=== PATIENT | male | born 1935 | race Caucasian/White ===

== ENCOUNTER 2017-09-10 16:11 | Inpatient (IN) | payer OTHER ==
[2017-09-10] MEDS ORDERED: MAG HYDROX/AL HYDROX/SIMETH 30 ML UDCUP PO ONE (16:24)
[2017-09-10] MEDS ORDERED: FAMOTIDINE 20 MG/NACL 50 ML IV ONE (16:24)
[2017-09-10] MEDS ORDERED: HYOSCYAMINE SULFATE 0.125 MG TAB PO ONE (16:24)
[2017-09-10] MEDS ORDERED: LIDOCAINE 2% VISCOUS 15 ML UDCUP PO ONE (16:24)
--- NOTE | 2017-09-10 16:33 | EDPHY ---
H & P Time Seen by Provider: 09/10/17 16:18 HPI/ROS: HPI Shortness of breath, burning in throat. 82-year-old male by private vehicle with his and daughter. This patient comes from [facility] where he lives with his . They moved here from [place] back in March. He has a history of atrial fibrillation and is on Eliquis, he has a pacemaker and has a history of type 1 diabetes with associated complications. He complains today of a sensation of burning in his throat up through his chest and progressively worsening shortness of breath and fatigue for the last 3 days. ROS: Constitutional: No fever, no chills. As above. Eyes: No discharge. No changes in vision. ENT: No sore throat. No nasal congestion or rhinorrhea. Respiratory: No cough. As above. Cardiac: As above, no new palpitations. Gastrointestinal: No abdominal pain, no vomiting, no diarrhea. Genitourinary: No hematuria. No dysuria or increased frequency with urination. Musculoskeletal: No back pain. No neck pain. No myalgias or arthralgias. Skin: No rashes. Neurological: No headache. No focal weakness or altered sensation. Past medical history: Type 1 diabetes, neuropathy, left upper extremity fistula , atrial fibrillation on Eliquis, pacemaker, kidney transplant, legally blind, left foot amputation. Social history: Nonsmoker. No alcohol. Here with his and daughter who is at the bedside. Physical Exam: General Appearance: Alert, mildly dyspneic, not in distress. He appears thin. This patient is responding to questions appropriately and in full sentences. This patient appears well-hydrated and well-nourished. Eyes: Pupils equal and round no pallor or injection. No lid edema, erythema or injection. ENT, Mouth: Mucous membranes are moist. The pharyngeal tissues are unremarkable. No edema or swelling. No asymmetry suggestive of abscess. No erythema or exudates. Respiratory: There are no retractions, lungs lung sounds anteriorly are shallow and distant. No wheezing. No rhonchi. Mild tachypnea. Cardiovascular: Irregular, irregular rhythm. No murmur. Gastrointestinal: Abdomen is soft and nontender, no masses, bowel sounds normal. No focal tenderness at McBurney's point. No Cameron sign. Neurological: Motor sensory function is grossly intact. Cranial nerves are normal. Gait is normal. Skin: Warm and dry, no rashes. Musculoskeletal: Neck is supple and nontender. Extremities are symmetrical. Left upper extremity AV fistula. All joints range without pain or impingement. Psychiatric: No agitation. No depression. Database: EKG: EKG time is 4:48 p.m.; EKG shows a narrow complex normal sinus versus ectopic rhythm with a ventricular rate of 74. 1st degree AV block noted, the QRS, QT intervals are within normal limits. PVC noted. There are no ST-T wave changes indicative of ischemic or injury pattern. No evidence of right heart strain. Interpreted by me. Imaging: Chest x-ray AP portable; the cardiac mediastinal silhouette is unremarkable. Right upper wall pacemaker. Leads appear to be intact. Interstitial lung disease. No evidence of infiltrate or pneumothorax. No acute cardiopulmonary disease process noted. Interpreted by me. Procedures: Emergency department course: Vital signs reviewed. He is moderately hypertensive. Pulse oximetry on room air is 97%. IV placed. Patient placed on a order packer or packager. He was placed on 2-3 L of nasal cannula oxygen. EKG obtained and reviewed by myself. 5:40 p.m., patient re-evaluated. Resting comfortably at this time. He feels much better after GI cocktail and Pepcid. He denies any sensation of burning from his stomach up to his chest. He also feels much less short of breath on oxygen. Pulse oximetry on 2 L of nasal cannula oxygen is 98-100%. I discussed the results of his diagnostic workup with him and his family. Plan for admission and further evaluation by hospitalist service reviewed. All of their questions were answered. Hospitalist paged. 5:45 p.m., spoke with on-call hospitalist. Case discussed in detail. Echocardiogram ordered. Results of this test will be followed up by the hospitalist service. The patient's remaining emergency department course under my care has been uneventful. The patient was admitted to telemetry in stable condition under the care of Dr. Dank Lomeli. Differential Diagnosis: The differential diagnosis on this patient includes but is not limited to congestive heart failure, pulmonary embolism, diabetic ketoacidosis, acute coronary syndrome, pericardial effusion, GERD, peptic ulcer disease. This represents a partial list of diagnoses considered. These considerations are based on history, physical exam, past history, reassessment and diagnostic testing. Constitutional: Initial Vital Signs O2 Sat (%) 100 05/13/18 16:24 O2 Delivery Mode Nasal Cannula O2 (L/minute) 3 Allergies/Adverse Reactions: No Known Allergies Allergy (Unverified 09/10/17 16:20) Home Medications: Medication Instructions Recorded Acetaminophen [Tylenol 325mg (*)] 325 mg PO DAILY PRN 09/10/17 Alfuzosin HCl [Alfuzosin HCl ER] 10 mg PO DAILY 09/10/17 Allopurinol [Allopurinol 100 MG 100 mg PO DAILY 09/10/17 (*)] Apixaban [Eliquis] 2.5 mg PO BID 09/10/17 Cholecalciferol Vit D3 [Vitamin D3 1,000 units PO DAILY 09/10/17 (*)] Finasteride [Proscar 5 MG (*)] 5 mg PO DAILY 09/10/17 Folic Acid/Vit B Com W/C 1 each PO DAILY 09/10/17 [Nephro-Marco Rx (RX)] Herbals/Supplements -Info Only 1 ea PO DAILY 09/10/17 Insulin Aspart [Novolog Flexpen] 0 unit SQ AC 09/10/17 Insulin Glargine,Hum.rec.anlog 8 - 10 units SQ DAILY 09/10/17 [Lantus Solostar] Lisinopril [Lisinopril] 20 mg PO HS 09/10/17 Midodrine HCl [Midodrine HCl] 5 mg PO DAILY PRN 09/10/17 Mycophenolate Mofetil [Cellcept] 500 mg PO BID 09/10/17 Pantoprazole Sodium [Protonix 40mg 40 mg PO DAILY 09/10/17 (*)] Polyethylene Glycol 3350 [Miralax 17 gm PO DAILY PRN 09/10/17 17 gm (*)] Ursodiol [Actigall 300MG (*)] 300 mg PO BID 09/10/17 cycloSPORINE, MODIFIED 25 mg PO BID 09/10/17 [Cyclosporine Modified] hydrALAZINE [Apresoline 10 mg (*)] 10 mg PO HS 09/10/17 predniSONE [predniSONE] 5 mg PO DAILY 09/10/17 Medical Decision Making - Diagnostics Imaging Results: Imaging Impressions Chest X-Ray 09/10/17 16:24 Impression: 1. Peribronchial thickening and some mild bibasilar fibrosis. 2. There is no evidence of congestive heart failure, or definite focal alveolar consolidation. - Data Points Laboratory Results: Laboratory Results 09/10/17 16:30 09/10/17 16:30 09/10/17 09/10/17 09/10/17 16:30 16:30 16:30 WBC 8.52 10^3/uL 10^3/uL (3.80-9.50) RBC 5.57 10^6/uL 10^6/uL (4.40-6.38) Hgb 15.5 g/dL g/dL (13.7-17.5) Hct 48.4 % % (40.0-51.0) MCV 86.9 fL fL (81.5-99.8) MCH 27.8 pg L pg (27.9-34.1) MCHC 32.0 g/dL L g/dL (32.4-36.7) RDW 15.4 % H % (11.5-15.2) Plt Count 688 10^3/uL H 10^3/uL (150-400) MPV 10.5 fL fL (8.7-11.7) Neut % (Auto) 72.0 % % (39.3-74.2) Lymph % (Auto) 15.0 % % (15.0-45.0) [place] % (Auto) 10.7 % % (4.5-13.0) Eos % (Auto) 1.2 % % (0.6-7.6) Baso % (Auto) 0.6 % % (0.3-1.7) Nucleat RBC Rel Count 0.0 % % (0.0-0.2) Absolute Neuts (auto) 6.14 10^3/uL 10^3/uL (1.70-6.50) Absolute Lymphs (auto) 1.28 10^3/uL 10^3/uL (1.00-3.00) Absolute Monos (auto) 0.91 10^3/uL H 10^3/uL (0.30-0.80) Absolute Eos (auto) 0.10 10^3/uL 10^3/uL (0.03-0.40) Absolute Basos (auto) 0.05 10^3/uL 10^3/uL (0.02-0.10) Absolute Nucleated RBC 0.00 10^3/uL 10^3/uL (0-0.01) Immature Gran % 0.5 % % (0.0-1.1) Immature Gran # 0.04 10^3/uL 10^3/uL (0.00-0.10) PT 14.2 SEC SEC (12.0-15.0) INR 1.08 (0.83-1.16) APTT 29.9 SEC SEC (23.0-38.0) D-Dimer 0.40 ug/mLFEU ug/mLFEU (0.00-0.50) Sodium 139 mEq/L mEq/L (135-145) Potassium 5.3 mEq/L H mEq/L (3.5-5.2) Chloride 100 mEq/L mEq/L (97-110) Carbon Dioxide 26 mEq/l mEq/l (22-31) Anion Gap 13 mEq/L mEq/L (8-16) BUN 32 mg/dL H mg/dL (7-23) Creatinine 1.1 mg/dL mg/dL (0.7-1.3) Estimated GFR > 60 Glucose 136 mg/dL H mg/dL (70-100) Calcium 11.0 mg/dL H mg/dL (8.5-10.4) Phosphorus 4.5 mg/dL mg/dL (2.5-4.5) Total Bilirubin 1.4 mg/dL mg/dL (0.1-1.4) Conjugated Bilirubin 0.6 mg/dL H mg/dL (0.0-0.5) Unconjugated Bilirubin 0.8 mg/dL mg/dL (0.0-1.1) AST 26 IU/L IU/L (17-59) ALT 16 IU/L L IU/L (21-72) Alkaline Phosphatase 71 IU/L IU/L (38-126) Troponin I 0.039 ng/mL H ng/mL (0.000-0.034) NT-Pro-B Natriuret Pep 3640 pg/mL H pg/mL (0-450) Total Protein 6.8 g/dL g/dL (6.3-8.2) Albumin 3.6 g/dL g/dL (3.5-5.0) TSH 3.560 uIU/mL uIU/mL (0.465-4.680) Medications Given: Discontinued Medications Al Hydroxide/Mg Hydroxide (Maalox Susp) 30 ml PO ONCE ONE Stop: 09/10/17 16:25 Last Admin: 09/10/17 16:38 Dose: 30 ml Hyoscyamine Sulfate (Levsin, Hyomax-Sl) 0.25 mg PO ONCE ONE Stop: 09/10/17 16:25 Last Admin: 09/10/17 16:38 Dose: 0.25 mg Famotidine/Sodium Chloride (Pepcid 20 Mg (Premix)) 50 mls @ 200 mls/hr IV EDNOW ONE Stop: 09/10/17 16:38 Last Admin: 09/10/17 16:39 Dose: 50 mls Lidocaine (Lidocaine 2% Viscous) 15 ml PO ONCE ONE Stop: 09/10/17 16:25 Last Admin: 09/10/17 16:38 Dose: 15 ml Departure - Departure Disposition: [facility] Inpatient Acute Clinical Impression: Dyspnea, Elevated troponin, Possible CHF, Mild hyperkalemia, Thrombocytosis, Prerenal azotemia
--- NOTE | 2017-09-10 16:51 | CPEKG ---
Heart Rate: 70 RR Interval: 857 P-R Interval: 224 QRSD Interval: 82 QT Interval: 370 QTC Interval: 400 P Randlett: 265 QRS Randlett: 22 T Wave Randlett: 62 EKG Severity - ABNORMAL ECG - EKG Impression: SINUS OR ECTOPIC ATRIAL RHYTHM EKG Impression: MULTIPLE VENTRICULAR PREMATURE COMPLEXES EKG Impression: FIRST DEGREE AV BLOCK EKG Impression: LOW VOLTAGE IN FRONTAL LEADS Electronically Signed By: Brennen Washington 10-Sep-2017 17:08:33
[2017-09-10 17:07] LABS: PLATELET COUNT 688 10^3/uL (150-400)
[2017-09-10 17:21] LABS: INR 1.08 (0.83-1.16); PROTIME(PATIENT) 14.2 SEC (12.0-15.0)
[2017-09-10] MEDS ORDERED: MIDODRINE HCL 5 MG TAB PO PRN (19:39)
[2017-09-10] MEDS ORDERED: POLYETHYLENE GLYCOL 3350 17 GM PKT PO PRN (19:39)
[2017-09-10] MEDS ORDERED: ACETAMINOPHEN 325 MG TAB PO PRN (19:41)
[2017-09-10] MEDS ORDERED: ONDANSETRON 4 MG/2 ML VIAL IVP PRN (19:41)
[2017-09-10] MEDS ORDERED: MBX SOLN 30 ML BOTTLE PO PRN (19:41)
[2017-09-10] MEDS ORDERED: ONDANSETRON DISINTEGRATING 4 MG TAB PO PRN (19:41)
--- NOTE | 2017-09-10 20:16 | GHP ---
[f rep st] HISTORY AND PHYSICAL DATE OF ADMISSION: 09/10/2017 The patient is an 82-year-old gentleman with a history of longstanding diabetes, renal transplant, BP H and hypertension who presents with burning in his throat. He has never had GERD before, but he agueda pects that it feels like it. He has not vomited. He has had no hematemesis, coffee-ground emesis or bright red blood or melena. He is not short of breath, although he has recently moved here from [facility] over the winter and he does note a little bit more shortness of breath at baseline. He has not had fever, chills, cough, or sputum. He has not had lower extremity edema. PND, orthopnea. REVIEW OF SYSTEMS: Complete 10-point review of systems conducted, negative except as noted in the HP I. PAST MEDICAL HISTORY: 1. Diabetes times about 58 years. 2. History of duodenal ulcer. 3. Renal transplant in 1998. 4. BPH. 5. History of a biliary surgery that is not entirely clear. It sounds like it was gallbladder relat ed, done at [facility]. 6. Orthostatic hypotension. 7. Hypertension. 8. Pacemaker. 9. Suspected atrial fibrillation. ALLERGIES: No known drug allergies. HOME MEDICATIONS: Alfuzosin, allopurinol, apixaban, vitamin D3, cyclosporine, finasteride, folate, h ydralazine, insulin aspart, insulin glargine, lisinopril, midodrine, mycophenolate mofetil, pantopraz ole, MiraLAX, prednisone 5, Ursodiol. SOCIAL HISTORY: He is retired . Moved to [place] to be with his daughter. Minimal tobacco and alcohol in his life. FAMILY HISTORY: His daughter is present at bedside and healthy. PHYSICAL EXAMINATION: VITAL SIGNS: Temp 37. Blood pressure 178/100, now 155/95. Pulse 80, breathi ng 18 times a minute, 97% on room air. GENERAL: No acute distress. HEENT: Sclerae anicteric. Orop harynx clear. Mucous membranes are moist. NECK: Supple without lymphadenopathy or JVD. LUNGS: Cl ear to auscultation bilaterally. There are no crackles. HEART: S1, S2 without murmurs. ABDOMEN: Soft, nontender, nondistended. LOWER EXTREMITIES: Without edema. Calves are nontender. SKIN: Wit hout rash. NEUROLOGIC: Nonfocal. LABS: White count 8.5, hematocrit 48, platelets are 688,000. He had a previous platelet count that was elevated as well. D-dimer 0.4. Coags are normal. Sodium is 139, potassium 5.3, chloride is 100, bicarb is 26, BUN 32, creatinine 1.1, glucose 136, tori cium is 11. LFTs are normal, other than a slightly bilirubin. Troponin 0.039. BNP is 36 00. Prior in May of this year was 4600. Chest x-ray interpreted by in shows pacemaker in place. No acute cardiopulmonary disease. EKG interpreted by in shows sinus at 70, with normal axis and intervals. No ST or T-wave changes. I discussed the case with Dr. Brennen Washington. ASSESSMENT/PLAN: 82-year-old gentleman with multiple comorbidities here with likely reflux. 1. Reflux. He responded well to a gastrointestinal cocktail in the emergency department. I will co ntinue that as needed. Will continue his proton pump inhibitor. There is no indication of gastroint estinal bleeding. 2. Elevated BNP. Notably he had a BNP earlier which was even higher. The patient is euvolemic. Ec hocardiogram has been ordered. 3. Indeterminate troponin. I suspect this is his baseline. I do not think his gastroesophageal ref lux disease symptoms represent anginal symptoms, and he has chronic kidney disease. We will follow o n telemetry. 4. Anticoagulation. The patient takes therapeutic anticoagulation, has pacemaker. 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 5. Disposition: Observation status. He is therapeutically anticoagulated. /[id number]/MODL
[2017-09-10] MEDS ORDERED: D50W 25 GM/50 ML SYR IVP PRN (20:37)
[2017-09-10] MEDS ORDERED: hydrALAZINE 10 MG TAB PO SCH (21:00)
[2017-09-10] MEDS ORDERED: LISINOPRIL 20 MG TAB PO SCH (21:00)
[2017-09-10] MEDS: CYCLOSPORINE MODIFIED 25 MG PO SCH (21:09)
[2017-09-10] MEDS: APIXABAN 2.5 MG TAB PO SCH (21:09)
[2017-09-10] MEDS: URSODIOL 300 MG CAP PO SCH (21:10)
[2017-09-10] MEDS: MYCOPHENOLATE MOFETIL 250 MG CAP PO SCH (21:10)
[2017-09-11 04:19] LABS: PLATELET COUNT 625 10^3/uL (150-400)
[2017-09-11] MEDS ORDERED: NON-FORMULARY NEW DRUG (Insulin Aspart [Novolog Flexpen] 0 UNIT) SQ SCH (07:30)
[2017-09-11] MEDS ORDERED: INSULIN GLARGINE 100 UNITS/ML SYRINGE SC ONE (08:15)
[2017-09-11] MEDS: INSULIN LISPRO 100 UNIT/ML SC SCH ×2 (08:17→11:57)
[2017-09-11] MEDS: APIXABAN 2.5 MG TAB PO SCH (08:18)
[2017-09-11] MEDS: MYCOPHENOLATE MOFETIL 250 MG CAP PO SCH (08:18)
[2017-09-11] MEDS: CYCLOSPORINE MODIFIED 25 MG PO SCH (08:18)
[2017-09-11] MEDS: URSODIOL 300 MG CAP PO SCH (08:18)
[2017-09-11] MEDS ORDERED: predniSONE 5 MG TAB PO SCH (09:00)
[2017-09-11] MEDS ORDERED: Herbals/Supplements -Info Only PO SCH (09:00)
[2017-09-11] MEDS ORDERED: FINASTERIDE 5 MG TAB PO SCH (09:00)
[2017-09-11] MEDS ORDERED: CHOLECALCIFEROL VIT D3 1,000 UNITS TAB PO SCH (09:00)
[2017-09-11] MEDS ORDERED: PANTOPRAZOLE SODIUM 40 MG TAB PO SCH (09:00)
[2017-09-11] MEDS ORDERED: INSULIN GLARGINE 100 UNITS/ML UNIT SC SCH (09:00)
[2017-09-11] MEDS ORDERED: NEPHROVITE FOLIC ACID/VIT B&C 1 TAB PO SCH (09:00)
[2017-09-11] MEDS ORDERED: NON-FORMULARY NEW DRUG (Alfuzosin Hcl [Alfuzosin Hcl Er] 10 MG) PO SCH (09:00)
[2017-09-11] MEDS ORDERED: INSULIN GLARGINE HUM REC ANLOG SQ SCH (09:00)
[2017-09-11] MEDS ORDERED: ALLOPURINOL 100 MG TAB PO SCH (09:00)
--- NOTE | 2017-09-11 09:31 | HOSPPROG ---
Hospitalist Progress Note Assessment/Plan: 82-year-old man is admitted with atypical throat pain. He has multiple risk factors for coronary artery disease and a indeterminate troponin. # throat pain: Not exertionally related he thinks is related to food and likely secondary to reflux however with his long-term diabetes and renal transplant and indeterminate troponins it is somewhat concerning for ischemia. Unfortunately he has a paced rhythm in the EKG is difficult to interpret * Cardiology consult for recommendations regarding risk stratification # long-term type 1 diabetes. Continues use medication # history of renal failure status post renal transplant with mild renal insufficiency with a creatinine of 1.1 * Continue to monitor # history of atrial fibrillation currently rate controlled and on Eliquis for anticoagulation. 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 Currently having no further symptoms of his throat pain. This has been going on for several weeks intermittently. Objective: Vital Signs Temp Pulse Resp BP Pulse Ox 36.8 C 74 18 168/88 H 97 09/11/17 07:34 09/11/17 07:34 09/11/17 07:34 09/11/17 07:34 09/11/17 07:34 Laboratory Results 09/11/17 03:20 09/11/17 03:20 09/10/17 09/11/17 09/12/17 05:59 05:59 05:59 Intake Total 150 Output Total 125 Balance 150 -125 PT 14.2 SEC (12.0-15.0) 09/10/17 16:30 INR 1.08 (0.83-1.16) 09/10/17 16:30 - Physical Exam Constitutional: no apparent distress, chronically ill appearing Eyes: PERRL, anicteric sclera, EOMI Ears, Nose, Mouth, Throat: moist mucous membranes, hearing normal Cardiovascular: regular rate and rhythym Respiratory: no respiratory distress, no rales or rhonchi, reduced air movement Gastrointestinal: normoactive bowel sounds, no palpable masses Skin: normal color Neurologic: No facial droop Psychiatric: interacting appropriately ICD10 Worksheet Patient Problems: Problems Problem Status Onset Dyspnea Acute Elevated troponin Acute Thrombocytosis Acute Prerenal azotemia Acute
[2017-09-11 11:33] VITALS: BP 145/75
--- NOTE | 2017-09-11 12:54 | GCON ---
[f rep st] CONSULTATION CARDIOLOGY CONSULTATION DATE OF CONSULTATION: 09/11/2017 CHIEF COMPLAINT: Throat discomfort. HISTORY OF PRESENT ILLNESS: The patient is a gentleman who has had diabetes since he was 24. He has been having some throat discomfort, and it is a burning sensation. It may or may not come wit h food. He has been bothered with this, been having trouble with his appetite, and came to the [facility]. He was admitted to make sure that he did not have any other major pathology. In terms of vascular disease, he is known to have an abnormal nuclear stress test recently done by Dr Dewey Gupta at [facility]. At that time, Dr. Gupta told him that there is no meyer to have a coronary angiogram. He could do it a t the time or he could wait until later on to have an angiogram done. The patient, himself, is retir , and [facility], and he [facility] with the [facility] [place], [place] on the of this month. He has not been getting any chest pain, chest tightness, jaw pain, arm pain. He has no heaviness acr oss his chest. He has nothing that radiates into his arms or jaw. The throat discomfort seems to be better and did not come on with exertion, did not come on with stress, and did not go away with rest. Often happen when he was resting. CARDIAC RISK FACTORS: The patient does not have orthopnea, PND, dyspnea on exertion. He does not have pleuritic chest pain. He has not been having nausea, vomiting, diarrhea. He has not had any fever, chills, or cough. He has not had rheumatic disease. He has a history of atrial fibrillation. He has no history of ventricular arrhythmias. He has a pacemaker in place. He has had atrial fibrillation. Positive for diabetes since age 24, and he is now 82 years old. He has had hypertension. He says he has no hyperlipidemia. No history of coronary artery disease. No history of myocardial infarction. He is not a smoker, although he smoked in the past. He does not have hyperuricemia, and he has no family history of premature coronary artery disease. He has never been obese. His cardiovascular history also includes a history in the past of atrial fibrillation. He has been having some problems with his complications from diabetes including amputations of his to es, vascular complications. He is trying to walk with a walker now. He has a history of neuropathy. He received a pacemaker. ALLERGIES: None. MEDICATIONS: There are approximately 15 medicines, and they are all listed, includes aspirin, many m edicines for his diabetes. He is on allopurinol, though he denies gout, and he is taking an ROB inhi bitor, and he is on other medications to control his blood pressure. SOCIAL HISTORY: He was born in [place], [place]. He was a weapons officer. At age 24, he developed diabetes, and he stayed in the [employer] on a protocol. He remained until he retired. 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 Once he retired, he worked for the [employer] in the [employer]. He was in [place], and he recently moved to be closer to a [facility]. He does live with his . He does not smoke. He does not drink significant amounts of alc ohol. He was disabled from the in 1975 for his diabetes. REVIEW OF SYSTEMS: He has had BPH. History of duodenal ulcer. History of GI bleeds. History of renal transplant, 1998. History of BPH. Question of hyperuricemia The remainder of the review of systems is reviewed in the chart. Ten-point review of systems negativ e except as noted on this record and in the chart. FAMILY HISTORY: There is no family history of premature coronary disease. No history of unexplained sudden at a young age in the family. PHYSICAL EXAMINATION: VITAL SIGNS: Blood pressure is 147/90, respiratory rate is 12. He is lying f lat on the hospital bed comfortably. His heart rate is 75. HEENT: Pupils are equal and reactive. NECK: Supple. CARDIOVASCULAR: PMI in the 5th intercostal space, midclavicular line. He has S1, S2 , systolic murmur at the left sternal border. No diastolic murmur. No S3, S4. No rubs. PULMONARY: Rhonchi bilaterally. Increased AP diameter. No dullness. ABDOMEN: Soft, nontender, and there ar e no masses right now. No bruits. No hepatomegaly. EXTREMITIES: No edema. Negative for inflammat ion. SKIN: Age-related changes. NEUROLOGIC: No focal neurologic deficits. PSYCH: No obvious anx iety or depression. DIAGNOSTIC DATA: His BNP is elevated. Troponins are in the indeterminate range otherwise and are at tached. Chest x-ray shows pacemaker. No acute EKG changes. ASSESSMENT AND PLAN: 1. Throat discomfort. He is being evaluated by the hospitalist service. The patient would really like to get his care at the [facility] and have any procedures that need to be done down there. This throat discomfort does not sound like angina. However, it is something that he does need to pay attention to, and he is aware of that. He will return if it gets serious or worse. He will also be in touch with the [place]. I do not think it is angina. It is atypical. 1. Diabetes mellitus. 2. Renal transplant. 3. Atrial fibrillation. 4. Permanent pacemaker. 5. Hypertension. The patient clearly has vascular disease. He has significant peripheral vascular disease with amputa tion of his toes. He must have very significantly abnormal coronary arteries. He was recently evalu ated by Dr. Patrick Gupta and was told that his nuclear test was abnormal, but that he did not need a co ronary angiogram right now. The patient, himself, wants to transfer his care to the [facility] and does not want coronary angiography now. He wants to receive his care through [facility], and he feels like that is moving along, and they have accepted him. 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 I am certainly concerned about him, and I have encouraged him to get his full cardiovascular evaluati on as soon as possible, and this is something he will do. He is unclear about how much atrial fibrillation he has had or he has not had. He was not put on ful l anticoagulation and, at this time, will take baby aspirin, but with his CHADS-VASc score, he would certainly be a candidate for full anticoagulation. His doctors have not wanted him to do that, so th ey know him better than we do, and this is not a time for us to interfere with their long-term plans for his anticoagulation. He is, however, at significant risk of stroke if he is having atrial fibrillation. He is also at significant risk of stroke given all his vascular disease and his many, many, many year s of diabetes mellitus, as well as hypertension, etc. I have discussed his case with the hospitalist , and the patient is going to be discharged today. His troponins are coming in borderline at the mos t, and the patient wants no further care here. He understands that this is offered to him and that he is not interested in having it. If he should deteriorate, if he should get chest discomfort that comes on with exertion, if he should get chest discomfort that comes along with stress, if he gets chest discomfort that goes away with r est, he is going to be back in touch with the system. All of his questions have been answered. Thank you very much for asking us see the patient. /[id number]/MODL
--- NOTE | 2017-09-11 12:55 | ECHO ---
[email or web address] [address] [address] Main: [phone] Fax: Transthoracic Echocardiogram Name: ROSALINE LEWIS MR#: [id number] Study Date: 09/11/2017 Study Time: 09:45 AM Date of : 1935 Age: 82 year(s) Height: 180.3 cm (71 in.) Weight: 65.32 kg (144 lb.) BSA: 1.83 m2 Gender: Male Examination: Echo Indication: Chest Pain Image Quality: Adequate Contrast: Requested by: Brennen Ruiz BP: 168 mmHg/88 mmHg Heart Rate: Rhythm: Indication: Chest Pain Procedure Staff Terminal Carman: Gwen Velez [facility] Reading Physician: Sae Novak MD Requesting Provider: Conclusions: Normal size left ventricle. Concentric LV hypertrophy. Normal global systolic LV function. EF is 55 %. No regional wall motion abnormality. Normal diastolic LV function. Basal inferior wall in apical 2 chamber appears hypokinetic. Normal size right ventricle. Normal RV function. The left atrium is severely dilated. The right atrium is borderline dilated. The mitral valve is normal in appearance. Moderate mitral annular calcification. Mild mitral valve regurgitation is present. Mitral valve leaflets appear moderately thickened and possibly mildly restricted. Mean pressure gradient of 2 mmhg does not indicate stenosis. Aortic sclerosis is present. There is no significant aortic valve regurgitation. Mild calcific aortic valve stenosis. Mild tricuspid regurgitation is present. The pulmonary artery pressure is normal. Right ventricular systolic pressure measures 32mmHg. There is no pulmonic regurgitation seen. Normal size aortic root measuring 3.3 cm. Normal size ascending aorta measuring 3.6 cm. Measurements: Chambers Valvular Assessment AV/MV Valvular Assessment TV/PV Patient: ROSALINE LEWIS Study Date: 09/11/2017 Page 1 of 3 09:45 AM Normal Normal Normal Name Value Range Name Value Range Name Value Range Ao Trinh (2D): 3.3 cm (1.4 cm-2.6 AV Vmax: 2.10 m/s (1 m/s-1.7 TR Vmax: 2.61 mm/s ( - ) cm) m/s) TR PGmax: 27 mmHg ( - ) IVSd (2D): 1.6 cm (0.6 cm-1.1 AV meanP mmHg ( - ) syst. PAP: 32 mmHg ( - ) cm) FAVIOLA (VTI): 1.4 cm ( - ) PV Vmax: 0.99 m/s (0.6 m/s-0.9 LVDd (2D): 4.2 cm (4.2 cm-5.9 MV E Vmax: 0.93 m/s ( - ) m/s) cm) MV A Vmax: 0.48 m/s ( - ) PV PGmax: 4 mmHg ( - ) LVDs (2D): 2.8 cm (2.1 cm-4 MV E/A: 1.94 ( - ) cm) MV meanP mmHg ( - ) LVPWd (2D): 1.4 cm (0.6 cm-1 cm) MV PHT: 0.093 s ( - ) LVOTd 2.2 cm 2.2 cm mm MVA (Vmax): 1.5 m/s ( - ) LVEF (BP): 55 % (>=55 %) MVA (PHT): 2.4 s ( - ) RVDd(2D): 2.6 cm (1.9 cm-3.8 cmmm) Continued Measurements: Chambers Valvular Assessment AV/MV Valvular Assessment TV/PV Name Value Name Value Name Value LADs: 4.1 cm MV DecTime: 299 m/s CVP (est.): 5 mmHg LADs Lon.2 cm MV E' Septal: 0.06 m/s LA Area: 27.3 cm2 MV E/E' Septal: 15.60 LA Volume: 102 ml MV E/E' Lateral: 7.50 LA Volume Index: 55.7 ml/m2 MV VTI: 35.60 cm RA Area: 19.1 cm2 Additional Vessels Name Value Ao Ascendin.6 cm Findings: Left Ventricle: Normal size left ventricle. Concentric LV hypertrophy. Normal global systolic LV function. EF is 55 %. No regional wall motion abnormality. Normal diastolic LV function. Basal inferior wall in apical 2 chamber appears hypokinetic. Right Ventricle: Normal size right ventricle. Normal RV function. Left Atrium: The left atrium is severely dilated. Right Atrium: The right atrium is borderline dilated. Mitral Valve: The mitral valve is normal in appearance. Moderate mitral annular calcification. Mild mitral valve regurgitation is present. Mitral valve leaflets appear moderately thickened and possibly mildly restricted. Mean pressure gradient of 2 mmhg does not indicate stenosis. Aortic Valve: The aortic valve is tri-leaflet. Aortic sclerosis is present. There is no significant aortic valve regurgitation. Mild calcific aortic valve stenosis. Tricuspid Valve: The tricuspid valve is normal in appearance and function. Mild tricuspid regurgitation is present. The pulmonary artery pressure is normal. Right ventricular systolic pressure measures 32mmHg. Pulmonic Valve: The pulmonic valve is normal in appearance and function. There is no pulmonic regurgitation seen. Aorta: The aorta is normal. Normal size aortic root measuring 3.3 cm. Normal size ascending aorta measuring 3.6 cm. IVC: Not well seen. Patient: ROSALINE LEWIS Study Date: 09/11/2017 Page 2 of 3 09:45 AM Pericardium: No pericardial effusion. No pleural effusion. Exam Comments: Clinical correlation is recommended for evaluation of mitral valve. Calcification of mitral valve with no indication of mitral stenosis by pressure gradients. (No Signature Object) Patient: ROSALINE LEWIS Study Date: 09/11/2017 Page 3 of 3 09:45 AM [id number]
--- NOTE | 2017-09-11 15:29 | GDS ---
[f rep st] DISCHARGE SUMMARY DIAGNOSES: 1. Throat pain, unclear etiology. Patient defers workup and would prefer to work it up at the [facility]. 2. Indeterminate troponins, unclear baseline. The patient would like to follow up with [facility]. 3. Type 1 diabetes, currently on insulin. 4. History of renal failure status post renal transplant, followed at the [facility]. 5. History of atrial fibrillation, on Eliquis for anticoagulation. Has a pacemaker. 6. Benign prostatic hypertrophy by history. 7. Hypertension. 8. History of duodenal ulcer. CONSULTATIONS: Dr. Sae Novak. HOSPITAL COURSE: The patient is an 82-year-old man with multiple medical issues including type 1 alla betes, renal failure status post transplant, hypertension. He comes in with atypical throat pain abi t is associated with food intake and not associated with exertion. However, on his evaluation, his E KG was a paced rhythm and so difficult to interpret, and he had indeterminate troponins. He has been pain free since he was admitted to the hospital. After his GI cocktail was given, his pain went chely y. Cardiology was consulted because of his indeterminate troponins and risk factors. Dr. Novak had a long discussion with the patient. He does have a history of an abnormal stress test in the past a nd has refused angiogram at that time. He continues to refuse further workup here in the hospital, a nd would prefer to follow up with the [facility] for further evaluation of his heart. The pat ient has been pain free. His troponins have been flat with no significant arrhythmias noted on telem etry. I think it is safe for him to be discharged home. However, I do recommend he follow up prompt ly with the [facility] and he has an appointment scheduled in a couple weeks. Cardiology did spend quite a bit of time with him and discussed warning signs to come back in to the ER. However, a t this time, he is back to baseline. CONDITION ON DISCHARGE: Good. Vital signs have been stable. Heart rate in the 70s to 80s. Blood p ressure 145/75. He is 99% on room air. He is alert. Heart is regular. Lungs are relatively clear. He has no significant edema. DISCHARGE MEDICATIONS: Please see discharge medication form. FOLLOWUP: He will follow up with the [facility] as scheduled. He has refused further interve ntion or workup here at the hospital. /[id number]/MODL
--- NOTE | 2017-09-11 15:37 | PDMN ---
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
--- NOTE | 2017-09-11 16:29 | ASMTLACE ---
LACE Length of stay for Answers: Less than 1 day current admission Acuity / Level of Answers: Yes Care: Did the patient have an inpatient admission? Comorbidities - select Answers: Diabetes (uncontrolled or all that apply controlled) Other Notes: Pacemaker # of Emergency department Answers: 1-2 visits in the last 6 months Score: 6 Date Signed: 09/11/2017 04:29 PM Electronically Signed By:Yanelis Whiteside RN
--- NOTE | 2017-09-13 13:42 | ASDISCHSUM ---
Discharge Information Plan Status:Home with No Needs Medically Cleared to Leave:09/11/2017 Discharge Date:09/11/2017 01:10 PM CM D/C Disposition:Home, Routine, Self-Care ADT D/C Disposition:Home, Routine, Self-Care Projected Discharge Date:09/11/2017 01:10 PM Transportation at D/C: Discharge Delay Reason: Follow-Up Date:09/11/2017 01:10 PM Discharge Slot: Final Diagnosis: Placement Information Patient Contact Information Contact Name:JOHNWILNERTATAPARVIZ Relationship: Address:[address] [address] City:[place] Alternate Phone: State/Zip Code:[place] [address] Email: Financial Information Financial Class:Medicare Primary Plan Desc:MEDICARE INPATIENT Primary Plan Number:[id number] Secondary Plan Desc:[facility] Secondary Plan Number:[id number] Assessment Information LACE LACE Length of stay for Answers: Less than 1 day current admission Acuity / Level of Answers: Yes Care: Did the patient have an inpatient admission? Comorbidities - select Answers: Diabetes (uncontrolled or all that apply controlled) Other Notes: Pacemaker # of Emergency department Answers: 1-2 visits in the last 6 months Score: 6 Date Signed: 09/11/2017 04:29 PM Electronically Signed By:Yanelis Whiteside RN Intervention Information
== END 2017-09-11 13:10 | disposition home or self-care (01) | DRG 155 ==
LOC: F2W 19:44
PROVIDERS: ADMIT Internal Medicine; ATTEND Internal Medicine
DX: R07.0 Pain in throat (principal); Z94.0 Kidney transplant status; R94.31 Abnormal electrocardiogram [ECG] [EKG]; E10.9 Type 1 diabetes mellitus without complications; I48.91 Unspecified atrial fibrillation; N40.0 Benign prostatic hyperplasia without lower urinary tract symptoms; I10 Essential (primary) hypertension; I73.9 Peripheral vascular disease, unspecified; Z79.4 Long term (current) use of insulin; Z95.0 Presence of cardiac pacemaker; Z79.01 Long term (current) use of anticoagulants; Z89.429 Acquired absence of other toe(s), unspecified side
CPT/HCPCS: 96365; J1815; J7512

== ENCOUNTER 2017-11-26 14:46 | Inpatient (IN) | payer OTHER ==
--- NOTE | 2017-11-26 15:01 | EDPHY ---
H & P Time Seen by Provider: 11/26/17 14:58 HPI/ROS: Chief complaint. Stroke activation HPI. Patient is an 82-year-old male presents emergency department with left facial numbness and droop earlier and left arm weakness and numbness. His symptoms began yesterday at 4:00 p.m.. Abrupt onset after having a late lunch. The patient decided he would be better if he went home and laid down. He felt that the symptoms were better when he was lying down however they were present this morning when he woke up. Family has had to convince him to come to the hospital. Family notes that his left facial droop is improved. They note that his speech is normal. He is mentating appropriately. However he continues to have left arm weakness. Leg does not seem to be involved. No similar symptoms previously. No headache, chest pain, shortness of breath. Patient is on Eliquis as a blood thinner for atrial fibrillation. He also has a kidney transplant on cyclosporin and prednisone. No fever ROS Constitutional. no fever/chills, no weakness Eyes. no problems with vision ENT. no sore throat, no nasal drainage Cardiovascular. no chest pain Respiratory. no shortness of breath, no cough Abdominal. no abdominal pain, no nausea/vomiting, no diarrhea . no problems urinating MS. no calf pain/swelling, no neck/back pain, no joint pain Skin. no rash Lymph. no swollen glands Neuro. Left face numbness and droop. Left arm weakness. Past Medical/Surgical History: Kidney transplant, atrial fibrillation, diabetes, pacemaker, left arm fistula, blind, peptic ulcer disease, left foot amputation, cholecystectomy Social History: , nonsmoker, no alcohol Smoking Status: Former smoker Physical Exam: General Appearance: Alert well-developed male mild distress vital signs are stable Eyes: Pupils equal and round no pallor or injection. ENT, Mouth: Mucous membranes are moist. Respiratory: There are no retractions, lungs are clear to auscultation. Cardiovascular: Regular rate and rhythm. Gastrointestinal: Abdomen is soft and nontender, no masses, bowel sounds normal. Neurological: Awake and alert. Speech is normal per family. Cranial nerves are intact without facial droop or numbness now to the face. Weakness and ataxia and pronator drift with the left arm. Ataxic with [id number] with the left index finger. No symptoms for the left leg. Skin: Warm and dry, no rashes. Musculoskeletal: Neck is supple nontender. Extremities symmetrical, full range of motion. Psychiatric: Patient is oriented X 3, there is no agitation. Constitutional: Initial Vital Signs Heart Rate 72 11/26/17 15:00 Respiratory Rate 18 11/26/17 15:00 Blood Pressure 131/71 H 11/26/17 15:00 O2 Sat (%) 99 11/26/17 15:00 O2 Delivery Mode Room Air Allergies/Adverse Reactions: No Known Allergies Allergy (Verified 11/26/17 15:02) Home Medications: Medication Instructions Recorded Acetaminophen [Tylenol 325mg (*)] 325 mg PO DAILY PRN 09/10/17 Alfuzosin HCl [Alfuzosin HCl ER] 10 mg PO DAILY 09/10/17 Allopurinol [Allopurinol 100 MG 100 mg PO DAILY 09/10/17 (*)] Apixaban [Eliquis] 2.5 mg PO BID 09/10/17 Cholecalciferol Vit D3 [Vitamin D3 1,000 units PO DAILY 09/10/17 (*)] Finasteride [Proscar 5 MG (*)] 5 mg PO DAILY 09/10/17 Folic Acid/Vit B Com W/C 1 each PO DAILY 09/10/17 [Nephro-Marco Rx] Herbals/Supplements -Info Only 1 ea PO DAILY 09/10/17 Insulin Aspart [Novolog Flexpen] 0 unit SQ AC 09/10/17 Insulin Glargine,Hum.rec.anlog 8 - 10 units SQ DAILY 09/10/17 [Lantus Solostar] Lisinopril 20 mg PO HS 09/10/17 Midodrine HCl 5 mg PO DAILY PRN 09/10/17 Mycophenolate Mofetil [Cellcept] 500 mg PO BID 09/10/17 Pantoprazole Sodium [Protonix 40mg 40 mg PO DAILY 09/10/17 (*)] Polyethylene Glycol 3350 [Miralax 17 gm PO DAILY PRN 09/10/17 17 gm (*)] Ursodiol [Actigall 300MG (*)] 300 mg PO BID 09/10/17 cycloSPORINE, MODIFIED 25 mg PO BID 09/10/17 [Cyclosporine Modified] hydrALAZINE [Apresoline 10 mg (*)] 10 mg PO HS 09/10/17 predniSONE 5 mg PO DAILY 09/10/17 Medical Decision Making - Diagnostics EKG Interpretation: EKG is interpreted by me and shows paced rhythm. QRS normal. Frequent PVCs. No significant ST elevation or depression. The rate is 75 Imaging Results: Imaging Impressions Head CT 11/26/17 14:51 Impression: 1. No acute intracranial hemorrhage or evidence of acute ischemia. 2. Atrophy and diffuse confluent white matter disease. Findings discussed with Emergency Department physician, Kevin Orellana on 2017, 15:08. Noncontrast head CT reviewed by me and discussed with Dr. Rasmussen shows atrophy and white matter disease but no intracranial bleeding Procedures: IV normal saline, monitor Stroke activation is called [facility] consulted and examines the patient on the robot ED Course/Re-evaluation: Patient remains stable on re-evaluation 3:30 p.m.. The patient and family and I discussed laboratory EKG imaging study results. We discussed treatment plan including recommendation for admission. They expressed understanding and agreement I consulted and discussed the case with Dr. Luther for [facility]. Because of the kidney transplant he recommends no further contrast studies. As the patient has a pacemaker he recommends no MRI. I consulted discussed case with Dr. Small, hospitalist, who agrees to the admission Differential Diagnosis: This appears to be CVA but he is outside of treatment window at approximately 23 hr post symptom onset. He has had a kidney transplant an is a immunosuppressed. No further perfusion studies are recommended because of contrast toxicity the kidney. No MRI is recommended at this point in time as the the patient has a pacemaker. Recommendation is for ultrasound and repeat non contrast CTs. Critical Care Time: Critical care time exclusive procedures 45 min - Data Points Laboratory Results: Laboratory Results 11/26/17 15:00 11/26/17 15:00 11/26/17 11/26/17 11/26/17 15:01 15:00 15:00 WBC RBC Hgb POC Hgb 17.7 gm/dL H gm/dL (13.7-17.5) Hct POC Hct 52 % H % (40-51) MCV MCH MCHC RDW Plt Count MPV Neut % (Auto) Lymph % (Auto) Ballard % (Auto) Eos % (Auto) Baso % (Auto) Nucleat RBC Rel Count Absolute Neuts (auto) Absolute Lymphs (auto) Absolute Monos (auto) Absolute Eos (auto) Absolute Basos (auto) Absolute Nucleated RBC Immature Gran % Immature Gran # PT INR APTT POC Sodium 139 mEq/L mEq/L (135-145) Sodium 136 mEq/L mEq/L (135-145) POC Potassium 4.3 mEq/L mEq/L (3.3-5.0) Potassium 4.6 mEq/L mEq/L (3.3-5.0) POC Chloride TNP Chloride 104 mEq/L mEq/L (97-110) Carbon Dioxide 22 mEq/l mEq/l (22-31) Anion Gap 10 mEq/L mEq/L (8-16) POC BUN 45 mg/dL H mg/dL (7-23) BUN 38 mg/dL H mg/dL (7-23) Creatinine 1.1 mg/dL mg/dL (0.7-1.3) POC Creatinine 1.2 mg/dL mg/dL (0.7-1.3) Estimated GFR > 60 Glucose 237 mg/dL H mg/dL (70-100) POC Glucose 233 mg/dL H mg/dL (70-100) Calcium 9.0 mg/dL mg/dL (8.5-10.4) POC Troponin I 0.01 ng/mL ng/mL (0.00-0.08) 11/26/17 11/26/17 11/26/17 15:00 15:00 14:57 WBC 8.27 10^3/uL 10^3/uL (3.80-9.50) RBC 5.79 10^6/uL 10^6/uL (4.40-6.38) Hgb 16.2 g/dL g/dL (13.7-17.5) POC Hgb Hct 50.5 % % (40.0-51.0) POC Hct MCV 87.2 fL fL (81.5-99.8) MCH 28.0 pg pg (27.9-34.1) MCHC 32.1 g/dL L g/dL (32.4-36.7) RDW 16.2 % H % (11.5-15.2) Plt Count 648 10^3/uL H 10^3/uL (150-400) MPV 10.6 fL fL (8.7-11.7) Neut % (Auto) 83.5 % H % (39.3-74.2) Lymph % (Auto) 9.2 % L % (15.0-45.0) Ballard % (Auto) 5.4 % % (4.5-13.0) Eos % (Auto) 0.8 % % (0.6-7.6) Baso % (Auto) 0.6 % % (0.3-1.7) Nucleat RBC Rel Count 0.0 % % (0.0-0.2) Absolute Neuts (auto) 6.90 10^3/uL H 10^3/uL (1.70-6.50) Absolute Lymphs (auto) 0.76 10^3/uL L 10^3/uL (1.00-3.00) Absolute Monos (auto) 0.45 10^3/uL 10^3/uL (0.30-0.80) Absolute Eos (auto) 0.07 10^3/uL 10^3/uL (0.03-0.40) Absolute Basos (auto) 0.05 10^3/uL 10^3/uL (0.02-0.10) Absolute Nucleated RBC 0.00 10^3/uL 10^3/uL (0-0.01) Immature Gran % 0.5 % % (0.0-1.1) Immature Gran # 0.04 10^3/uL 10^3/uL (0.00-0.10) PT 14.9 SEC SEC (12.0-15.0) INR 1.15 (0.83-1.16) APTT 33.6 SEC SEC (23.0-38.0) POC Sodium Sodium POC Potassium Potassium POC Chloride Chloride Carbon Dioxide Anion Gap POC BUN BUN Creatinine POC Creatinine Estimated GFR Glucose POC Glucose 244 mg/dL H mg/dL (70-100) Calcium POC Troponin I Point of Care Test Results: Chemistry 11/26/17 11/26/17 11/26/17 15:01 15:00 14:57 POC Sodium 139 mEq/L mEq/L (135-145) POC Potassium 4.3 mEq/L mEq/L (3.3-5.0) POC Chloride TNP POC BUN 45 mg/dL H mg/dL (7-23) POC Creatinine 1.2 mg/dL mg/dL (0.7-1.3) POC Glucose 233 mg/dL H mg/dL 244 mg/dL H mg/dL (70-100) (70-100) POC Troponin I 0.01 ng/mL ng/mL (0.00-0.08) ISTAT H&H 11/26/17 15:01 POC Hgb 17.7 gm/dL H gm/dL (13.7-17.5) POC Hct 52 % H % (40-51) Departure - Departure Disposition: [facility] Inpatient Acute Clinical Impression: Acute ischemic stroke Condition: Fair Referrals: Elsa Carias MD [Primary Care Provider] - As per Instructions
--- NOTE | 2017-11-26 15:11 | CPEKG ---
Heart Rate: 75 RR Interval: 800 P-R Interval: 238 QRSD Interval: 90 QT Interval: 424 QTC Interval: 474 P Billings: 0 QRS Billings: 31 T Wave Billings: 15 EKG Severity - ABNORMAL ECG - EKG Impression: ATRIAL-PACED COMPLEXES EKG Impression: VENTRICULAR PREMATURE COMPLEX EKG Impression: FIRST DEGREE AV BLOCK EKG Impression: LOW VOLTAGE IN FRONTAL LEADS Electronically Signed By: Kevin Orellana 26-Nov-2017 15:46:55
[2017-11-26 15:15] LABS: PLATELET COUNT 648 10^3/uL (150-400)
[2017-11-26 15:28] LABS: INR 1.15 (0.83-1.16); PROTIME(PATIENT) 14.9 SEC (12.0-15.0)
--- NOTE | 2017-11-26 15:32 | PDCONSULT ---
[facility] Note: [place] [facility] Note Demographics Consult Type: 6-24 hour Stroke First Name: Osmany Last Name: Salbador Date of : 1935 Age: 82 Gender: Male Referring Provider: Dr Orellana Time of initial page ([place] ): 11/26/2017 15:09 Time of return call ([place] ): 11/26/2017 15:11 Time Ready to Initiate Telemed Consult ([place] Time): 11/26/2017 15:12 HPI Additional History (Free Text): in your old man history of renal transplant on Eliquis. Last evening he developed ataxia in difficulty holding onto his walker with his left arm. He was able to get into the car lay down last night and when he woke up this morning the symptoms were still present. He's been trying to manage the symptoms today but presents to the emergency department this afternoon . Stroke alert was activated for advice and assessment. CT scan is known to be negative for acute stroke at this time [facility] Past Medical History: Hyperlipidemia, Hypertension Past Surgical History: renal transplant Medications: on antihypertensive, CellCept, cyclosporin, prednisone, eliquis Exam Mental Status: awake, follows commands Language: no aphasia, dysarthria Cranial Nerves: extra ocular movements intact, no facial droop, normal facial sensation, visually impaired at baseline. Motor: L upper extremity weakness, L lower extremity weakness Sensory: normal sensation Cerebellar: L finger nose ataxia NIHSS Time (): 11/26/2017 15:14 LOC 1a: 0 = Alert; keenly responsive LOC 1b: 0 = Answers both questions correctly LOC Commands: 0 = Performs both tasks correctly Best Gaze: 0 = Normal Visual: 0 = No visual loss Facial Palsy: 0 = Normal symmetrical movements Motor Arm L: 2 = Some effort against gravity; limb cannot get to or maintain ( if cued) 90 (or 45) degrees, drifts down to bed, but has some effort against gravity Motor Arm R: 0 = No drift; limb holds 90 (or 45) degrees for full 10 seconds Motor Leg L: 1 = Drift; leg falls by the end of the 5-second period but does not hit bed Motor Leg R: 0 = No drift; leg holds 30-degree position for full 5 seconds Limb Ataxia: 1 = Present in one limb Sensory: 0 = Normal; no sensory loss Best Language: 0 = No aphasia; normal Dysarthria: 1 = Oocq-ps-tnwpxqgt dysarthria; patient slurs at least some words Extinction + Inattention: 0 = No abnormality NIHSS: [address]: no bleed Assessment: Acute Ischemic Stroke, left hemiparesis, ataxia of arm - suspect subcortical/lacunar type stroke. He is anticoagulated and outside treatment window. LVO unlikely based on syndrome - would not jeopardize his kidney with CTA for this indication. Plan Lytic/Intervention: NOT IV or IA candidate Labs: HgbA1c, Lipid Panel Imaging: US Carotid Diagnostic test: echocardiogram without bubble Therapy/Eval: PT/OT, Speech/Swallow therapy consult Other: telemetry monitoring, I have discussed my recommendations with the referring provider Additional Recommendations: Repeat CT tomorrow for comparison. (no MRI due to pacemaker) Disposition: admit [facility] Telemedicine: Interactive 2 way audio and visual telecommunication technology was utilized during this visit. Provider Location: [place]
[2017-11-26] MEDS ORDERED: ACETAMINOPHEN 325 MG TAB PO PRN (15:45)
[2017-11-26] MEDS ORDERED: ONDANSETRON 4 MG/2 ML VIAL IVP PRN (15:45)
[2017-11-26] MEDS ORDERED: HYDROCODONE/APAP 5/325 TAB PO PRN (15:45)
[2017-11-26] MEDS ORDERED: ONDANSETRON DISINTEGRATING 4 MG TAB PO PRN (15:45)
[2017-11-26] MEDS ORDERED: ACETAMINOPHEN 650 MG SUPP PR PRN (17:16)
[2017-11-26] MEDS ORDERED: NS 1,000 ML IV SCH (17:30)
[2017-11-26] MEDS ORDERED: D50W 25 GM/50 ML SYR IVP PRN (17:49)
[2017-11-26] MEDS ORDERED: LABETALOL HCL 5 MG/ML 20 ML MDV IVP PRN (17:50)
[2017-11-26] MEDS: INSULIN REGULAR HUMAN 100 UNIT/ML UNIT SC SCH (18:42)
[2017-11-26] MEDS: CARVEDILOL 3.125 MG TAB PO SCH (18:43)
[2017-11-26] MEDS: URSODIOL 300 MG CAP PO SCH (20:43)
[2017-11-26] MEDS: MYCOPHENOLATE MOFETIL 250 MG CAP PO SCH (20:43)
[2017-11-26] MEDS: APIXABAN 5 MG TAB PO SCH (20:43)
[2017-11-26] MEDS: CYCLOSPORINE MODIFIED 25 MG PO SCH (20:43)
--- NOTE | 2017-11-26 23:46 | GHP ---
[f rep st] HISTORY AND PHYSICAL DATE OF ADMISSION: 11/26/2017 CHIEF COMPLAINT: Left-sided facial droop and numbness, as well as left arm numbness and weakness. HISTORY OF PRESENT ILLNESS: The patient is a pleasant 82-year-old gentleman with a past medical hist ory of atrial fibrillation on chronic anticoagulation, as well as hypertension, diabetes mellitus typ e 1, who developed symptoms around 4 p.m. the evening prior to coming to the hospital. He states he was leaving a restaurant with his family when he started to feel a bit lightheadedness and then when getting to the car, he felt numbness of his left arm and noted difficulty in using it. He also state s that he had some numbness of the left face. When he returned home after eating, he laid down to ke a nap and then went to bed for the evening time. Upon awakening this morning, he noted persistent numbness and weakness of the left upper extremity, as well as numbness of his face. He also adds th at he noted some drooling of the left corner of his lip when trying to drink liquids. His family sta cameron they did not notice any facial asymmetry or significant changes to his vocalization. The patient states today he is not having any left lower extremity symptoms other than maybe some mild numbness of the left thigh. The patient was seen in the emergency room and had a CT scan of his head. This d id not show any acute changes. Dr. Sotomayor with [facility] was consulted and it was clinically suspected that he may have a right-sided lacunar infarction. MRI was contraindicated secondary to hi s pacemaker. He was recommended to avoid contrast as well as the patient is status post renal transp lant from 1998. The patient is being admitted for further evaluation, treatment, and therapies due t o his suspected stroke. PAST MEDICAL HISTORY: 1. Atrial fibrillation, status post pacemaker placement. 2. Hypertension. 3. End-stage renal disease, status post renal transplant in 1998. 4. Diabetes mellitus type 1 with a recent hemoglobin A1c of 8.4% obtained earlier this month. 5. BPH. PAST SURGICAL HISTORY: 1. Renal transplant. 2. Pacemaker placement. MEDICATIONS: 1. Albuterol inhaler as needed. 2. Uroxatral 10 mg daily. 3. Allopurinol 100 mg daily. 4. Eliquis 5 mg twice a day. 5. Atorvastatin 40 mg daily. 6. Coreg 3.125 mg twice a day. 7. Vitamin D supplementation. 8. Cyclosporine 25 mg twice a day. 9. Finasteride 5 mg daily. 10. Hydralazine 10 mg nightly. 11. NovoLog sliding scale prior to meals. 12. Lantus 8-10 units daily. 13. Latanoprost eye drops. 14. Lisinopril 20 mg nightly. 15. Midodrine 5 mg daily as needed for systolic blood pressure less than 110. 16. Mycophenolate 500 mg twice a day. 17. Protonix 40 mg daily. 18. Prednisone 5 mg daily. 19. Ursodiol 300 mg twice a day. ALLERGIES: No known drug allergies. FAMILY HISTORY: Mother and father are both . No cause of , they apparently at adv anced age. SOCIAL HISTORY: The patient is currently and lives with his . He is retired from the [employer]. He has 2 daughters who are present at the bedside today. He is a nonsmoker. No significant alcohol use. REVIEW OF SYSTEMS: CONSTITUTIONAL: No complaints of any recent fevers or chills. ENT: No recent u pper respiratory illnesses. CARDIOVASCULAR: No complaints of chest pains, palpitations, or syncopal episodes. RESPIRATORY: No complaints of shortness of breath or productive cough. GI: No nausea, vomiting, diarrhea, or constipation. : No reports of any difficulty with urination. NEUROLOGIC: No complaints of any focal headaches otherwise. Left-sided symptoms as described in the HPI. HEMAT OLOGIC: No history of any deep vein thrombosis or pulmonary embolism. PSYCHIATRIC: No history of a nxiety or depression. ENDOCRINE: No polyuria or heat intolerance. SKIN: No new skin rashes. MUSC ULOSKELETAL: No focal joint pains. PHYSICAL EXAM: VITAL SIGNS: Temperature is afebrile. Blood pressure 131/71, heart rate 72, respira tions 18, saturating 99% on room air. GENERAL: The patient is hard of hearing, but is able to hear m e when I am close to his face. He is able to provide good history. Awake, alert and oriented. HEEN T: Extraocular movements intact. No scleral icterus is noted. NECK: Supple. No thyroid enlargeme nt appreciated. CHEST: Clear with normal respiratory effort. HEART: Regular, suspect paced rhythm . No murmurs. Soft heart sounds. ABDOMEN: Soft, nontender, nondistended. : No Case catheter in place. EXTREMITIES: No significant pitting edema. NEUROLOGIC: No facial asymmetry is appreciat ed. Grossly cranial nerves 2-12 appear intact. Speech also seems intact and according to family at baseline. He has decreased sensation with soft touch on the left face from the left temporal area to the left chin and jaw line. He also has numbness throughout the left arm as compared to the right. His strength, as well, is diminished on the left as compared to the right. Hand grasp is rated at 4 /5 strength compared to 5/5 on the right. Lower extremity strength is equal bilaterally. 2+ patella r reflexes bilaterally. LABORATORIES: White blood cell count is 8, hemoglobin 16, platelets 648. Sodium 136, potassium 4.6, chloride 104, bicarb 22, BUN 38, creatinine 1.1, glucose of 237. ECG shows atrial paced rhythm. CT scan of the head: No acute ischemia. No acute changes noted. Atrophy was seen. ASSESSMENT/PLAN: 1. Cerebrovascular accident. Suspected acute right-sided likely lacunar infarct. Dr. Sotomayor with [facility] was consulted in the emergency room and no intervention was indicated based on timing of presentation. I have also placed a consult for Neurology tomorrow for further recommendations. Otherwise, we will obtain a carotid ultrasound as it sounds like this was many years since he had a l ast carotid ultrasound. I have ordered an echocardiogram with bubble study. He had an echo without bubble study in August of this year. The recommendation also was for CT scan of the head in the morning to reassess for any new stroke development. This will also be helpful to assess for any hemorrhagic conversion as he is on Eliquis. Otherwise, we will recommend PT, OT, and speech consults for tomorr ow. We will keep him n.p.o. overnight. Lipid panel as well ordered for tomorrow. We did briefly di scuss potentially need for short-term rehab placement depending on how he does with therapies. Famil y seem very supportive either way. 2. Atrial fibrillation. Continue with Coreg for rate control. Patient is anticoagulated with Eliqu is. 3. Hypertension. We will hold antihypertensive therapy except the Coreg which we are using for rate control overnight. I have written an order for labetalol should his systolic blood pressure rise ab ove 220. Tomorrow will be around a 48 hour isabel from his stroke so likely we can be more aggressive with his blood pressures if indicated at that time. His family states he has rather labile blood pre ssures and at times requiring midodrine to raise his systolic blood pressure. 4. End-stage renal disease, status post renal transplant. Creatinine seems to be at its baseline. Continue with current prednisone, mycophenolate, and cyclosporine. 5. Diabetes mellitus type 1. I have continued with his Lantus at 5 units nightly if he is n.p.o. fo r now. He typically requires 8-10 units. We will also continue with a q.6 hour regular insulin slid ing scale. 6. BPH. Continue finasteride. 7. Deep venous thrombosis prophylaxis. The patient is anticoagulated. 8. Disposition: The patient is full code status. I have placed him in observation overnight esthela patel further recommendations. /[id number]/MODL
[2017-11-27] MEDS: INSULIN REGULAR HUMAN 100 UNIT/ML UNIT SC SCH ×4 (00:42→18:22)
[2017-11-27 05:38] LABS: PLATELET COUNT 588 10^3/uL (150-400)
--- NOTE | 2017-11-27 08:32 | GCON ---
[f rep st] CONSULTATION NEUROLOGIC CONSULTATION REFERRING PHYSICIAN: Jeferson Small MD HISTORY: The patient is an 82-year-old gentleman who I am asked to see in neurologic consultation re garding a chief complaint of left-sided discoordination and numbness. The history is obtained from [facility] of the medical records as well as direct discussion with the patient. Two evenings ago, he had left a restaurant and experienced what he said was an acute feeling of mild dizziness and he soon be came aware that there was a little bit of numbness in his left face and arm. He believes he might hartman ve had similar symptoms in the past and his perception was that this might just go away. However, it did not and he noticed more problems the next day with abnormal sensation and coordination of the le ft arm and left facial numbness. He was denying headache, chest pain, palpitations, or shortness of breath. He did not feel symptoms were prominent in the left leg. There were no exacerbating or obvi ous alleviating factors for this. It remained relatively mild but had definitely progressed over 24 hours to the point that he knew he ought to go to the hospital for evaluation, which he did. He has subsequently been evaluated in the emergency department and had [facility] consult via teleneurology. During this process, he was documented to have some left-sided deficits and head CT showed no evidenc e of an acute infarction. He was admitted and was not a candidate for other interventional therapies or medical changes because he is already on Eliquis for history of atrial fibrillation and would not have been safe to consider contrast because of kidney transplant. The general feeling was this was probably medical billing representative of a small vessel type event and he was to be monitored in the hospital with close observation. Since admission, he feels that he is about the same. Perhaps, his left arm is a little less numb he says. However, he notes rather profound discoordination of that arm. His mind has been clear as bes t he can tell and still denies any headaches. A further 10-point review of systems is completed and unremarkable except for that noted above. 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 His kidney transplant was around 19 years ago. He has a pacemaker for his atrial fibrillation. Prior to admission, he was on Eliquis and other medications as noted in the history and physical. Th is also includes statin therapy with atorvastatin. SOCIAL HISTORY: He is independent living at the with his . He has children. No smok ing. Rare alcohol in the past. ALLERGIES: No drug allergies. FAMILY HISTORY: Unremarkable. CURRENT MEDICATIONS: The patient's current medications are Tylenol as needed, Eliquis, allopurinol, carvedilol, cyclosporine, Proscar, Theresa as needed, insulin. Eliquis is his current blood thinner for secondary stroke prophylaxis. He remains on the atorvastati n 40 mg daily. He is briefly n.p.o. because of the stroke but will be cleared shortly for that. PHYSICAL EXAM: The blood pressure is 177/77 and has been ranging from 150 to 200 systolic over the l ast 12 hours. Temperature is 36.4, pulse of 54, respirations 17. GENERAL: He is well developed, in no acute distress. EYES: Clear. NECK: Supple with no bruits or masses. CARDIAC EXAM: Regular r ate and rhythm with no murmur. EXTREMITIES: Have no cyanosis or edema. I cannot adequately view th e fundi because of very small pupils. They are about a mm with subtle reactivity. He is legally bli nd and visual field testing is unreliable otherwise, but he can just slightly see my finger. Extraoc ular movements do not show any unique abnormalities other than a little bit of trouble tracking from his loss of vision. The facial sensation is diminished in the left lower face partially. The facial movement seems to be symmetric without definite weakness on movement of the left side of the face. His palate elevates symmetrically. Tongue protrudes midline. No weakness of head turning or shoulde r shrug. Hearing is preserved. He is oriented to person, place, and time. He has good recent and r emote memory as well as normal attention span and concentration and general language skills. Fund of knowledge is normal. The motor examination reveals drift in the left upper extremity and discoordin ation of the left upper extremity with some mild ataxic movements and relative decreased sensation in that left arm compared to the right. Otherwise, sensation is preserved on the right side of the bod y and the left lower extremity. No other areas of ataxic movement. Reflexes are hypoactive in the l ower extremities. No Babinski signs. Right side also hypoactive in general. DATA: The laboratory studies were reviewed and platelet count is 588,000. INR is normal. Chemistry shows glucose varying from 200 to 100. LDL cholesterol is 100. I reviewed the head CT which shows changes consistent with small-vessel ischemic change and generalized atrophy. The patient's NIH Stroke Scale is 6, losing 3 points for being legally blind which is not a new pheno loretta. IMPRESSION: The patient has a history and clinical findings suspicious for a small vessel, lacunar-t ype infarction in the right subcortical white matter with deficits affecting the left face and arm pr edominantly. He has multiple risk factors for small vessel disease. He is already fully anticoagula chidi with Eliquis. We should continue that indefinitely. He is already on statin therapy which shoul d continue and the blood pressure medication is correctly being partially held until he stabilizes, b ut then can resume his regular blood pressure regimen over the next several days. Needs speech, occu pational, and physical therapy. Depending on his ultimate outcome of those evaluations, disposition can be determined for inpatient or outpatient care and whatever further needs might arise. Carotid u ltrasound results are currently pending. Echocardiogram results are pending. Please contact me with any additional questions. /[id number]/MODL
[2017-11-27] MEDS ORDERED: INSULIN GLARGINE 100 UNITS/ML UNIT SC SCH (09:00)
[2017-11-27] MEDS: LATANOPROST 0.005% 2.5 ML OPHT DROPS EACHEYE SCH (09:58)
[2017-11-27] MEDS: CARVEDILOL 3.125 MG TAB PO SCH ×2 (10:08→18:23)
[2017-11-27] MEDS: APIXABAN 5 MG TAB PO SCH ×2 (10:14→20:19)
[2017-11-27] MEDS: ALLOPURINOL 100 MG TAB PO SCH (10:14)
[2017-11-27] MEDS: CYCLOSPORINE MODIFIED 25 MG PO SCH ×2 (10:15→20:19)
[2017-11-27] MEDS: ATORVASTATIN CALCIUM 40 MG TAB PO SCH (10:15)
[2017-11-27] MEDS: FINASTERIDE 5 MG TAB PO SCH (10:16)
[2017-11-27] MEDS: INSULIN GLARGINE 100 UNITS/ML UNIT SC SCH (10:16)
[2017-11-27] MEDS: PANTOPRAZOLE SODIUM 40 MG TAB PO SCH (10:17)
[2017-11-27] MEDS: MYCOPHENOLATE MOFETIL 250 MG CAP PO SCH ×2 (10:17→20:18)
[2017-11-27] MEDS: URSODIOL 300 MG CAP PO SCH ×2 (10:18→20:19)
[2017-11-27] MEDS: predniSONE 5 MG TAB PO SCH (10:18)
[2017-11-27] MEDS: ALFUZOSIN HCL 10 MG PO SCH (10:18)
--- NOTE | 2017-11-27 13:38 | ECHO ---
[email or web address] [address] [address] Main: [phone] Fax: Transthoracic Echocardiogram Name: ROSALINE LEWIS MR#: [id number] Study Date: 11/27/2017 Study Time: 11:29 AM Date of : 1935 Age: 82 year(s) Height: 170.2 cm (67 in.) Weight: 61.69 kg (136 lb.) BSA: 1.72 m2 Gender: Male Examination: Echo with Agitated Saline Indication: Ischemic stroke Image Quality: Adequate Contrast: I.V. dose of agitated saline Requested by: Jeferson Small BP: 163 mmHg/90 mmHg Heart Rate: Rhythm: Indication: Ischemic stroke Procedure Staff Manager Transfusion: Noemi Gonzalez [facility] Reading Physician: Aislinn Wolfe MD Requesting Provider: Conclusions: Normal size left ventricle. Basal inferior and basal inferoseptal hypokinesis. Normal size right ventricle. Normal RV function. There is a pacemaker lead noted in the right ventricle. The left atrium is moderately to severely dilated. An agitated saline study was performed and was negative for intracardiac shunting. The right atrium is borderline dilated. Mild to moderate mitral regurgitation. Mild tricuspid regurgitation is present. Right ventricular systolic pressure measures 44mmHg. The pulmonary artery pressure is mildly increased. Compared with 09/11/2017 estimated PA pressures are higher. Degree of mitral regurgitation is slightly worse. No obvious cardiac source of embolism seen on this study. If there remains a high clinical suspicion for cardioembolic source for stroke consider DALE Measurements: Chambers Valvular Assessment AV/MV Valvular Assessment TV/PV Normal Normal Normal Name Value Range Name Value Range Name Value Range Ao Trinh (MM): 3.8 cm (2.2 cm-3.7 AV Vmax: 1.64 m/s (1 m/s-1.7 TR Vmax: 3.14 mm/s ( - ) cm) m/s) TR PGmax: 39 mmHg ( - ) IVSd (2D): 1.4 cm (0.6 cm-1.1 AV maxP mmHg ( - ) syst. PAP: 44 mmHg ( - ) cm) AV meanP mmHg ( - ) PV Vmax: 1.03 m/s (0.6 m/s-0.9 LVDd (2D): 5.2 cm (4.2 cm-5.9 LVOT Vmax: 0.72 m/s (0.7 m/s-1.1 m/s) cm) m/s) PV PGmax: 4 mmHg ( - ) LVDs (2D): 3.2 cm (2.1 cm-4 FAVIOLA (Vmax): 1.4 cm2 ( - ) cm) FAVIOLA (VTI): 1.4 cm ( - ) LVPWd (2D): 1.0 cm (0.6 cm-1 MV E Vmax: 1.03 m/s ( - ) cm) MV A Vmax: 0.32 m/s ( - ) Patient: ROSALINE LEWIS Study Date: 11/27/2017 Page 1 of 2 11:29 AM LVOTd 2.0 cm 2.0 cm mm MV E/A: 3.22 ( - ) LVEF (BP): 59 % (>=55 %) MV meanP mmHg ( - ) RVDd(2D): 3.1 cm (1.9 cm-3.8 MVA (Vmax): 1.6 m/s ( - ) cmmm) Continued Measurements: Chambers Valvular Assessment AV/MV Valvular Assessment TV/PV Name Value Name Value Name Value LADs Lon.0 cm MV DecTime: 208 m/s CVP (est.): 5 mmHg LA Area: 25.2 cm2 MV E' Septal: 0.04 m/s LA Volume: 82 ml MV E/E' Septal: 25.00 LA Volume Index: 47.7 ml/m2 MV E/E' Lateral: 12.90 RA Area: 18.1 cm2 MV VTI: 36.10 cm Additional Vessels Name Value Ao Ascendin.4 cm Findings: Left Ventricle: Normal size left ventricle. Asymmetrical septal LV hypertrophy. Normal global systolic LV function. EF is 59 %. Basal inferior and basal inferoseptal hypokinesis. Right Ventricle: Normal size right ventricle. Normal RV function. There is a pacemaker lead noted in the right ventricle. Left Atrium: The left atrium is moderately to severely dilated. An agitated saline study was performed and was negative for intracardiac shunting. Right Atrium: The right atrium is borderline dilated. There is a pacemaker lead noted in the right atrium. Mitral Valve: There is moderate thickening of the mitral valve leaflets. Moderate mitral annular calcification. No mitral stenosis is present. Mild to moderate mitral regurgitation. Aortic Valve: The aortic valve is tri-leaflet. Moderate aortic cusp calcification is present. There is no aortic valve regurgitation. No aortic valve stenosis is present. Tricuspid Valve: The tricuspid valve appears normal. Mild tricuspid regurgitation is present. Right ventricular systolic pressure measures 44mmHg. The pulmonary artery pressure is mildly increased. Pulmonic Valve: Pulmonary valve not well visualized. There is no pulmonic regurgitation seen. Aorta: Normal size aortic root measuring 3.8 cm. Normal size ascending aorta measuring 3.4 cm. IVC: The IVC is not visualized. Pericardium: No pericardial effusion. (No Signature Object) Patient: ROSALINE LEWIS Study Date: 11/27/2017 Page 2 of 2 11:29 AM [id number]
--- NOTE | 2017-11-27 14:51 | HOSPPROG ---
Hospitalist Progress Note Assessment/Plan: 82y male with c/o weakness and dizziness. First encounter, chart reviewed. D/W Dr Spencer. #Acute lucunar CVA -cont PT/OT -already on Eliquis -on a statin -BP stable for now -ECHO and carotid US today -D/W Dr Spencer #Afib -rate controlled -Eliquis #HTN -monitor -consider more aggressive therapy tomorrow if elevated #Legally blind -at baseline #ESRD -status post transplant -at baseline -cont meds #DM1 -lantus -SSI #Dispo -unclear -still having weakness -PT/OT recs -change to inpt given acute status and need for further workup -may needs SNF Subjective: Feeling ok. No pain currently. Still some weakness. Objective: Vital Signs Temp Pulse Resp BP Pulse Ox 36.0 C 57 L 7 L 184/81 H 98 11/27/17 12:38 11/27/17 12:38 11/27/17 12:38 11/27/17 12:38 11/27/17 12:38 Laboratory Results 11/27/17 04:45 11/27/17 04:45 11/26/17 11/27/17 11/28/17 05:59 05:59 05:59 Intake Total 0 Output Total 100 110 Balance -100 -110 PT 14.9 SEC (12.0-15.0) 11/26/17 15:00 INR 1.15 (0.83-1.16) 11/26/17 15:00 - Physical Exam Constitutional: no apparent distress, appears nourished, chronically ill appearing Eyes: anicteric sclera, other (blind) Ears, Nose, Mouth, Throat: moist mucous membranes, hearing normal, ears appear normal Cardiovascular: irregularly irregular, No JVD, No edema Respiratory: no respiratory distress, no rales or rhonchi, reduced air movement Gastrointestinal: normoactive bowel sounds, No tenderness, No ascites Skin: warm, normal color, No mottled Musculoskeletal: no joint effusions, pain with ROM, generalized weakness Psychiatric: interacting appropriately, not anxious, not encephalopathic, poor memory ICD10 Worksheet Patient Problems: Problems Problem Status Onset Dyspnea Acute Elevated troponin Acute Thrombocytosis Acute Prerenal azotemia Acute Acute ischemic stroke Acute
--- NOTE | 2017-11-27 16:46 | PDMN ---
Medical Necessity Medical necessity: Change to IP, as of 11/27/17, per [employer]; los >2 mn for ongoing management of acute lucunar CVA w/htn, dizziness & weakness; requiring further workup/monitoring, IVFs, med management & therapies; comorbid advanced age, AFIB on AC, ESRD s/p transplant, legally blind & diabetes
--- NOTE | 2017-11-27 17:16 | ASMTCMCOM ---
CM Note CM Note Notes: Pt admitted to hospital after feeling some numbness on left side. Pt lives with his at the [facility], PT/OT are recommending he go to [facility]. Michelle is waiting for more therapy notes. DC Plan: TBD Date Signed: 11/27/2017 05:15 PM Electronically Signed By:Amber Emery RN
[2017-11-28] MEDS: INSULIN REGULAR HUMAN 100 UNIT/ML UNIT SC SCH ×5 (01:21→20:23)
--- NOTE | 2017-11-28 07:38 | NEUROPROG ---
Assessment: 25 minutes unit time. Patient with clinical stroke and stable deficits. No new recs. Awaiting disposition NIHSS 6. Subjective: Pt reports feeling about the same with no new issues. Objective: Vital Signs Temp Pulse Resp BP Pulse Ox 36.8 C 64 12 183/97 H 97 11/28/17 04:00 11/28/17 04:00 11/28/17 04:00 11/28/17 04:00 11/28/17 04:00 11/27/17 11/28/17 11/29/17 05:59 05:59 05:59 Intake Total 750 Output Total 400 Balance 350 PT 14.9 SEC (12.0-15.0) 11/26/17 15:00 INR 1.15 (0.83-1.16) 11/26/17 15:00 Unchanged left face and arm numbness and weakness of the arm. CT head unchanged, no stroke evident Echo unremarkable Carotid US without stenosis Allergies/Adverse Reactions: No Known Allergies Allergy (Verified 11/26/17 15:02)
[2017-11-28] MEDS: ALFUZOSIN HCL 10 MG PO SCH (10:22)
[2017-11-28] MEDS: APIXABAN 5 MG TAB PO SCH ×2 (10:23→20:23)
[2017-11-28] MEDS: ALLOPURINOL 100 MG TAB PO SCH (10:23)
[2017-11-28] MEDS: CYCLOSPORINE MODIFIED 25 MG PO SCH ×2 (10:24→20:23)
[2017-11-28] MEDS: ATORVASTATIN CALCIUM 40 MG TAB PO SCH (10:24)
[2017-11-28] MEDS: INSULIN GLARGINE 100 UNITS/ML UNIT SC SCH (10:25)
[2017-11-28] MEDS: FINASTERIDE 5 MG TAB PO SCH (10:25)
[2017-11-28] MEDS: LATANOPROST 0.005% 2.5 ML OPHT DROPS EACHEYE SCH (10:26)
[2017-11-28] MEDS: MYCOPHENOLATE MOFETIL 250 MG CAP PO SCH ×2 (10:26→20:23)
[2017-11-28] MEDS: URSODIOL 300 MG CAP PO SCH ×2 (10:27→20:23)
[2017-11-28] MEDS: PANTOPRAZOLE SODIUM 40 MG TAB PO SCH (10:27)
[2017-11-28] MEDS: predniSONE 5 MG TAB PO SCH (10:27)
[2017-11-28] MEDS: CARVEDILOL 3.125 MG TAB PO SCH ×2 (10:46→18:25)
--- NOTE | 2017-11-28 11:17 | HOSPPROG ---
Hospitalist Progress Note Assessment/Plan: [facility] Patient Name: ROSALINE LEWIS Rpt#: [id number] Unit Number: [id number] Attending/ER Physician: Jeferson Small MD Patient Type: ADM IN Adm Date/Source: 11/27/17 EMR Discharge Date: Primary Carrier: MEDICARE OUTPATIENT Patient is an 82-year-old male who presented the emergency room with left facial droop and numbness as well as left arm numbness and weakness. He has a past medical history of atrial fibrillation on chronic and anticoagulation as well as hypertension, diabetes type 1. He had a CT scan of his head that did not show any acute changes. Today is my 1st encounter with the patient. Chart reviewed. Of note the patient is status post a renal transplant so IV contrast was avoided PAST MEDICAL HISTORY: 1. Atrial fibrillation, status post pacemaker placement. 2. Hypertension. 3. End-stage renal disease, status post renal transplant in 1998. 4. Diabetes mellitus type 1 with a recent hemoglobin A1c of 8.4% obtained earlier this month. 5. BPH. PAST SURGICAL HISTORY: 1. Renal transplant. 2. Pacemaker placement. MEDICATIONS: 1. Albuterol inhaler as needed. 2. Uroxatral 10 mg daily. 3. Allopurinol 100 mg daily. 4. Eliquis 5 mg twice a day. 5. Atorvastatin 40 mg daily. 6. Coreg 3.125 mg twice a day. 7. Vitamin D supplementation. 8. Cyclosporine 25 mg twice a day. ROSALINE LEWIS 11/27/17 : 1935 82 F344-1 MR: [id number] ATT DR: Jeferson Small MD General History and Physical Page 1 of 3 Objective: Vital Signs Temp Pulse Resp BP Pulse Ox 36.6 C 68 18 126/76 H 98 11/28/17 08:49 11/28/17 10:46 11/28/17 08:49 11/28/17 10:46 11/28/17 08:49 11/27/17 11/28/17 11/29/17 05:59 05:59 05:59 Intake Total 750 250 Output Total 400 125 Balance 350 125 PT 14.9 SEC (12.0-15.0) 11/26/17 15:00 INR 1.15 (0.83-1.16) 11/26/17 15:00 ICD10 Worksheet Patient Problems: Problems Problem Status Onset Acute ischemic stroke Acute Dyspnea Acute Elevated troponin Acute Prerenal azotemia Acute Thrombocytosis Acute
--- NOTE | 2017-11-28 11:21 | HOSPPROG ---
Hospitalist Progress Note Assessment/Plan: [facility] Patient Name: ROSALINE LEWIS Rpt#: [id number] Unit Number: [id number] Attending/ER Physician: Jeferson Small MD Patient Type: ADM IN Adm Date/Source: 11/27/17 EMR Discharge Date: Primary Carrier: MEDICARE OUTPATIENT Patient is an 82-year-old male who presented the emergency room with left facial droop and numbness as well as left arm numbness and weakness. He has a past medical history of atrial fibrillation on chronic anticoagulation as well as hypertension, diabetes type 1. He had a CT scan of his head that did not show any acute changes. Today is my 1st encounter with the patient. Chart reviewed. Of note the patient is status post a renal transplant so IV contrast was avoided * CVA, lacunar type infarction -he is fully anticoagulated on Eliquis -he is already on statin therapy -his echocardiogram shows that both his atriums are dilated with the left atrium being severely dilated -carotid ultrasound does not show significant stenosis -reviewed the satellite project site monitor he is in sinus rhythm with frequent PVCs * atrial fibrillation -status post pacemaker placement * diabetes type 1 -most recent hemoglobin A1c is 8.4 earlier this month -glucoses are high today * renal transplant -resumed prednisone and cyclosporin * gout -allopurinol * hematuria *Plan: therapies are recommending IP rehab, he wants to further discuss w his Subjective: Terrence is tired, says he didn't sleep last night. Objective: Vital Signs Temp Pulse Resp BP Pulse Ox 36.6 C 68 18 126/76 H 98 11/28/17 08:49 11/28/17 10:46 11/28/17 08:49 11/28/17 10:46 11/28/17 08:49 11/27/17 11/28/17 11/29/17 05:59 05:59 05:59 Intake Total 750 250 Output Total 400 125 Balance 350 125 PT 14.9 SEC (12.0-15.0) 11/26/17 15:00 INR 1.15 (0.83-1.16) 11/26/17 15:00 - Physical Exam Constitutional: appears nourished, not in pain Ears, Nose, Mouth, Throat: hearing normal Cardiovascular: regular rate and rhythym Respiratory: no respiratory distress Gastrointestinal: normoactive bowel sounds Skin: warm Neurologic: AAOx3, weakness (slight weakness on the left upper extremity, strong pull up in toes), No pronator drift, No facial droop Psychiatric: interacting appropriately, not encephalopathic, thought process linear ICD10 Worksheet Patient Problems: Problems Problem Status Onset Acute ischemic stroke Acute Dyspnea Acute Elevated troponin Acute Prerenal azotemia Acute Thrombocytosis Acute
--- NOTE | 2017-11-28 15:12 | ASMTCMCOM ---
CM Note CM Note Notes: [facility] inpatient rehab assessing pt. Spoke with pt, Miranda and two dghtrs about [facility] inpatient rehab. Miranda recently was at [facility] inpatient rehab so family states they are familiar with the program. Pt wants to discuss dispo options with friends/family and let CM know if he is interested in [facility] ipr in the morning. Cm will follow. Date Signed: 11/28/2017 02:29 PM Electronically Signed By:MICAELA Shaver
[2017-11-28] MEDS ORDERED: D50W 25 GM/50 ML SYR IVP PRN (15:22)
[2017-11-29] MEDS: INSULIN GLARGINE 100 UNITS/ML UNIT SC SCH (08:41)
[2017-11-29] MEDS: ATORVASTATIN CALCIUM 40 MG TAB PO SCH (08:42)
[2017-11-29] MEDS: URSODIOL 300 MG CAP PO SCH ×2 (08:42→20:48)
[2017-11-29] MEDS: APIXABAN 5 MG TAB PO SCH ×2 (08:42→20:46)
[2017-11-29] MEDS: predniSONE 5 MG TAB PO SCH (08:42)
[2017-11-29] MEDS: CARVEDILOL 3.125 MG TAB PO SCH ×2 (08:42→18:13)
[2017-11-29] MEDS: FINASTERIDE 5 MG TAB PO SCH (08:42)
[2017-11-29] MEDS: ALLOPURINOL 100 MG TAB PO SCH (08:42)
[2017-11-29] MEDS: PANTOPRAZOLE SODIUM 40 MG TAB PO SCH (08:43)
[2017-11-29] MEDS: MYCOPHENOLATE MOFETIL 250 MG CAP PO SCH ×2 (08:43→20:47)
[2017-11-29] MEDS: CYCLOSPORINE MODIFIED 25 MG PO SCH ×2 (08:43→20:46)
[2017-11-29] MEDS: ALFUZOSIN HCL 10 MG PO SCH (08:44)
[2017-11-29] MEDS: INSULIN REGULAR HUMAN 100 UNIT/ML UNIT SC SCH ×4 (08:44→22:26)
[2017-11-29] MEDS: LATANOPROST 0.005% 2.5 ML OPHT DROPS EACHEYE SCH (08:44)
--- NOTE | 2017-11-29 08:45 | NEUROPROG ---
Assessment: 25 minutes unit time. He is a little better and I am fine with whatever discharge plan he agrees to. Subjective: Pt feels better. He wants home care not SNF Objective: Vital Signs Temp Pulse Resp BP Pulse Ox 36.4 C 64 19 189/95 H 100 11/29/17 07:27 11/29/17 07:27 11/29/17 07:27 11/29/17 07:27 11/29/17 07:27 11/28/17 11/29/17 11/30/17 05:59 05:59 05:59 Intake Total 750 690 450 Output Total 400 300 300 Balance 350 390 150 PT 14.9 SEC (12.0-15.0) 11/26/17 15:00 INR 1.15 (0.83-1.16) 11/26/17 15:00 No major change but more alert and articulate and not confused. Left arm weakness and dysfunction a little better Allergies/Adverse Reactions: No Known Allergies Allergy (Verified 11/26/17 15:02)
--- NOTE | 2017-11-29 12:14 | HOSPPROG ---
Hospitalist Progress Note Assessment/Plan: [facility] Patient Name: ROSALINE LEWIS Rpt#: [id number] Unit Number: [id number] Attending/ER Physician: Jeferson Small MD Patient Type: ADM IN Adm Date/Source: 11/27/17 EMR Discharge Date: Primary Carrier: MEDICARE OUTPATIENT Patient is an 82-year-old male who presented the emergency room with left facial droop and numbness as well as left arm numbness and weakness. He has a past medical history of atrial fibrillation on chronic anticoagulation as well as hypertension, diabetes type 1. He had a CT scan of his head that did not show any acute changes. Of note the patient is status post a renal transplant so IV contrast was avoided. * CVA, lacunar type infarction -he is fully anticoagulated on Eliquis -he is already on statin therapy -his echocardiogram shows that both his atriums are dilated with the left atrium being severely dilated -carotid ultrasound does not show significant stenosis -reviewed the gambling monitor he is in sinus rhythm with frequent PVCs * atrial fibrillation -status post pacemaker placement * diabetes type 1 -most recent hemoglobin A1c is 8.4 earlier this month -glucoses are high today-will increase Lantus from 5 units to 10 units *dizziness -became very dizzy today and had trouble walking -will watch him overnight -recommending to get oob slowly * renal transplant -resumed prednisone and cyclosporin * gout -allopurinol * hematuria *Plan: patient prefers to go home rather than IP rehab; he is not on all of his bp meds at this time. Will eventually need to be resumed. Will need home care PT and OT. Subjective: Terrence is feeling better this afternoon, felt dizzy this morning. Objective: Vital Signs Temp Pulse Resp BP Pulse Ox 36.7 C 65 22 H 123/72 H 98 11/29/17 11:52 11/29/17 11:52 08/01/18 11:52 11/29/17 11:52 11/29/17 11:52 11/28/17 11/29/17 11/30/17 05:59 05:59 05:59 Intake Total 750 690 690 Output Total 400 300 400 Balance 350 390 290 PT 14.9 SEC (12.0-15.0) 11/26/17 15:00 INR 1.15 (0.83-1.16) 11/26/17 15:00 - Physical Exam Constitutional: not in pain, chronically ill appearing Ears, Nose, Mouth, Throat: hearing normal Cardiovascular: regular rate and rhythym Respiratory: no respiratory distress Skin: warm Musculoskeletal: generalized weakness Neurologic: AAOx3, No facial droop Psychiatric: interacting appropriately, not anxious, not encephalopathic, thought process linear ICD10 Worksheet Patient Problems: Problems Problem Status Onset Acute ischemic stroke Acute Dyspnea Acute Elevated troponin Acute Prerenal azotemia Acute Thrombocytosis Acute
[2017-11-29] MEDS ORDERED: HYDROmorphONE/DILAUDID 1 MG/ML INJ IVP PRN (15:09)
--- NOTE | 2017-11-29 15:53 | ASMTCMCOM ---
CM Note CM Note Notes: This morning pt and family state they want home with [facility]. Pt then worked with therapy, was lightheaded and not ambulating safely, family saw this and may be reconsidering [facility] inpatient rehab. PT rec is still inpatient rehab. VM left for [facility] inpatient to please keep pt for consideration. CM to follow. Date Signed: 11/29/2017 03:53 PM Electronically Signed By:MICAELA Shaver
--- NOTE | 2017-11-30 02:46 | CPEKG ---
Heart Rate: 75 RR Interval: 800 P-R Interval: 236 QRSD Interval: 126 QT Interval: 448 QTC Interval: 501 P Freedom: 0 QRS Freedom: -67 T Wave Freedom: 92 EKG Severity - ABNORMAL ECG - EKG Impression: VENTRICULAR-PACED COMPLEXES EKG Impression: FIRST DEGREE AV BLOCK EKG Impression: NONSPECIFIC IVCD WITH LAD EKG Impression: PROBABLE LVH WITH SECONDARY REPOL ABNRM Electronically Signed By: Lavonne Banda 30-Nov-2017 10:19:46
[2017-11-30] MEDS: INSULIN REGULAR HUMAN 100 UNIT/ML UNIT SC SCH ×4 (07:44→22:17)
[2017-11-30] MEDS: MYCOPHENOLATE MOFETIL 250 MG CAP PO SCH ×2 (09:08→22:18)
[2017-11-30] MEDS: URSODIOL 300 MG CAP PO SCH ×2 (09:09→22:19)
[2017-11-30] MEDS: CYCLOSPORINE MODIFIED 25 MG PO SCH ×2 (09:09→22:18)
[2017-11-30] MEDS: ALLOPURINOL 100 MG TAB PO SCH (09:09)
[2017-11-30] MEDS: ATORVASTATIN CALCIUM 40 MG TAB PO SCH (09:09)
[2017-11-30] MEDS: APIXABAN 5 MG TAB PO SCH ×2 (09:09→22:19)
[2017-11-30] MEDS: predniSONE 5 MG TAB PO SCH (09:09)
[2017-11-30] MEDS: PANTOPRAZOLE SODIUM 40 MG TAB PO SCH (09:09)
[2017-11-30] MEDS: FINASTERIDE 5 MG TAB PO SCH (09:09)
[2017-11-30] MEDS: CARVEDILOL 3.125 MG TAB PO SCH ×2 (09:09→17:44)
[2017-11-30] MEDS: ALFUZOSIN HCL 10 MG PO SCH (09:10)
[2017-11-30] MEDS: INSULIN GLARGINE 100 UNITS/ML UNIT SC SCH (09:10)
[2017-11-30] MEDS: LATANOPROST 0.005% 2.5 ML OPHT DROPS EACHEYE SCH (09:10)
--- NOTE | 2017-11-30 11:36 | PDIAF ---
- Diagnosis Diagnosis: CVA Code Status: Full Code - Medication Management Discharge Medications: Medications to Continue on Transfer Allopurinol [Allopurinol 100 MG (*)] 100 mg PO DAILY 09/10/17 [Last Taken ] Cholecalciferol Vit D3 [Vitamin D3 (*)] 1,000 units PO DAILY 09/10/17 [Last Taken 09/10/17] Finasteride [Proscar 5 MG (*)] 5 mg PO DAILY 09/10/17 [Last Taken 09/10/17] Herbals/Supplements -Info Only 1 ea PO DAILY 09/10/17 [Last Taken Unknown] Insulin Aspart [Novolog Flexpen] 0 unit SQ AC 09/10/17 [Last Taken Unknown] Insulin Glargine,Hum.rec.anlog [Lantus Solostar] 8 - 10 units SQ DAILY 09/10/17 [Last Taken 09/10/17] Midodrine HCl 5 mg PO DAILY PRN 09/10/17 [Last Taken Unknown] Mycophenolate Mofetil [Cellcept] 500 mg PO BID 09/10/17 [Last Taken 09/10/17] Pantoprazole Sodium [Protonix 40mg (*)] 40 mg PO DAILY 09/10/17 [Last Taken ] Ursodiol [Actigall 300MG (*)] 300 mg PO BID 09/10/17 [Last Taken 09/10/17] cycloSPORINE, MODIFIED [Cyclosporine Modified] 25 mg PO BID 09/10/17 [Last Taken 09/10/17] hydrALAZINE [Apresoline 10 mg (*)] 10 mg PO HS 09/10/17 [Last Taken 09/09/17] predniSONE 5 mg PO DAILY 09/10/17 [Last Taken 09/10/17] Albuterol [Proventil Inhaler HFA (*)] 1 - 2 puffs IH Q4H 11/26/17 [Last Taken Unknown] Alfuzosin HCl [Uroxatral] 10 mg PO DAILY 11/26/17 [Last Taken Unknown] Apixaban [Eliquis] 5 mg PO BID 11/26/17 [Last Taken 11/26/17] Atorvastatin Calcium [Lipitor 40 mg (*)] 40 mg PO DAILY 11/26/17 [Last Taken Unknown] Carvedilol [Coreg (*)] 3.125 mg PO BIDMEAL 11/26/17 [Last Taken Unknown] Latanoprost 0.005% [Xalatan 0.005% (*)] 1 drops EACHEYE DAILY 11/26/17 [Last Taken Unknown] Discharge Medications: Refer to the Discharge Home Medication list for PRN reason. PICC Care - Routine: N/A - Orders Services needed: Home Care, Registered Nurse, Physical Therapy, Occupational Therapy Home Care Face to Face: I certify that this patient was under my care and that I had the required [id number] encounter meeting the encounter requirements on the discharge day. My findings support the fact that the patient is homebound as defined in Home Care Face to Face Continued: CMS Chapter 7 Medicare Benefits Manual 30.1.1 , The condition of the patient is such that there exists a normal inability to leave home and consequently, leaving home would require a considerable and taxing effort. Diet Texture: Regular Texture Diet, Thin Liquids, Meds Whole w/Liquids - Follow Up Care Current Providers and Referrals: Elsa Carias MD [Primary Care Provider] - As per Instructions
--- NOTE | 2017-11-30 11:40 | ASMTLACE ---
LACE Length of stay for Answers: 4-6 days current admission Acuity / Level of Answers: Yes Care: Did the patient have an inpatient admission? Comorbidities - select Answers: Dementia all that apply Moderate or severe liver or renal disease Peptic ulcer disease Other Notes: AFib; Pacemaker; HTN # of Emergency department Answers: 1-2 visits in the last 6 months Score: 18 Date Signed: 11/30/2017 11:39 AM Electronically Signed By:MICAELA Shaver
--- NOTE | 2017-11-30 13:21 | HOSPPROG ---
Hospitalist Progress Note Assessment/Plan: Patient is an 82-year-old male who presented the emergency room with left facial droop and numbness as well as left arm numbness and weakness. He has a past medical history of atrial fibrillation on chronic anticoagulation as well as hypertension, diabetes type 1. He had a CT scan of his head that did not show any acute changes. Of note the patient is status post a renal transplant so IV contrast was avoided. * CVA, lacunar type infarction -he is fully anticoagulated on Eliquis -he is already on statin therapy -his echocardiogram shows that both his atriums are dilated with the left atrium being severely dilated -carotid ultrasound does not show significant stenosis -reviewed the athletic monitor he is in sinus rhythm with frequent PVCs * atrial fibrillation -status post pacemaker placement -interrigation -await cards consult, D/W Dr Wolfe * diabetes type 1 -most recent hemoglobin A1c is 8.4 earlier this month -glucoses are high today-will increase Lantus from 5 units to 10 units *dizziness -pt normally takes midodrin at home PRN, will order now -became very dizzy today and had trouble walking -will watch him overnight -recommending to get oob slowly -cards to review * renal transplant -resumed prednisone and cyclosporin * gout -allopurinol * hematuria *Plan: patient prefers to go home rather than IP rehab -he is unsafe to DC at this time given hypotension and dizziness. -he is not on all of his bp meds at this time Subjective: Feels weak and tired today. No pain. Unable to get out of bed. Objective: Vital Signs Temp Pulse Resp BP Pulse Ox 36.7 C 83 22 H 126/64 H 97 11/30/17 12:00 11/30/17 12:00 11/30/17 12:00 11/30/17 12:00 11/30/17 12:00 Laboratory Results 11/30/17 03:05 11/30/17 03:05 11/29/17 11/30/17 12/01/17 05:59 05:59 05:59 Intake Total 690 1290 Output Total 300 700 Balance 390 590 PT 14.9 SEC (12.0-15.0) 11/26/17 15:00 INR 1.15 (0.83-1.16) 11/26/17 15:00 - Physical Exam Constitutional: not in pain, chronically ill appearing, cachectic Eyes: PERRL, anicteric sclera, EOMI Ears, Nose, Mouth, Throat: moist mucous membranes, hearing normal, ears appear normal Cardiovascular: tachycardia, No JVD, No edema Respiratory: no respiratory distress, no rales or rhonchi, reduced air movement Gastrointestinal: normoactive bowel sounds, No tenderness, No ascites Skin: warm, normal color, No mottled Musculoskeletal: no joint effusions, joint tenderness, generalized weakness Neurologic: AAOx3 Psychiatric: not anxious, not encephalopathic, poor insight, poor judgement ICD10 Worksheet Patient Problems: Problems Problem Status Onset Acute ischemic stroke Acute Dyspnea Acute Elevated troponin Acute Prerenal azotemia Acute Thrombocytosis Acute
--- NOTE | 2017-11-30 14:19 | ASMTCMCOM ---
CM Note CM Note Notes: Pt not medically stable for d/c, does not want rehab. Pt and dghtr request [facility] inpatient rehab still follow pt as dghtr says today they will have "persuasive" conversation with pt about the benefit of a few rehab days. Updated Catarina at [facility] and Kiki at [facility]. CM to follow. Date Signed: 11/30/2017 02:18 PM Electronically Signed By:MICAELA Shaver
--- NOTE | 2017-11-30 15:49 | GCON ---
[f rep st] CONSULTATION CARDIOLOGY CONSULT DATE OF CONSULTATION: 11/30/2017 CHIEF COMPLAINT: Atrial fibrillation, CVA, labile blood pressure. HISTORY OF PRESENT ILLNESS: We were asked by Donna Colon NP to visit with the patient. 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 He also has paroxysmal atrial f ibrillation and a permanent pacemaker that is a [employer] device. He was admitted on November 26 with symptoms of stroke manifest as left facial droop and left arm weaknes s. He also was feeling dizzy at home, so his family brought him in. He was 23 hours out from sympto m onset and is also chronically on Eliquis. Therefore, was not a candidate for tPA therapy. He has been evaluated by Neurology. Facial droop has improved and almost resolved, but left arm weakness re maki. We were asked to consult because the patient had a blood pressure reading of 67 systolic when sitting up at noon today. Otherwise, his blood pressure has been either normal or high. In fact, on admiss ion to the ER, his blood pressure was between 164 and 188 systolic. Based on noncontrast head CT, there is no acute bleed or large territory of infarct. He most likely has right lacunar infarct as etiology for his neurological deficits. Upon my evaluation today, he reports fatigue and sleeping poorly last night. He has not had angina o r dyspnea. He still has some left arm weakness. ALLERGIES: No known drug allergies. PAST MEDICAL HISTORY: 1. Paroxysmal atrial fibrillation. 2. Permanent pacemaker, [employer]. 3. Renal transplant in 1998, on chronic immunosuppression. 4. Hypertension. 5. Type 1 diabetes. 6. Legal blindness. 7. Dyslipidemia. 8. History of toe amputation. 9. Gout. 10. BPH. OUTPATIENT MEDICATIONS: Midodrine p.r.n., Coreg 3.125 mg twice daily, albuterol, alfuzosin, allopuri nol, Eliquis, vitamin D3, cyclosporine, Proscar, hydralazine, insulin, CellCept, Protonix, prednisone 5 mg daily. SOCIAL HISTORY: The patient is . His and daughter are at the bedside. He has 2 other d aughters who are involved in his care. FAMILY HISTORY: Not applicable to the current case. PHYSICAL EXAM: VITAL SIGNS: Blood pressure currently was 106/64, heart rate has been mostly in the 80s, oxygen saturation 97% on 1 L, he is afebrile. GENERAL: Chronically ill-appearing, fatigued, el jag male. HEENT: Poor dentition. Mucous membranes are somewhat dry. Normocephalic, atraumatic. CARDIOVASCULAR: JVP is less than 10. Regular rate and rhythm with soft, early, systolic murmur at t he left sternal border. LUNGS: Clear to auscultation bilaterally without wheezes, rhonchi, or rales . ABDOMEN: Soft and nontender without obvious masses or hepatosplenomegaly. EXTREMITIES: Have no significant edema. He does have evidence of a left toe amputation. NEURO: Mild weakness of the lef t extremity by handgrip. Very mild left facial droop. He is able to answer questions, but his speec h is slow. LABORATORY STUDIES: White count 3.2, hematocrit 48, and platelets are 595. INR is 1.15. Basic meta bolic panel: Sodium 138, potassium 4.8, chloride 103, bicarb 23, BUN 37, creatinine 1.3. Magnesium 1.6. Point of care troponin was in negative. LDL cholesterol was 100. Echocardiogram reviewed by me: Overall normal LV systolic function. Basal inferior and basal infero septal hypokinesis which was similar to in August of this year. Moderately to severely dilated left atr ium. Negative bubble study. Xxig-tu-rkjkmhlo mitral regurgitation. Mild tricuspid regurgitation wi th estimated pulmonary pressure of 44 mmHg. Pacemaker check today shows normal device function with approximately 3% burden of atrial fibrillatio n. PVCs. No sustained ventricular arrhythmia. Carotid ultrasound shows no significant flow-limiting plaque. Head CT shows age expected atrophy wit hout mass or hemorrhage. ASSESSMENT AND PLAN: 82-year-old male with long-standing diabetes and multiple complications related to this, systemic hypertension with a long history of labile blood pressure and intermittent use of midodrine at home, paroxysmal atrial fibrillation, pacemaker. He was admitted with right lacunar inf arct and still has mild residual left arm weakness. 1. Labile blood pressure: I have discussed the case with Dr. Spencer. We are concerned that his neuro event may have been related to hypertension. He is on Coreg. I do not agree with the use of p .r.n. Midodrine as I think this could definitely exacerbate hypertension, triggering providers to inc rease his antihypertensive medications, which would then exacerbate his episodes of hypotension. 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 I spent a lo ng time with his family discussing the importance of ongoing lifestyle management, primarily changing positions slowly, always using his walker, maintaining steady oral intake and hydration. They agree . 2. Stroke, this appears lacunar in origin. Less likely thromboembolic. No DALE is necessary at this time. Continue statin and Eliquis. He will require outpatient rehab as well. 3. Paroxysmal atrial fibrillation: He has a low burden of atrial fibrillation based on recent pacem mimi check. Overall, his heart rate is fairly well controlled. He is on a small dose of Coreg. Thi s could be reduced even further to once daily if he continues to have multiple low blood pressure vonnie dings. However, in reviewing his vital signs this admission, he has mostly been normotensive to hype rtensive. 4. Abnormal echocardiogram: He has preserved ejection fraction, but wall motion abnormality is sugg estive of underlying coronary artery disease. Troponin is negative now. He is not having angina. C ertainly, he is high risk for obstructive disease based on his long-standing diabetes and other cardi ac risk factors. However, I see no need for further risk stratification at this time, especially if we are trying to avoid contrast to protect his kidney transplant. 5. 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 He recently moved to the area and has established primary care, so we will defer this to the outpatient setting. I do not know whether this may have had something to do with his stroke. 6. At this point, other than stopping midodrine and lifestyle management as detailed above, I have n o further cardiac recommendations. Will sign off. Please call with questions or concerns. /[id number]/MODL
[2017-11-30] MEDS ORDERED: MIDODRINE HCL 5 MG TAB PO PRN (16:00)
[2017-11-30] MEDS ORDERED: NS 1,000 ML IV ONE (17:30)
[2017-11-30] MEDS ORDERED: NS 1,000 ML IV SCH (19:30)
[2017-12-01] MEDS: ATORVASTATIN CALCIUM 40 MG TAB PO SCH (08:24)
[2017-12-01] MEDS: FINASTERIDE 5 MG TAB PO SCH (08:25)
[2017-12-01] MEDS: URSODIOL 300 MG CAP PO SCH (08:25)
[2017-12-01] MEDS: CYCLOSPORINE MODIFIED 25 MG PO SCH (08:25)
[2017-12-01] MEDS: ALLOPURINOL 100 MG TAB PO SCH (08:25)
[2017-12-01] MEDS: PANTOPRAZOLE SODIUM 40 MG TAB PO SCH (08:25)
[2017-12-01] MEDS: APIXABAN 5 MG TAB PO SCH (08:25)
[2017-12-01] MEDS: MYCOPHENOLATE MOFETIL 250 MG CAP PO SCH (08:25)
[2017-12-01] MEDS: INSULIN GLARGINE 100 UNITS/ML UNIT SC SCH (08:26)
[2017-12-01] MEDS: INSULIN REGULAR HUMAN 100 UNIT/ML UNIT SC SCH ×2 (08:26→12:23)
[2017-12-01] MEDS: CARVEDILOL 3.125 MG TAB PO SCH (08:26)
[2017-12-01] MEDS: LATANOPROST 0.005% 2.5 ML OPHT DROPS EACHEYE SCH (08:26)
[2017-12-01] MEDS: ALFUZOSIN HCL 10 MG PO SCH (08:27)
[2017-12-01] MEDS: predniSONE 5 MG TAB PO SCH (08:40)
[2017-12-01 12:18] VITALS: BP 106/56
--- NOTE | 2017-12-01 13:44 | PDIAF ---
- Diagnosis Diagnosis: CVA Code Status: Full Code - Medication Management Discharge Medications: Medications to Continue on Transfer Allopurinol [Allopurinol 100 MG (*)] 100 mg PO DAILY 09/10/17 [Last Taken ] Cholecalciferol Vit D3 [Vitamin D3 (*)] 1,000 units PO DAILY 09/10/17 [Last Taken 09/10/17] Finasteride [Proscar 5 MG (*)] 5 mg PO DAILY 09/10/17 [Last Taken 09/10/17] Herbals/Supplements -Info Only 1 ea PO DAILY 09/10/17 [Last Taken Unknown] Insulin Aspart [Novolog Flexpen] 0 unit SQ AC 09/10/17 [Last Taken Unknown] Insulin Glargine,Hum.rec.anlog [Lantus Solostar] 8 - 10 units SQ DAILY 09/10/17 [Last Taken 09/10/17] Mycophenolate Mofetil [Cellcept] 500 mg PO BID 09/10/17 [Last Taken 09/10/17] Pantoprazole Sodium [Protonix 40mg (*)] 40 mg PO DAILY 09/10/17 [Last Taken ] Ursodiol [Actigall 300MG (*)] 300 mg PO BID 09/10/17 [Last Taken 09/10/17] cycloSPORINE, MODIFIED [Cyclosporine Modified] 25 mg PO BID 09/10/17 [Last Taken 09/10/17] predniSONE 5 mg PO DAILY 09/10/17 [Last Taken 09/10/17] Albuterol [Proventil Inhaler HFA (*)] 1 - 2 puffs IH Q4H 11/26/17 [Last Taken Unknown] Alfuzosin HCl [Uroxatral] 10 mg PO DAILY 11/26/17 [Last Taken Unknown] Apixaban [Eliquis] 5 mg PO BID 11/26/17 [Last Taken 11/26/17] Atorvastatin Calcium [Lipitor 40 mg (*)] 40 mg PO DAILY 11/26/17 [Last Taken Unknown] Carvedilol [Coreg (*)] 3.125 mg PO BIDMEAL 11/26/17 [Last Taken Unknown] Latanoprost 0.005% [Xalatan 0.005% (*)] 1 drops EACHEYE DAILY 11/26/17 [Last Taken Unknown] Acetaminophen [Tylenol 325mg (*)] 650 mg PO Q4HRS PRN tab 12/01/17 [Last Taken Unknown] Discharge Medications: Refer to the Discharge Home Medication list for PRN reason. PICC Care - Routine: N/A - Orders Services needed: Registered Nurse, Physical Therapy, Occupational Therapy, Speech Language Pathologist Diet Texture: Regular Texture Diet, Thin Liquids, Meds Whole w/Liquids - Follow Up Care Current Providers and Referrals: Elsa Carias MD [Primary Care Provider] - As per Instructions
--- NOTE | 2017-12-01 15:35 | GDS ---
[f rep st] DISCHARGE SUMMARY DISCHARGE DIAGNOSES: 1. Acute cerebrovascular accident. 2. History of atrial fibrillation. 3. Diabetes mellitus type 1. 4. Dizziness. 5. Labile blood pressure. 6. Hypotension. 7. History of renal transplant. 8. History of gout. 9. Hematuria. CONSULTATIONS: 1. Neurology. 2. Cardiology. STUDIES AND PROCEDURES DONE: 1. CT of the head. 2. Carotid Doppler. 3. Echocardiogram. PHYSICAL EXAMINATION: GENERAL: The patient is alert. VITAL SIGNS: Afebrile at 36.9, pulse is 66, respiratory rate is 20, blood pressure is 106/56. He is saturating 95% on room air. I have seen and evaluated the patient on the day of discharge. HOSPITAL COURSE: The patient is an 82-year-old male who presented to the emergency room with complai nts of left-sided facial droop. He was evaluated and diagnosed with: 1. Acute CVA. During this hospitalization, he received a consultation from Neurology. The patient is fully anticoagulated with Eliquis. He is already on a statin. Echocardiogram and Doppler study w ere done during this hospitalization. His telemetry was monitored, and his pacemaker was interrogate d. He did receive a consultation from Cardiology with further recommendations to be made. 2. History of atrial fibrillation. Again, the patient does have a pacemaker. He is rate controlled , and did receive a consultation from Cardiology. There were medication adjustments during this hosp ital course. His midodrine has been discontinued. 3. Diabetes type 1. Hemoglobin A1c is 8.4. Lantus will be continued. 4. Dizziness. This is likely secondary to the patient's acute CVA as well as his orthostasis. This is improved, but requires further rehabilitation and management. 5. History of renal transplant. Continue the patient's previously prescribed immunosuppressive medi cations. DISPOSITION: The patient will be discharged to inpatient rehab for further strengthening and conditi oning. There are no pending studies. He does have significantly labile blood pressure. It was hortensia mmended that his Coreg dose be decreased if he is continuing to be hypotensive. His hydralazine and lisinopril have already been discontinued as well as his midodrine. Followup will be with his primary care physician, Dr. Elsa Carias, as well as Dr. Spencer of Neurology and his vegetable grower. I have spent greater than 35 minutes in the care, coordination, and management of the patient's dispo sition. /[id number]/MODL
--- NOTE | 2017-12-01 16:25 | ASMTCMCOM ---
CM Note CM Note Notes: Pt medically stable for d/c to [facility] inpatient rehab. [facility] transport scheduled, copy of PCS in chart. GERMAN Jeffers called report. Date Signed: 12/01/2017 04:24 PM Electronically Signed By:MICAELA Shaver
--- NOTE | 2017-12-01 16:26 | ASDISCHSUM ---
Discharge Information Plan Status:Inpatient Rehab Medically Cleared to Leave: Discharge Date:12/01/2017 03:58 PM CM D/C Disposition: ADT D/C Disposition:[facility] IP Projected Discharge Date:11/29/2017 11:00 AM Transportation at D/C:ALS/BLS Discharge Delay Reason: Follow-Up Date:11/29/2017 11:00 AM Discharge Slot: Final Diagnosis: Placement Information Referral Type:Rehabilitation Hospital Referral ID:[id number] Provider Name:[facility] Inpatient Rehab Address 1:[address] Phone Number: Address 2: Fax Number: [facility] Selection Factors: State:[place] Referral Type:*Home Health Care Services Referral ID:[id number] Provider Name: Address 1: Phone Number: Address 2: Fax Number: City: Selection Factors: State: Patient Contact Information Contact Name:KEMAL Relationship: Address:[address] [address] City:[place] Alternate Phone: State/Zip Code:[place] [address] Email: Financial Information Financial Class:Medicare Primary Plan Desc:MEDICARE INPATIENT Primary Plan Number:[id number] Secondary Plan Desc:[facility] Secondary Plan Number:[id number] Assessment Information LACE LACE Length of stay for Answers: 4-6 days current admission Acuity / Level of Answers: Yes Care: Did the patient have an inpatient admission? Comorbidities - select Answers: Dementia all that apply Moderate or severe liver or renal disease Peptic ulcer disease Other Notes: AFib; Pacemaker; HTN # of Emergency department Answers: 1-2 visits in the last 6 months Score: 18 Date Signed: 11/30/2017 11:39 AM Electronically Signed By:MICAELA Shaver [facility] Progress Note CM Note CM Note Notes: Pt admitted to hospital after feeling some numbness on left side. Pt lives with his at the [facility], PT/OT are recommending he go to Inpt Rehab. Michelle is waiting for more therapy notes. DC Plan: TBD Date Signed: 11/27/2017 05:15 PM Electronically Signed By:Amber Emery RN [facility] CM Progress Note CM Note CM Note Notes: [facility] inpatient rehab assessing pt. Spoke with pt, Miranda and two dghtrs about [facility] inpatient rehab. Miranda recently was at [facility] inpatient rehab so family states they are familiar with the program. Pt wants to discuss dispo options with friends/family and let CM know if he is interested in [facility] ipr in the morning. Cm will follow. Date Signed: 11/28/2017 02:29 PM Electronically Signed By:MICAELA Shaver [facility] CM Progress Note CM Note CM Note Notes: This morning pt and family state they want home with [facility]. Pt then worked with therapy, was lightheaded and not ambulating safely, family saw this and may be reconsidering [facility] inpatient rehab. PT rec is still inpatient rehab. left for [facility] inpatient to please keep pt for consideration. CM to follow. Date Signed: 11/29/2017 03:53 PM Electronically Signed By:MICAELA Shaver [facility] CM Progress Note CM Note CM Note Notes: Pt not medically stable for d/c, does not want rehab. Pt and dghtr request [facility] inpatient rehab still follow pt as dghtr says today they will have "persuasive" conversation with pt about the benefit of a few rehab days. Updated Catarina [facility]. CM to follow. Date Signed: 11/30/2017 02:18 PM Electronically Signed By:MICAELA Shaver [facility] CM Progress Note CM Note CM Note Notes: Pt medically stable for d/c to [facility] inpatient rehab. [facility] transport scheduled, copy of PCS in chart. GERMAN Jeffers called report. Date Signed: 12/01/2017 04:24 PM Electronically Signed By:MICAELA Shaver Intervention Information Intervention Type:WILLIAM-Signed Date of Service:11/27/2017 11:00 AM Patient Type:Observation Staff Member:Dinora Toussaint Hours: Discipline: Severity: Comment: Intervention Type:IM-Pt. Not Available Date of Service:11/30/2017 12:14 PM Patient Type:Inpatient Staff Member:Dinora Toussaint Hours: Discipline: Severity: Comment:Patient is legally blind. His was not present to sign on his behalf, so he asked that I leave a copy for her to review.
== END 2017-12-01 15:58 | DRG 65 ==
LOC: INTOOBSV 15:27 → F3N 16:22 → OBSVTOIN 11-27 14:52
PROVIDERS: ADMIT Internal Medicine; ATTEND Internal Medicine
DX: I63.9 Cerebral infarction, unspecified (principal); Z94.0 Kidney transplant status; G81.94 Hemiplegia, unspecified affecting left nondominant side; R29.705 NIHSS score 5; E10.9 Type 1 diabetes mellitus without complications; N40.0 Benign prostatic hyperplasia without lower urinary tract symptoms; I10 Essential (primary) hypertension; E78.5 Hyperlipidemia, unspecified; M10.9 Gout, unspecified; Z79.01 Long term (current) use of anticoagulants; Z95.0 Presence of cardiac pacemaker
CPT/HCPCS: 82565-PO; 82947-PO; 84132-PO; 84295-PO; 84484-PO; 84520-PO; 85014-PO; 92523-GN; 92610-GN; 97116-GP; 97162-GP; 97166-GO; 97530-GO; 97530-GP; 97535-GO; G0378; G8978-GP-CJ; G8979-GP-CI; G8987-GO-CJ; G8988-GO-CI; G8996-GN-CI; G8997-GN-CI; G9168-GO-CI; G9169-GN-CI; G9170-GN-CI; J1815; J2405; J7512

== ENCOUNTER 2018-01-26 08:28 | Emergency (ER) | payer OTHER ==
--- NOTE | 2018-01-26 09:14 | EDPHY ---
H & P Stated Complaint: [facility] fall Time Seen by Provider: 01/26/18 08:59 HPI/ROS: CHIEF COMPLAINT: Left shoulder pain post mechanical fall HISTORY OF PRESENT ILLNESS: 82-year-old male with multiple comorbidities including, but not limited to, history of kidney transplant, atrial fibrillation , anticoagulated, pacemaker, left foot amputation, ambulates with a walker, lives independently with his at [facility], arrives via ambulance not a trauma activation, after he was walking of his bathrooms walker, his wheel caught in the fell onto his left side. Complaining of isolated left shoulder pain. States that he may have impacted left side of his head as well. No loss of consciousness. No prolonged periods of immobility on the floor. No midline C-spine pain. No peripheral paresthesia, weakness, numbness. PRIMARY CARE PROVIDER: REVIEW OF SYSTEMS: 10 systems reviewed and negative with the exception of the elements mentioned in the history of present illness PAST MEDICAL/SURGICAL HISTORY: Daily Eliquis. History of kidney transplant. Atrial fibrillation. Diabetes. Pacemaker. The left foot amputation. no relevant medical/surgical history SOCIAL HISTORY: No alcohol or drug use. Lives with his at the [facility] PHYSICAL EXAM 1) GENERAL: Well-developed, well-nourished, alert and oriented. Appears to be in no acute distress. Answering questions appropriately. 2) HEAD: Normocephalic, 0.5 cm abrasion left temporal region 3) HEENT: Pupils equal, round, reactive to light bilaterally. Negative Horners. Nasopharynx, oropharynx, clear. No deformity or angulation of nose. No septal hematoma. No rhinorrhea. No oral trauma. Ears bilaterally with normal tympanic membranes. No hemotympanum. No fluid or blood in the external auditory canal. No raccoon eyes. No Motta sign. Teeth are normally aligned with no gross malocclusion, TMJ bilaterally nontender, facial bones nontender including the zygomatic arch, maxilla mandible. 4) NECK: No cervical collar is on. Posterior cervical spine is nontender, no stepoff, no effusion. Full range of motion which does not elicit any midline cervical spine pain, no posterior midline tenderness, no step-off. 5) LUNGS: Clear to auscultation bilaterally, no wheezes, no rhonchi, no retractions. No obvious signs of trauma. No chest wall pain. No flaring, no grunting. Moving symmetrically. No crepitus. 6) HEART: Regular rate and rhythm, 7) ABDOMEN: No guarding, no rebound, no focal tenderness, no peritoneal signs, no signs of trauma, no ecchymosis 8) MUSCULOSKELETAL: Left upper extremity: Tender to palpation lateral clavicle and shoulder. No deformity no step-off no crepitus. Intact skin. No tenting. No discoloration. Distal neurovascular status intact. Soft compartments. Otherwise, Moving all extremities, no focal areas of tenderness , no obvious trauma. 9) BACK: No midline vertebral tenderness, no fluctuance, no step-off, no obvious trauma, no visual or palpable abnormality. 10) SKIN: No laceration. DIFFERENTIAL DIAGNOSIS: Not necessarily in any particular order, my differential diagnosis includes, but is not limited to, concussion, skull fracture, intraparenchymal contusion, subarachnoid, subdural and epidural hematoma. The patient understands that this diagnosis is provisional and can never be 100% accurate. - Medical/Surgical History Hx Asthma: No Hx Chronic Respiratory Disease: No Hx Diabetes: Yes Hx Cardiac Disease: Yes Hx Renal Disease: Yes Hx Cirrhosis: No Hx Alcoholism: No Hx HIV/AIDS: No Hx Splenectomy or Spleen Trauma: No Other PMH: kidney transplant, afib,dm,pacemaker, L arm fistula, blind,duodenal ulcer, L foot amputation, gallbladder drain placed, orthostatic hypotension - Social History Smoking Status: Former smoker Constitutional: Initial Vital Signs Temperature (C) 36.4 C 01/26/18 08:34 Heart Rate 57 L 01/26/18 08:34 Respiratory Rate 16 01/26/18 08:34 Blood Pressure 192/102 H 01/26/18 08:34 O2 Sat (%) 99 01/26/18 08:34 O2 Delivery Mode Room Air Allergies/Adverse Reactions: No Known Allergies Allergy (Verified 11/26/17 15:02) Home Medications: Medication Instructions Recorded Cholecalciferol Vit D3 [Vitamin D3 1,000 units PO DAILY 09/10/17 (*)] Herbals/Supplements -Info Only 1 ea PO DAILY 09/10/17 Acetaminophen [Tylenol 325mg (*)] 650 mg PO Q4HRS PRN tab 12/01/17 Alfuzosin HCl [Uroxatral] 10 mg PO DAILY #30 tab.er.24h 12/12/17 Allopurinol [Allopurinol 100 MG 100 mg PO DAILY #30 tab 12/12/17 (*)] Amoxicillin/Clavulanate Pot 875 mg PO BID #10 tab 12/12/17 [Augmentin 875 MG TAB (*)] Apixaban [Eliquis] 5 mg PO BID #60 tab 12/12/17 Atorvastatin Calcium [Lipitor 40 40 mg PO DAILY #30 tab 12/12/17 mg (*)] Carvedilol [Coreg (*)] 3.125 mg PO BIDMEAL #15 tab 12/12/17 Finasteride [Proscar 5 MG (*)] 5 mg PO DAILY #30 tab 12/12/17 Insulin Aspart [Novolog Flexpen] 0 unit SQ AC #1 insuln.pen 12/12/17 Insulin Glargine [Lantus Syringe] 16 units SC DAILY #1 vial 12/12/17 Latanoprost 0.005% [Xalatan 0.005% 1 drops EACHEYE DAILY #1 opht.btl 12/12/17 (*)] Mycophenolate Mofetil [Cellcept] 500 mg PO BID #60 tablet 12/12/17 Pantoprazole Sodium [Protonix 40mg 40 mg PO DAILY #30 tab 12/12/17 (*)] Ursodiol [Actigall 300MG (*)] 300 mg PO BID #60 cap 12/12/17 cycloSPORINE, MODIFIED 25 mg PO BID #60 capsule 12/12/17 [Cyclosporine Modified] guaiFENesin [Mucinex 600 MG (*)] 600 mg PO BID tab.er 12/12/17 predniSONE 5 mg PO DAILY #30 tab 12/12/17 Bacitracin Ophthalmic 1 yaneth LEFTEYE TID #1 opht.oint 12/13/17 Bacitracin Ophthalmic 1 yaneth OP TID 5 Days #1 opht.oint 12/13/17 Hydrocodone/APAP 5/325 [[place] 0.5 tab PO Q6 PRN #10 tab 01/26/18 5/325 (RX)] Medical Decision Making ED Course/Re-evaluation: 9:09 a.m.: Head CT ordered in this patient for trauma for the following indication: Greater than 65 years old, anticoagulated. 10:50 a.m.: Patient has been re-evaluated with serial examinations discussed his imaging results showing negative head CT, negative for posttraumatic sequelae. He is noted to have a lateral clavicle fracture. He has been placed into a sling. The correctional counselor/case manager has consulted. The patient ambulates with either a walker or a wheelchair. The feel comfortable being discharged in prefer to be discharged back to [facility]. Admission was offered however that declined this. Recommend follow up with Orthopedics. Usual and customary head injury and orthopedic precautions instructions provided .I saw this patient independently based on established practice protocols. Care of patient under supervision of secondary supervising physician Dr Wilson with whom I discussed case. - Data Points Medications Given: Discontinued Medications Acetaminophen (Tylenol) 1,000 mg PO EDNOW ONE Stop: 01/26/18 10:36 Last Admin: 01/26/18 10:38 Dose: 1,000 mg Hydrocodone Bitart/Acetaminophen ([place] 5/325) 0.5 tab PO EDNOW ONE Stop: 01/26/18 11:36 Last Admin: 01/26/18 11:39 Dose: 0.5 tab Departure - Departure Disposition: Home, Routine, Self-Care Clinical Impression: Clavicle fracture Qualifiers: Encounter type: initial encounter Clavicle location: lateral end Fracture type : closed Fracture alignment: displaced Laterality: left Qualified Code(s): S42.032A - Displaced fracture of lateral end of left clavicle, initial encounter for closed fracture Head injury due to trauma Qualifiers: Encounter type: initial encounter Qualified Code(s): S09.90XA - Unspecified injury of head, initial encounter Condition: Good Instructions: Clavicle Fracture (ED) Additional Instructions: ALTHOUGH THERE IS NO EVIDENCE OF SERIOUS HEAD INJURY AT THIS TIME, DELAYED SIGNS CAN APPEAR 24 TO 48 HOURS AFTER INJURY. PLEASE RETURN TO THE EMERGENCY DEPARTMENT (ED) IMMEDIATELY IF YOU HAVE INCREASED HEADACHE, PERSISTENT HEADACHE , VOMITING, WEAKNESS, CONFUSION OR VISUAL PROBLEMS. WE RECOMMEND THAT YOU DO NOT RESUME CONTACT SPORTS OR ACTIVITIES THAT TAKE COORDINATION OR BALANCE SUCH SKIING OR RIDING A BICYCLE UNTIL CLEARED TO DO SO BY YOUR DOCTOR OR BY A NEUROLOGIST. Return to the ER immediately if you experience discoloration, have worsening pain, numbness, tingling, or any other symptoms that concern you. If you received x-rays in the emergency department today, be advised, that ligamentous , tendon, muscular, and other non-bony injury cannot be fully ruled out. Try to keep your affected extremity elevated above the level of your chest, and keep cold packs on the affected area, for the next 48 hours. Referrals: Elsa Carias MD [Primary Care Provider] - 2-3 days, call for appt. Arturo Henriquez MD [Medical Doctor] - 2-3 days, call for appt. Prescriptions: Hydrocodone/APAP 5/325 [[place] 5/325 (RX)] 0.5 tab PO Q6 PRN #10 tab PRN Reason: Pain, Severe
[2018-01-26] MEDS ORDERED: ACETAMINOPHEN 500 MG TAB PO ONE (10:35)
[2018-01-26 11:19] VITALS: BP 181/79
[2018-01-26] MEDS ORDERED: HYDROCODONE/APAP 5/325 TAB PO ONE (11:35)
--- NOTE | 2018-01-26 11:41 | ASMTCMCOM ---
CM Note CM Note Notes: Pt presented to the ED via EMS from his Independent Living apartment at the [facility] for left shoulder pain. Pt had a mechanical fall while ambulating with his walker. Pt pt has a left clavicle fracture. Pt accompanied by his Miranda. Spoke with pt and Miranda about returning home safely; pt and Miranda state they have a wheelchair, walkers, and other assistive devices in their apartment. Pt said their daughter, Vianca ([phone]) is already looking into setting up additional non-skilled home care assistance through the [facility]. Pt was recently at [facility] Inpt Rehab from 12/01-12/13/17 after having a CVA; pt was discharged home w/ [facility] RN/PT/OT, pt was d/c'd from on 01/05/18. Pt requested assistance with calling and canceling his appt this afternoon with Dr Herman at [facility] ([phone]). This CM called and spoke w/[facility] staff and requested appt be cancelled; their staff to reach out to pt and Miranda re:rescheduling. Pt's PCP is Elsa Carias at [facility]. Miranda states she will call and make a follow-up appt. CM available for further assistance if needed. Date Signed: 01/26/2018 11:27 AM Electronically Signed By:Kimberly Longoria RN
== END 2018-01-26 11:47 | disposition home or self-care (01) ==
LOC: EDUNIT#
DX: S42.032A Displaced fracture of lateral end of left clavicle, initial encounter for closed fracture (principal); W01.0XXA Fall on same level from slipping, tripping and stumbling without subsequent striking against object, initial encounter; Y92.031 Bathroom in apartment as the place of occurrence of the external cause; Y93.01 Activity, walking, marching and hiking

== ENCOUNTER 2018-02-14 19:09 | Inpatient (IN) | payer OTHER ==
--- NOTE | 2018-02-14 19:19 | EDPHY ---
H & P Stated Complaint: bilateral lower back pain, no fall, x4 days, worse when standing Time Seen by Provider: 02/14/18 19:17 HPI/ROS: HPI: This 82-year-old male who presents with Chief Complaint: bilateral lower back pain, no fall, x4 days, worse when standing Location: Mid and lower back Quality: Pain Duration: 5 days Signs and Symptoms: no fever, no nausea, no vomiting, no hematemesis, no blood in stool, no abdominal bloating, no diarrhea, no urinary symptoms, no testicular /groin pain, no indigestion, no chest pain, no shortness of breath Timing: Acute, constant Severity: 9 out of 10 Context: Patient has multiple comorbidities including but not limited to history kidney transplant, atrial fibrillation, anticoagulated, pacemaker, left foot amputation, ambulates with a walker, lives independently with his at the [facility], presents in a wheelchair complaining of gradual onset of mid and lower back pain bilateral sides over the last 5 days. He was seen by physical therapy on 02/12/2018 due to his inability to transfer and ambulate. Patient fell on 01/26/2018 when he was walking out of the bathroom with his walker will got caught and he fell on his left side sustaining a left lateral clavicle fracture. Patient has been taking Percocet with mild, transient relief. He denies any changes above baseline to the urine or bowel. Modifying Factors: Percocet Comment: ROS: A comprehensive 10 system review of systems is otherwise negative aside from elements mentioned in the history of present illness. MEDICAL/SURGICAL/SOCIAL HISTORY: Medical/Surgical history: kidney transplant, afib, dm, pacemaker, L arm fistula , blind, duodenal ulcer, L foot amputation, gallbladder drain placed, orthostatic hypotension Social history: retired. former smoker. Family history noncontributory. CONSTITUTIONAL: Elderly, moderate distress, male with daughters and at bedside, awake and alert HEENT: Atraumatic and normocephalic, PERRL, EOMI. Nares patent; no rhinorrhea; no nasal mucosal edema. Tympanic membranes clear. Oropharynx clear, no exudate and moist pink mucosa. Airway patent. No lymphadenopathy. No meningismus. Cardiovascular: Normal S1/S2, regular rate, irregular rhythm, without murmur rub or gallop. PULMONARY/CHEST: Symmetrical and nontender. Clear to auscultation bilaterally. Good air movement. No accessory muscle usage. ABDOMEN: Soft, nondistended, nontender, no rebound, no guarding, no peritoneal signs, no masses or organomegaly. No CVAT. BACK: Lower thoracic and upper to mid lumbar reproducible midline tenderness, no paraspinous spasm, deep tendon reflexes 2/2, moderate pain with straight leg raise, No foot drop. Able to lift legs off the bed approximately 5. Achilles reflexes are equal bilaterally. Able to walk on heels and toes without difficulty. EXTREMITIES: 2/2 pulses, strength 5/5, left clavicle deformity noted. Reluctant to move left shoulder. no deformities, no clubbing, no cyanosis or edema. NEUROLOGICAL: Alert and oriented x4. Patient unable to transfer from the wheelchair to the bed without moderate assistance. SKIN: Warm and dry, pallor, no erythema. no rash. Good capillary refill. Source: Patient, Family (Daughters and ) Exam Limitations: No limitations - Personal History Current Tetanus Diphtheria and Acellular Pertussis (TDAP): Yes - Medical/Surgical History Hx Asthma: No Hx Chronic Respiratory Disease: No Hx Diabetes: Yes Hx Cardiac Disease: Yes Hx Renal Disease: Yes Hx Cirrhosis: No Hx Alcoholism: No Hx HIV/AIDS: No Hx Splenectomy or Spleen Trauma: No Other PMH: kidney transplant, afib,dm,pacemaker, L arm fistula, blind,duodenal ulcer, L foot amputation, gallbladder drain placed, orthostatic hypotension - Social History Smoking Status: Former smoker Constitutional: Initial Vital Signs Temperature (C) 36.8 C 02/14/18 19:14 Heart Rate 70 02/14/18 19:14 Respiratory Rate 18 02/14/18 19:14 Blood Pressure 122/61 H 02/14/18 19:14 O2 Sat (%) 97 02/14/18 19:14 O2 Delivery Mode Room Air Allergies/Adverse Reactions: No Known Allergies Allergy (Verified 02/14/18 19:12) Home Medications: Medication Instructions Recorded Cholecalciferol Vit D3 [Vitamin D3 1,000 units PO DAILY 09/10/17 (*)] Herbals/Supplements -Info Only 1 ea PO DAILY 09/10/17 Acetaminophen [Tylenol 325mg (*)] 650 mg PO Q4HRS PRN tab 12/01/17 Alfuzosin HCl [Uroxatral] 10 mg PO DAILY #30 tab.er.24h 12/12/17 Allopurinol [Allopurinol 100 MG 100 mg PO DAILY #30 tab 12/12/17 (*)] Amoxicillin/Clavulanate Pot 875 mg PO BID #10 tab 12/12/17 [Augmentin 875 MG TAB (*)] Apixaban [Eliquis] 5 mg PO BID #60 tab 12/12/17 Atorvastatin Calcium [Lipitor 40 40 mg PO DAILY #30 tab 12/12/17 mg (*)] Carvedilol [Coreg (*)] 3.125 mg PO BIDMEAL #15 tab 12/12/17 Finasteride [Proscar 5 MG (*)] 5 mg PO DAILY #30 tab 12/12/17 Insulin Aspart [Novolog Flexpen] 0 unit SQ AC #1 insuln.pen 12/12/17 Insulin Glargine [Lantus Syringe] 16 units SC DAILY #1 vial 12/12/17 Latanoprost 0.005% [Xalatan 0.005% 1 drops EACHEYE DAILY #1 opht.btl 12/12/17 (*)] Mycophenolate Mofetil [Cellcept] 500 mg PO BID #60 tablet 12/12/17 Pantoprazole Sodium [Protonix 40mg 40 mg PO DAILY #30 tab 12/12/17 (*)] Ursodiol [Actigall 300MG (*)] 300 mg PO BID #60 cap 12/12/17 cycloSPORINE, MODIFIED 25 mg PO BID #60 capsule 12/12/17 [Cyclosporine Modified] guaiFENesin [Mucinex 600 MG (*)] 600 mg PO BID tab.er 12/12/17 predniSONE 5 mg PO DAILY #30 tab 12/12/17 Bacitracin Ophthalmic 1 yaneth LEFTEYE TID #1 opht.oint 12/13/17 Bacitracin Ophthalmic 1 yaneth OP TID 5 Days #1 opht.oint 12/13/17 Hydrocodone/APAP 5/325 [[place] 0.5 tab PO Q6 PRN #10 tab 01/26/18 5/325 (RX)] Medical Decision Making - Diagnostics Imaging Results: Imaging Impressions Lumbar Spine CT 02/14/18 19:37 Impression: 1. Segmentation variation, with lumbarized S1 segment and rudimentary disk space at S1-S2. 2. Acute/subacute mild L1 compression fracture, with less than 20% height loss. No retropulsed fragment. 3. Minimally displaced acute/subacute left 1st through 4th rib fractures. Findings discussed with Emergency Department Physician Wafer Slicer, ELISA Linton, on February 14, 2018 at 2032. E:amm Thoracic Spine CT 02/14/18 19:37 Impression: 1. Segmentation variation, with lumbarized S1 segment and rudimentary disk space at S1-S2. 2. Acute/subacute mild L1 compression fracture, with less than 20% height loss. No retropulsed fragment. 3. Minimally displaced acute/subacute left 1st through 4th rib fractures. Findings discussed with Emergency Department Physician Wafer Slicer, ELISA Linton, on February 14, 2018 at 2032. E:amm ED Course/Re-evaluation: Vital signs reviewed and stable upon arrival. no hypoxia. IV access and laboratory studies obtained. Unable to perform MRI so CT of the thoracic and lumbar spine ordered. Given IV morphine and IV Zofran. 1952: Labs reviewed. WBC 9.9 K, H&H 12.4/39.0, coags within normal limits, BUN 39, creatinine 1.0, serum glucose 254 2026: Called by radiologist, CT thoracic and lumbar spine shows mild acute/ subacute compression fracture at L1 and Minimally displaced acute/subacute left 1st through 4th rib fractures. No pneumothorax. 2030: ED decision to consult for admission for patient's intractable back pain, L1 compression fx, multiple rib fx, and inability to ambulate safely. Spoke with hospitalist, Dr. Gayle, who kindly agrees to admit patient and spoke with Trauma surgery Dr. Bryant who kindly agrees to consult on patient. 2056: Reassessed patient and updated the family on the plan of care. This patient was seen under the supervision of my secondary supervising physician. I evaluated care for this patient independently. Discussed this patient with Dr. Washington. Differential Diagnosis: Back pain including but not limited to muscular pain, herniated disc, spine fracture, intra-abdominal causes and urinary tract infection. - Data Points Laboratory Results: Laboratory Results 02/14/18 19:35 02/14/18 19:35 02/14/18 02/14/18 02/14/18 19:35 19:35 19:35 WBC 9.90 10^3/uL H 10^3/uL (3.80-9.50) RBC 4.28 10^6/uL L 10^6/uL (4.40-6.38) Hgb 12.4 g/dL L g/dL (13.7-17.5) Hct 39.0 % L % (40.0-51.0) MCV 91.1 fL fL (81.5-99.8) MCH 29.0 pg pg (27.9-34.1) MCHC 31.8 g/dL L g/dL (32.4-36.7) RDW 18.9 % H % (11.5-15.2) Plt Count 461 10^3/uL H 10^3/uL (150-400) MPV 9.9 fL fL (8.7-11.7) Neut % (Auto) 83.3 % H % (39.3-74.2) Lymph % (Auto) 8.9 % L % (15.0-45.0) [place] % (Auto) 6.1 % % (4.5-13.0) Eos % (Auto) 0.7 % % (0.6-7.6) Baso % (Auto) 0.3 % % (0.3-1.7) Nucleat RBC Rel Count 0.0 % % (0.0-0.2) Absolute Neuts (auto) 8.25 10^3/uL H 10^3/uL (1.70-6.50) Absolute Lymphs (auto) 0.88 10^3/uL L 10^3/uL (1.00-3.00) Absolute Monos (auto) 0.60 10^3/uL 10^3/uL (0.30-0.80) Absolute Eos (auto) 0.07 10^3/uL 10^3/uL (0.03-0.40) Absolute Basos (auto) 0.03 10^3/uL 10^3/uL (0.02-0.10) Absolute Nucleated RBC 0.00 10^3/uL 10^3/uL (0-0.01) Immature Gran % 0.7 % % (0.0-1.1) Immature Gran # 0.07 10^3/uL 10^3/uL (0.00-0.10) PT 14.8 SEC SEC (12.0-15.0) INR 1.14 (0.83-1.16) APTT 34.6 SEC SEC (23.0-38.0) Sodium 139 mEq/L mEq/L (135-145) Potassium 4.9 mEq/L mEq/L (3.3-5.0) Chloride 105 mEq/L mEq/L (97-110) Carbon Dioxide 25 mEq/l mEq/l (22-31) Anion Gap 9 mEq/L mEq/L (6-14) BUN 39 mg/dL H mg/dL (7-23) Creatinine 1.0 mg/dL mg/dL (0.7-1.3) Estimated GFR > 60 Glucose 254 mg/dL H mg/dL (70-100) Calcium 9.3 mg/dL mg/dL (8.5-10.4) Medications Given: Discontinued Medications Morphine Sulfate (Morphine) 4 mg IVP EDNOW ONE Stop: 02/14/18 19:27 Last Admin: 02/14/18 19:43 Dose: 4 mg Ondansetron HCl (Zofran) 4 mg IVP EDNOW ONE Stop: 02/14/18 19:27 Last Admin: 02/14/18 19:43 Dose: 4 mg Departure - Departure Disposition: [facility] Inpatient Acute Clinical Impression: Unable to ambulate, Intractable back pain, Multiple fractures of ribs, left side, initial encounter for closed fracture Closed left clavicular fracture Qualifiers: Encounter type: initial encounter Clavicle location: lateral end Fracture alignment: displaced Qualified Code(s): S42.032A - Displaced fracture of lateral end of left clavicle, initial encounter for closed fracture Compression fracture of L1 lumbar vertebra Qualifiers: Encounter type: initial encounter Fracture type: closed Qualified Code(s): S32.010A - Wedge compression fracture of first lumbar vertebra, initial encounter for closed fracture Condition: Fair
[2018-02-14] MEDS ORDERED: ONDANSETRON 4 MG/2 ML VIAL IVP ONE (19:26)
[2018-02-14 19:46] LABS: PLATELET COUNT 461 10^3/uL (150-400)
[2018-02-14 19:54] LABS: INR 1.14 (0.83-1.16); PROTIME(PATIENT) 14.8 SEC (12.0-15.0)
[2018-02-14] MEDS ORDERED: ONDANSETRON DISINTEGRATING 4 MG TAB PO PRN (22:30)
[2018-02-14] MEDS ORDERED: ACETAMINOPHEN 325 MG TAB PO PRN (22:30)
--- NOTE | 2018-02-14 22:38 | SOAPPROG ---
SOAP Progress Note Assessment/Plan: Assessment: 82 MALE ADMIT FOR BACK PAIN/ PT HAD A FALL 3 WEEKS AGO BUT NO INJURIES FOUND EXCEPT LEFT CLAV FX NOW CO LOWER BACKPAIN FOR 3 DAYS/ NO ADDITIONAL TRAUMA CT SHOWS LEFT 1-4 RIB FXs, MILD L1 COMPRESSION FX HEENT NONICTERIC, NO BRUITS, NO ADENOPATHY CHEST CLEAR COR RR ABD SOFT, NONTENDER, NO MASSES GEN OK EXTREM: ABSENT PEDAL PULSES/ LEFT TRANSMET AMPUTATION IMPR: L1 FX/ LEFT 1-4 RIB FXs/ SIGNIFICANT PVD 2/2 DM Plan:NS CONSULT FOR BACK BRACE/ VASCULAR EVAL 02/14/18 22:31 Objective: Vital Signs Temp Pulse Resp BP Pulse Ox 36.3 C 55 L 18 147/62 H 97 02/14/18 21:40 02/14/18 21:40 02/14/18 21:40 02/14/18 21:40 02/14/18 21:40 02/13/18 02/14/18 02/15/18 05:59 05:59 05:59 Intake Total 20 Balance 20 PT 14.8 SEC (12.0-15.0) 02/14/18 19:35 INR 1.14 (0.83-1.16) 02/14/18 19:35 ICD10 Worksheet Patient Problems: Problems Problem Status Onset Closed left clavicular fracture Acute Compression fracture of L1 lumbar vertebra Acute Intractable back pain Acute Multiple fractures of ribs, left side, initial encounter for closed fracture Acute Unable to ambulate Acute Acute ischemic stroke Acute Clavicle fracture Acute Dyspnea Acute Elevated troponin Acute Head injury due to trauma Acute Prerenal azotemia Acute Thrombocytosis Acute
[2018-02-14] MEDS ORDERED: oxyCODONE IR 5 MG TAB PO PRN (22:39)
[2018-02-14] MEDS ORDERED: IBUPROFEN 200 MG TAB PO PRN (22:39)
--- NOTE | 2018-02-15 00:59 | PDGENHP ---
History and Physical - Chief Complaint Back pain - History of Present Illness 82 yo M w/ hx of IDDM, AF, renal transplant in 1998, and CVA presents with back pain. Patient has a complicated recent course. He suffered a lacunar infarct in November of this year. He continues to have L arm numbness due to this. While in rehab on 01/26, he tried to grab something with his L hand and suffered a fall onto his L side when he was unable to hold on. During that ED visit he was diagnosed with L clavicular fracture but discharged home per his wishes. He did reasonably well after that but over the last 5 days he developed severe, lower back pain. He describes this as central, lumbar pain. He denies radiation to lower extremities or loss of bowel/bladder control. In the ED evaluation was notable for new L1 compression fracture. The patient denies any trauma to his back that he can remember. In addition, CT revealed sub-acute L rib fractures, which I presume are related to his fall on his L side on 01/26. Case discussed with ED physician Dr. Orellana; records reviewed including most recent DC summary by Dr. Kurt Mejia dated 12/13/17. 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 - Surgical History Additional surgical history: Renal transplant 1998, cadaveric - Family History Positive for: diabetes type I Additional family history: Denies family hx of renal disease - Social History Smoking Status: Former smoker Review of Systems Review of Systems: ROS: 10pt was reviewed & negative except for what was stated in HPI & below Physical Exam Physical Exam: Temp Pulse Resp BP Pulse Ox 36.4 C 68 16 144/69 H 96 02/14/18 23:39 02/14/18 23:39 02/14/18 23:39 02/14/18 23:39 02/14/18 23:39 Constitutional: no apparent distress, not in pain Eyes: PERRL, EOMI Ears, Nose, Mouth, Throat: moist mucous membranes, no oral mucosal ulcers Cardiovascular: systolic murmur, No edema Respiratory: no respiratory distress, clear to auscultation Gastrointestinal: normoactive bowel sounds, soft, non-tender abdomen Skin: warm, normal color Musculoskeletal: full muscle strength, no muscle tenderness Neurologic: AAOx3, CN II-XII Intact Psychiatric: interacting appropriately, not anxious Lab Data & Imaging Review 02/14/18 19:35 02/14/18 19:35 WBC 9.90 10^3/uL (3.80-9.50) H 02/14/18 19:35 RBC 4.28 10^6/uL (4.40-6.38) L 02/14/18 19:35 Hgb 12.4 g/dL (13.7-17.5) L 02/14/18 19:35 Hct 39.0 % (40.0-51.0) L 02/14/18 19:35 MCV 91.1 fL (81.5-99.8) 02/14/18 19:35 MCH 29.0 pg (27.9-34.1) 02/14/18 19:35 MCHC 31.8 g/dL (32.4-36.7) L 02/14/18 19:35 RDW 18.9 % (11.5-15.2) H 02/14/18 19:35 Plt Count 461 10^3/uL (150-400) H 02/14/18 19:35 MPV 9.9 fL (8.7-11.7) 02/14/18 19:35 Neut % (Auto) 83.3 % (39.3-74.2) H 02/14/18 19:35 Lymph % (Auto) 8.9 % (15.0-45.0) L 02/14/18 19:35 [place] % (Auto) 6.1 % (4.5-13.0) 02/14/18 19:35 Eos % (Auto) 0.7 % (0.6-7.6) 02/14/18 19:35 Baso % (Auto) 0.3 % (0.3-1.7) 02/14/18 19:35 Nucleat RBC Rel Count 0.0 % (0.0-0.2) 02/14/18 19:35 Absolute Neuts (auto) 8.25 10^3/uL (1.70-6.50) H 02/14/18 19:35 Absolute Lymphs (auto) 0.88 10^3/uL (1.00-3.00) L 02/14/18 19:35 Absolute Monos (auto) 0.60 10^3/uL (0.30-0.80) 02/14/18 19:35 Absolute Eos (auto) 0.07 10^3/uL (0.03-0.40) 02/14/18 19:35 Absolute Basos (auto) 0.03 10^3/uL (0.02-0.10) 02/14/18 19:35 Absolute Nucleated RBC 0.00 10^3/uL (0-0.01) 02/14/18 19:35 Immature Gran % 0.7 % (0.0-1.1) 02/14/18 19:35 Immature Gran # 0.07 10^3/uL (0.00-0.10) 02/14/18 19:35 PT 14.8 SEC (12.0-15.0) 02/14/18 19:35 INR 1.14 (0.83-1.16) 02/14/18 19:35 APTT 34.6 SEC (23.0-38.0) 02/14/18 19:35 Sodium 139 mEq/L (135-145) 02/14/18 19:35 Potassium 4.9 mEq/L (3.3-5.0) 02/14/18 19:35 Chloride 105 mEq/L (97-110) 02/14/18 19:35 Carbon Dioxide 25 mEq/l (22-31) 02/14/18 19:35 Anion Gap 9 mEq/L (6-14) 02/14/18 19:35 BUN 39 mg/dL (7-23) H 02/14/18 19:35 Creatinine 1.0 mg/dL (0.7-1.3) 02/14/18 19:35 Estimated GFR > 60 02/14/18 19:35 Glucose 254 mg/dL (70-100) H 02/14/18 19:35 POC Glucose 226 mg/dL (70-100) H 02/14/18 23:37 Calcium 9.3 mg/dL (8.5-10.4) 02/14/18 19:35 Imaging Review: Imaging Impressions Lumbar Spine CT 02/14/18 19:37 Impression: 1. Segmentation variation, with lumbarized S1 segment and rudimentary disk space at S1-S2. 2. Acute/subacute mild L1 compression fracture, with less than 20% height loss. No retropulsed fragment. 3. Old/subacute fracture S5 segment. 4. Minimally displaced acute/subacute left 1st through 4th rib fractures. Findings discussed with Emergency Department Physician Macerator Operator, ELISA Linton, on February 14, 2018 at 2032. E:amm Thoracic Spine CT 02/14/18 19:37 Impression: 1. Segmentation variation, with lumbarized S1 segment and rudimentary disk space at S1-S2. 2. Acute/subacute mild L1 compression fracture, with less than 20% height loss. No retropulsed fragment. 3. Old/subacute fracture S5 segment. 4. Minimally displaced acute/subacute left 1st through 4th rib fractures. Findings discussed with Emergency Department Physician Macerator Operator, ELISA Linton, on February 14, 2018 at 2032. E:amm Assessment & Plan Assessment: 82 yo M w/ hx of IDDM, AF, renal transplant in 1998, and CVA presents with back pain and found to have L1 compression fracture and sub-acute L-sided rib fractures. Plan: 1. Back pain - Presumably 2/2 L1 compression fracture noted on CT (personally reviewed/interpreted). Etiology of this is unclear as patient's last fall was on 01/26 and his symptoms began only 5 days ago. Imaging reveals < 20% height loss. - Admit for observation - Conservative pain control with APAP 1g TID karen + oxycodone 2.5-5 mg q4h PRN ( Will avoid NSAIDs noting hx of renal transplant and ongoing anticoagulation) - PT/OT evaluations - Consider IR consult for kyphoplasty if patient does not tolerate conservative management - Trauma surgery consulted in ED, appreciate assistance 2. Rib fractures - Minimally displaced acute/subacute left 1st through 4th rib fractures seen on CT. I suspect this is related to fall on his L side suffered on 01/26. This fall also resulted in L clavicular fracture. - Pain control as above - Trauma surgery consulted - PT/OT evaluations 3. IDDM - On insulin glargine 14 u qAM + SSI as outpatient. - Will continue home regimen - Monitor BG ACHS, D50 IV PRN for hypoglycemia 4. AF - Continue carvedilol and apixaban. 5. Hx ESRD s/p renal transplant - Renal function remains WNL; transplant performed in 1998 with cadaveric donor. - Continue home IS regimen - Avoid nephrotoxic agents 6. CVA - Lacunar infarct suffered in November of 2017; continues to have LUE numbness and mild weakness. - Continue statin Diet - Regular Code - Full Ppx - apixaban Dispo - Admit under inpatient status as I suspect pain control and evaluation will require >2 MN's.
[2018-02-15] MEDS: oxyCODONE IR 5 MG TAB PO PRN ×4 (02:07→17:00)
[2018-02-15] MEDS ORDERED: MAGNESIUM HYDROXIDE 30 ML UDCUP PO PRN (04:21)
[2018-02-15] MEDS ORDERED: LACTULOSE 20 GM/30 ML UDCUP PO PRN (04:21)
[2018-02-15] MEDS ORDERED: BISACODYL 10 MG SUPP PR PRN (04:21)
[2018-02-15 05:22] LABS: PLATELET COUNT 432 10^3/uL (150-400)
--- NOTE | 2018-02-15 06:30 | GCON ---
DATE OF CONSULTATION: 02/14/2018 Patient is an 82-year-old male brought to the ER because of back pain. He has a history of a fall ap proximately 3 weeks ago, which the only injury determined was a left clavicle fracture. He has been getting progressively better until the last few days when he has developed sharp back pain which has prevented him from being mobile. Came to the ER tonight for evaluation. CT scan shows an L1 mild co mpression fracture without any cord compromise. He was also found to have 1 through 4 left rib fract ures, which were not seen 3 weeks ago in the ER. He is admitted at this time for pain control and ev aluation. He also has a history of peripheral vascular disease with a left transmetatarsal amputatio n, and a nonhealing sore on his right big toe. PAST HISTORY: Includes: 1. Renal transplantation 19 years ago, still functioning well. 2. Diabetes mellitus, on insulin. 3. Peripheral vascular disease. 4. Right big toe ulceration. 5. Left transmetatarsal amputation. REVIEW OF SYSTEMS: Negative on a full 10-point review. PAST HISTORY: Includes a pacemaker, atrial fibrillation, diabetes, left arm AV fistula, history of d uodenal ulcer, left transmetatarsal amputation, cholecystectomy, blindness. FAMILY HISTORY: Noncontributory. SOCIAL HISTORY: Reveals he is an ex-smoker. ALLERGIES: No known allergies. MEDICATIONS: Vitamin D, Actigall, Protonix, CellCept, Xalatan eyedrops, Lantus, NovoLog, Proscar, Co reg, Lipitor, Eliquis, Augmentin, allopurinol, Urox, Tylenol, cyclosporine, Mucinex, prednisone, baci tracin ophthalmic ointment, and Percocet. PHYSICAL EXAMINATION: GENERAL: An alert 82-year-old male in no acute distress. HEAD/NECK: Reveals no bruits. Neck is supple. There are no oral lesions. Pupils are equal. He is nonicteric. CHEST : Clear and symmetric, with a tender left clavicle. He has rib fractures on the left, but they are not palpable or tender. CARDIAC: Regular rhythm. ABDOMEN: Soft and nontender. Pelvic bones are i ntact with no evidence of trauma. There are no hernias. GENITALIA: Normal. EXTREMITIES: Reveal f ull range of motion. Absent pedal pulses but good femoral pulses, and a small ulceration on the tip of the right great toe, which is not healing. Also has a transmetatarsal amputation on the left foot . NEURO: Physiologic. BACK: Reveals tenderness over the L1 area in the midline. IMPRESSION: 1. L1 compression fracture. 2. Left rib fractures. 3. Left clavicle fracture. 4. Peripheral vascular disease with a right great toe ulceration and absent pedal pulses. PLAN: 1. Admit for pain control and evaluation. 2. Arch studies to evaluate the arterial flow. He may need CT angiogram. His family will try to fi nd the disc from [place] where he has had some studies before, although it is unclear what he has had. Risks and options have been fully discussed. He wishes to proceed with this plan. /[id number]/MODL
[2018-02-15] MEDS: INSULIN LISPRO 100 UNIT/ML SC SCH ×3 (09:00→17:12)
[2018-02-15] MEDS ORDERED: INSULIN GLARGINE 100 UNITS/ML UNIT SC SCH ×2 (09:00)
[2018-02-15] MEDS: ONDANSETRON 4 MG/2 ML VIAL IVP PRN (09:15)
--- NOTE | 2018-02-15 10:26 | HOSPPROG ---
Hospitalist Progress Note Assessment/Plan: Patient is 82 y/o man who presented to the ER with back pain. Was at Rehab on and suffered a fall-was seen in the ED and noted to have a left clavicular fx -he was then dc home per his wishes. He did well but over the past 5 days bit he developed severe low back pain without loss of bladder/bowel control. In the ED evaluation was notable for new L1 compression fracture. The patient denies any trauma to his back that he can remember. In addition, CT revealed sub -acute L rib fractures. Patient has a hx of a renal transplant in 1998, CVA and IDDM. *acute back pain -noted on scan -cont scheduled APAP -consider a kyphoplasty but he is on Apixaban -his pain is mainly from ribs, back is not causing much pain -Lidoderm patch *rib fx -1st through 4th -this is causing the main c/o of his pain *gait instability -several falls, noted to have a left clavicular fx *IDDM -glucoses high, increase his long acting -resumed home meds *Hyperkalemia -mild *hx of renal tx -resumed home meds -avoid any nephrotoxic medications -creat is stable *PVD with transmetatarsal amputation -Dr Bryant to further evaluate -studies ordered for arterial flow *CVA -lacunar infarct noted int november of this year *DVT prophylaxis: Apixaban Subjective: Osmany is c/o rib pain, says his back isn't the main cause of his pain. Objective: Vital Signs Temp Pulse Resp BP Pulse Ox 36.4 C 84 16 125/75 H 95 02/15/18 03:49 02/15/18 03:49 02/15/18 03:49 02/15/18 06:43 02/15/18 03:49 Laboratory Results 02/15/18 04:31 02/15/18 04:31 02/14/18 02/15/18 02/16/18 05:59 05:59 05:59 Intake Total 170 Output Total 100 Balance 70 PT 14.8 SEC (12.0-15.0) 02/14/18 19:35 INR 1.14 (0.83-1.16) 02/14/18 19:35 - Physical Exam Constitutional: chronically ill appearing, other (thin) Eyes: PERRL Ears, Nose, Mouth, Throat: dry mucous membranes, hard of hearing Cardiovascular: regular rate and rhythym, systolic murmur Respiratory: no respiratory distress, reduced air movement (difficulty taking a deep breath due to the pain) Skin: warm (pale) Musculoskeletal: muscular tenderness (left rib), generalized weakness Neurologic: AAOx3 Psychiatric: interacting appropriately ICD10 Worksheet Patient Problems: Problems Problem Status Onset Closed left clavicular fracture Acute Compression fracture of L1 lumbar vertebra Acute Intractable back pain Acute Multiple fractures of ribs, left side, initial encounter for closed fracture Acute Unable to ambulate Acute Acute ischemic stroke Acute Clavicle fracture Acute Dyspnea Acute Elevated troponin Acute Head injury due to trauma Acute Prerenal azotemia Acute Thrombocytosis Acute
--- NOTE | 2018-02-15 10:31 | ASMTCMCOM ---
CM Note CM Note Notes: Patient admitted with back pain. Per notes, he sustained a fall 01/26 and suffered a clavicle and some rib fractures. He also has a L1 compression fracture upon imaging. Conservative measures will be tried first; patient may also qualify for a kyphoplasty w IR. Patient normally lives independently w his at the [facility]. I spoke w his daughter Jeremías who is in from [place] of [place], and the family (there are two other daughters, as well) realizes that the patient needs a higher level of care. They have applied to live at [facility], which includes independent, assisted, memory care, and SNF. I explained that patient may need to d/c directly to SNF or to assisted living with home care. PT/OT/BUSINESS SOLUTION ANALYST evals still pending. Case Management will follow. Date Signed: 02/15/2018 10:30 AM Electronically Signed By:Nelida Ureña RN
[2018-02-15] MEDS: ACETAMINOPHEN 500 MG TAB PO SCH ×3 (10:52→21:23)
[2018-02-15] MEDS: SENNOSIDES/DOCUSATE SODIUM TAB PO SCH ×2 (10:59→21:23)
[2018-02-15] MEDS: ATORVASTATIN CALCIUM 40 MG TAB PO SCH (11:00)
[2018-02-15] MEDS: predniSONE 5 MG TAB PO SCH (11:00)
[2018-02-15] MEDS: PANTOPRAZOLE SODIUM 40 MG TAB PO SCH (11:00)
[2018-02-15] MEDS: ALLOPURINOL 100 MG TAB PO SCH (11:01)
[2018-02-15] MEDS: APIXABAN 5 MG TAB PO SCH ×2 (11:01→21:23)
[2018-02-15] MEDS: CHOLECALCIFEROL VIT D3 1,000 UNITS TAB PO SCH (11:01)
[2018-02-15] MEDS: CYCLOSPORINE MODIFIED 25 MG PO SCH ×2 (11:01→21:24)
[2018-02-15] MEDS: FINASTERIDE 5 MG TAB PO SCH (11:02)
[2018-02-15] MEDS: CARVEDILOL 6.25 MG TAB PO SCH ×2 (11:05→17:00)
[2018-02-15] MEDS: ALFUZOSIN HCL 10 MG PO SCH (11:16)
[2018-02-15] MEDS: LATANOPROST 0.005% 2.5 ML OPHT DROPS EACHEYE SCH (11:23)
[2018-02-15] MEDS: MYCOPHENOLATE MOFETIL 250 MG CAP PO SCH ×2 (11:23→21:20)
[2018-02-15] MEDS: LIDOCAINE 4%/MENTHOL 1% PATCH TD SCH (11:26)
[2018-02-15] MEDS: URSODIOL 300 MG CAP PO SCH ×2 (12:44→21:24)
--- NOTE | 2018-02-15 14:55 | PDMN ---
Medical Necessity Medical necessity: Pt meets IP criteria per MD & MCG M-63; est los >2 mn for eval/tx of severe back pain w/L1 compression fx, multiple rib fxs & gait instability s/p fall; admit for further monitoring, possible IR consult w/ kyphoplasty, pain management & therapies; comorbid advanced age, CVA, recent L clavicular fx, AFIB, diabetes, ESRD s/p renal transplant; per H&P & order
[2018-02-15] MEDS: PATCH REMOVAL 1 EA PATCH TD SCH (22:25)
[2018-02-16] MEDS: INSULIN LISPRO 100 UNIT/ML SC SCH ×3 (08:36→18:26)
--- NOTE | 2018-02-16 09:12 | HOSPPROG ---
Hospitalist Progress Note Assessment/Plan: Patient is 82 y/o man who presented to the ER with back pain. Was at Rehab on and suffered a fall-was seen in the ED and noted to have a left clavicular fx -he was then dc home per his wishes. He did well but over the past 5 days bit he developed severe low back pain without loss of bladder/bowel control. In the ED evaluation was notable for new L1 compression fracture. The patient denies any trauma to his back that he can remember. In addition, CT revealed sub -acute L rib fractures. Patient has a hx of a renal transplant in 1998, CVA and IDDM. *acute back pain/L1 compression fx -noted on scan -cont scheduled APAP -consider a kyphoplasty but he is on Apixaban- call into neurosurgery to get their guidance -Lidoderm patch -patient is c/o worsening back pain today *rib fx -1st through 4th -also causing pain *gait instability -several falls, noted to have a left clavicular fx *IDDM - increased his long acting w improvement -resumed home meds *Hyperkalemia -resolved *hx of renal tx -resumed home meds -avoid any nephrotoxic medications -creat is stable -he may need further interventions in regards to his back and pvd-nephrology to see (appreciate Dr Fitzgerald *PVD with transmetatarsal amputation -Dr Bryant to further evaluate -studies ordered for arterial flow *CVA -lacunar infarct noted int november of this year *DVT prophylaxis: Apixaban *plan: neurosurgery to see, nephrology to see-appreciate their involvement Subjective: Terrence is having more pain in his back today. Objective: Vital Signs Temp Pulse Resp BP Pulse Ox 36.4 C 66 18 170/84 H 95 02/16/18 07:19 02/16/18 07:55 02/16/18 07:55 02/16/18 07:55 02/16/18 07:55 Laboratory Results 02/15/18 04:31 02/16/18 04:54 02/15/18 02/16/18 02/17/18 05:59 05:59 05:59 Intake Total 170 400 240 Output Total 100 825 150 Balance 70 -425 90 PT 14.8 SEC (12.0-15.0) 02/14/18 19:35 INR 1.14 (0.83-1.16) 02/14/18 19:35 - Physical Exam Constitutional: chronically ill appearing, uncomfortable, No not in pain Eyes: PERRL Ears, Nose, Mouth, Throat: hearing normal Cardiovascular: regular rate and rhythym Respiratory: no respiratory distress, reduced air movement Skin: warm Musculoskeletal: generalized weakness Neurologic: AAOx3 Psychiatric: interacting appropriately ICD10 Worksheet Patient Problems: Problems Problem Status Onset Closed left clavicular fracture Acute Compression fracture of L1 lumbar vertebra Acute Intractable back pain Acute Multiple fractures of ribs, left side, initial encounter for closed fracture Acute Unable to ambulate Acute Acute ischemic stroke Acute Clavicle fracture Acute Dyspnea Acute Elevated troponin Acute Head injury due to trauma Acute Prerenal azotemia Acute Thrombocytosis Acute
[2018-02-16] MEDS: ALFUZOSIN HCL 10 MG PO SCH (09:23)
[2018-02-16] MEDS: CARVEDILOL 6.25 MG TAB PO SCH ×2 (09:38→18:14)
[2018-02-16] MEDS: oxyCODONE IR 5 MG TAB PO PRN ×3 (09:39→18:13)
[2018-02-16] MEDS: ACETAMINOPHEN 500 MG TAB PO SCH ×3 (09:41→23:11)
[2018-02-16] MEDS: SENNOSIDES/DOCUSATE SODIUM TAB PO SCH ×2 (09:45→23:12)
[2018-02-16] MEDS: PANTOPRAZOLE SODIUM 40 MG TAB PO SCH (09:46)
[2018-02-16] MEDS: FINASTERIDE 5 MG TAB PO SCH (09:46)
[2018-02-16] MEDS: ATORVASTATIN CALCIUM 40 MG TAB PO SCH (09:46)
[2018-02-16] MEDS: predniSONE 5 MG TAB PO SCH (09:46)
[2018-02-16] MEDS: CHOLECALCIFEROL VIT D3 1,000 UNITS TAB PO SCH (09:46)
[2018-02-16] MEDS: APIXABAN 5 MG TAB PO SCH ×2 (09:46→23:11)
[2018-02-16] MEDS: URSODIOL 300 MG CAP PO SCH ×2 (09:46→23:12)
[2018-02-16] MEDS: ALLOPURINOL 100 MG TAB PO SCH (09:46)
[2018-02-16] MEDS: INSULIN GLARGINE 100 UNITS/ML UNIT SC SCH (09:47)
[2018-02-16] MEDS: CYCLOSPORINE MODIFIED 25 MG PO SCH ×2 (09:48→23:12)
[2018-02-16] MEDS: MYCOPHENOLATE MOFETIL 250 MG CAP PO SCH ×2 (09:48→23:13)
[2018-02-16] MEDS: LIDOCAINE 4%/MENTHOL 1% PATCH TD SCH (09:48)
[2018-02-16] MEDS: LATANOPROST 0.005% 2.5 ML OPHT DROPS EACHEYE SCH (09:51)
--- NOTE | 2018-02-16 11:37 | PDCONSULT ---
Pug Mill Operator Note: Assessment/Plan: h/o renal transplant: Cr is better than recent baseline at 0.9. - Continue home IS regimen of cyclosporine, Cellcept and prednisone. - Will continue to monitor, particularly in setting of possible procedures in near future. - Avoid hypotension and nephrotoxins. Hyperkalemia: K high yesterday but repeat today is down to 4.6, will continue to monitor. HTN: BP ok on Coreg, will continue to monitor. Anemia: Hgb ok, no need for epo, will continue to monitor. Thank you for the interesting consult. Nephrology will continue to follow, please call with any additional questions or concerns. H & P Stated Complaint: bilateral lower back pain, no fall, x4 days, worse when standing Time Seen by Provider: 02/14/18 19:17 HPI/ROS: HPI: Mr. 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 Kearney in 03/2017. Pt had a recent fall on 01/26 while in rehab and was found to have a L clavicular fracture, was discharged home per his wishes. He then developed pain that worsened 5 days prior to presentation in his lower back, became quite severe. He was found to have an L1 compression fracture. He has not had any additional episodes of trauma since that fall. He will be evaluated by neurosurgery, may require further procedures. ROS: positive for back pain, rest of 10-point ROS negative - Personal History Current Tetanus Diphtheria and Acellular Pertussis (TDAP): Yes - Medical/Surgical History Hx Asthma: No Hx Chronic Respiratory Disease: No Hx Diabetes: Yes Hx Cardiac Disease: Yes Hx Renal Disease: Yes Hx Cirrhosis: No Hx Alcoholism: No Hx HIV/AIDS: No Hx Splenectomy or Spleen Trauma: No Other PMH: kidney transplant, afib,dm,pacemaker, L arm fistula, blind,duodenal ulcer, L foot amputation, gallbladder drain placed, orthostatic hypotension - Family History Significant Family History: No pertinent family hx - Social History Smoking Status: Former smoker - Physical Exam Exam: General: alert and oriented, no acute distress Eyes; EOMI, sclerae anicteric OP: Clear, MMM Neck: supple, no thyromegaly CV: RRR, no edema BLE Resp: CTA bilat, nonlabored respirations Abd: Soft, NT/ND Neuro: CN II-XII grossly intact, no asterixis Psych: cooperative, appropriate mood and affect Graft: RLQ with no TTP Constitutional: Initial Vital Signs Temperature (C) 36.8 C 02/14/18 19:14 Heart Rate 70 02/14/18 19:14 Respiratory Rate 18 02/14/18 19:14 Blood Pressure 122/61 H 18 19:14 O2 Sat (%) 97 02/14/18 19:14 O2 Delivery Mode Room Air Allergies/Adverse Reactions: No Known Allergies Allergy (Verified 02/14/18 19:12) Home Medications: Medication Instructions Recorded Cholecalciferol Vit D3 [Vitamin D3 1,000 units PO DAILY 09/10/17 (*)] Herbals/Supplements -Info Only 1 ea PO DAILY 09/10/17 Acetaminophen [Tylenol 325mg (*)] 650 mg PO Q4HRS PRN tab 12/01/17 Alfuzosin HCl [Uroxatral] 10 mg PO DAILY #30 tab.er.24h 12/12/17 Allopurinol [Allopurinol 100 MG 100 mg PO DAILY #30 tab 12/12/17 (*)] Apixaban [Eliquis] 5 mg PO BID #60 tab 12/12/17 Atorvastatin Calcium [Lipitor 40 40 mg PO DAILY #30 tab 12/12/17 mg (*)] Carvedilol [Coreg (*)] 3.125 mg PO BIDMEAL #15 tab 12/12/17 Finasteride [Proscar 5 MG (*)] 5 mg PO DAILY #30 tab 12/12/17 Insulin Aspart [Novolog Flexpen] 0 unit SQ AC #1 insuln.pen 12/12/17 Insulin Glargine [Lantus Syringe] 16 units SC DAILY #1 vial 12/12/17 Latanoprost 0.005% [Xalatan 0.005% 1 drops EACHEYE DAILY #1 opht.btl 12/12/17 (*)] Mycophenolate Mofetil [Cellcept] 500 mg PO BID #60 tablet 12/12/17 Pantoprazole Sodium [Protonix 40mg 40 mg PO DAILY #30 tab 12/12/17 (*)] Ursodiol [Actigall 300MG (*)] 300 mg PO BID #60 cap 12/12/17 cycloSPORINE, MODIFIED 25 mg PO BID #60 capsule 12/12/17 [Cyclosporine Modified] guaiFENesin [Mucinex 600 MG (*)] 600 mg PO BID tab.er 12/12/17 predniSONE 5 mg PO DAILY #30 tab 12/12/17 Bacitracin Ophthalmic 1 yaneth LEFTEYE TID #1 opht.oint 12/13/17 Bacitracin Ophthalmic 1 yaneth OP TID 5 Days #1 opht.oint 12/13/17 Hydrocodone/APAP 5/325 [Nye 0.5 tab PO Q6 PRN #10 tab 01/26/18 5/325 (RX)] Lab and Imaging 02/15/18 04:31 02/16/18 04:54 WBC 8.96 10^3/uL (3.80-9.50) 02/15/18 04:31 RBC 4.24 10^6/uL (4.40-6.38) L 02/15/18 04:31 Hgb 12.3 g/dL (13.7-17.5) L 02/15/18 04:31 Hct 38.0 % (40.0-51.0) L 02/15/18 04:31 MCV 89.6 fL (81.5-99.8) 02/15/18 04:31 MCH 29.0 pg (27.9-34.1) 02/15/18 04:31 MCHC 32.4 g/dL (32.4-36.7) 02/15/18 04:31 RDW 18.9 % (11.5-15.2) H 02/15/18 04:31 Plt Count 432 10^3/uL (150-400) H 02/15/18 04:31 MPV 10.4 fL (8.7-11.7) 02/15/18 04:31 Neut % (Auto) 76.4 % (39.3-74.2) H 02/15/18 04:31 Lymph % (Auto) 10.7 % (15.0-45.0) L 02/15/18 04:31 [place] % (Auto) 10.6 % (4.5-13.0) 02/15/18 04:31 Eos % (Auto) 1.1 % (0.6-7.6) 02/15/18 04:31 Baso % (Auto) 0.4 % (0.3-1.7) 02/15/18 04:31 Nucleat RBC Rel Count 0.0 % (0.0-0.2) 02/15/18 04:31 Absolute Neuts (auto) 6.84 10^3/uL (1.70-6.50) H 02/15/18 04:31 Absolute Lymphs (auto) 0.96 10^3/uL (1.00-3.00) L 02/15/18 04:31 Absolute Monos (auto) 0.95 10^3/uL (0.30-0.80) H 02/15/18 04:31 Absolute Eos (auto) 0.10 10^3/uL (0.03-0.40) 02/15/18 04:31 Absolute Basos (auto) 0.04 10^3/uL (0.02-0.10) 02/15/18 04:31 Absolute Nucleated RBC 0.00 10^3/uL (0-0.01) 02/15/18 04:31 Immature Gran % 0.8 % (0.0-1.1) 02/15/18 04:31 Immature Gran # 0.07 10^3/uL (0.00-0.10) 02/15/18 04:31 PT 14.8 SEC (12.0-15.0) 02/14/18 19:35 INR 1.14 (0.83-1.16) 02/14/18 19:35 APTT 34.6 SEC (23.0-38.0) 02/14/18 19:35 Sodium 137 mEq/L (135-145) 02/15/18 04:31 Potassium 4.6 mEq/L (3.3-5.0) 02/16/18 04:54 Chloride 105 mEq/L (97-110) 02/15/18 04:31 Carbon Dioxide 20 mEq/l (22-31) L 02/15/18 04:31 Anion Gap 12 mEq/L (6-14) 02/15/18 04:31 BUN 38 mg/dL (7-23) H 02/15/18 04:31 Creatinine 0.9 mg/dL (0.7-1.3) 02/15/18 04:31 Estimated GFR > 60 02/15/18 04:31 Glucose 334 mg/dL (70-100) H 02/15/18 04:31 POC Glucose 178 mg/dL (70-100) H 02/16/18 07:30 Calcium 8.7 mg/dL (8.5-10.4) 02/15/18 04:31
--- NOTE | 2018-02-16 14:14 | GCON ---
CHIEF COMPLAINT: Back pain and compression fracture. HISTORY OF PRESENT ILLNESS: Mr. Siu is an 82-year-old male patient with a past medical history significant for atrial fibrillation, status post renal transplant, and recent CVA. He suffered a stroke in November of this past year and continued to have some arm numbness due to this. He was in rehab on January 26 and tried to grab something with his left hand and then fell onto his left side. He was seen in the emergency room and was diagnosed with a left clavicular fracture and was discharged home per his wishes. He did well for some time, but over the past 5 days he has had more severe lower back pain. He underwent a CT of the spine, which showed a new L1 compression fracture. Patient denies any recent trauma to his back. CT also demonstrated subacute left-sided rib fractures which may be related to his fall back in December. Patient has had persistent pain over his lower back and has not been able to get very comfortable in bed or ambulate because of the pain. The neurosurgery service is subsequently consulted for further evaluation. On examination at this time, patient is resting in bed. He denies any significant back pain at this time but states he will have a lot of pain when he rolls to his side. I asked the patient if he felt if his pain was more related to his ribs or to his back, and he stated that it definitely seems to be from his back. Patient denies any new weakness in his lower extremities along with the radicular pain, numbness, or tingling. 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 ALLERGIES: The patient has no known drug allergies. HOME MEDICATIONS: Include vitamin D3, herbal supplements. PAST MEDICAL HISTORY: Significant for atrial fibrillation, strokes, diabetes type 1. Patient has history of end-stage renal disease, and he is status post transplant in 1998. SURGICAL HISTORY: Patient underwent a renal transplant in 1998. FAMILY HISTORY: Positive for diabetes type 1. He denies any family history of renal disease. SOCIAL HISTORY: Patient is a former smoker. REVIEW OF SYSTEMS: Please see above mentioned in the HPI, otherwise negative. PHYSICAL EXAMINATION: VITAL SIGNS: Blood pressure is 130/67, heart rate is 61 , respiratory rate is 12, O2 saturation is 93% on room air, temperature 37.6 Celsius. GENERAL: This is an elderly male patient who was resting in bed. He appears comfortable, in no acute distress. He answers all questions appropriately. Cranial nerves 2-12 are grossly intact. Patient moves all extremities without focal deficits noted. Motor examination of bilateral lower extremities is 5/5 for hip flexion, flexion and extension, and plantar and dorsiflexion. Patient is tender to palpation over his spine at the thoracolumbar junction. LABORATORY: White blood cells 8.96, red blood cells 4.24, hemoglobin 12.3, hematocrit is 38.0, RDW is 18.9, platelet count is 432. Coagulation: PT is 14.8, INR is 1.14, APTT is 34.6, chloride is 4.6, glucose 123. IMAGING: CT of the thoracic and lumbar spine without contrast, impression: Segmentation variation with lumbarized S1 segment and rudimentary disk space at S1-S2. Acute/subacute mild L1 compression fracture with less than 20% height loss. No retropulsed fragment. Old/subacute fracture of the S5 segment. Minimally displaced acute/subacute left 1st through 4th rib fractures. Chest x-ray: Stable chest with multiple left rib fractures and a distal left clavicle fracture. ASSESSMENT: This is an 82-year-old male patient presenting with back pain and a possible new compression fracture at L1. PLAN: I have seen and examined the patient today and reviewed the patient's imaging with Dr. Walker. Patient does appear tender over the thoracolumbar spine. However, I have reviewed the patient's images with Dr. Walker, who feels that his fracture may be more chronic in nature. Patient is currently receiving pain management. He has not been able to do well getting out of bed. We would like to obtain an MRI of the lumbar spine to further evaluate this fracture. If it is acute, he may be a candidate for kyphoplasty, but patient is currently on a blood thinner, so we would need to evaluate when it would be safe to perform this procedure. I will order an MRI of the lumbar spine, and neurosurgery will continue to follow along with this patient. Please contact the neurosurgery service for any additional questions or concerns. NEUROSURGERY ATTENDING NOTE Patient seen and his images reviewed. Agree with the plan to obtain an MRI and then determine treatment (bracing versus surgery). /[id number]/MODL MTDD
--- NOTE | 2018-02-16 14:57 | ASMTCMCOM ---
CM Note CM Note Notes: PT/OT rec SNF. Spoke with pt and Miranda, plan for d/c is [facility] where pt has been accepted. CM to follow. Date Signed: 02/16/2018 02:56 PM Electronically Signed By:MICAELA Shaver
[2018-02-16] MEDS ORDERED: NS 500 ML IV ONE (14:58)
[2018-02-17] MEDS: oxyCODONE IR 5 MG TAB PO PRN ×4 (02:01→17:46)
[2018-02-17] MEDS: PATCH REMOVAL 1 EA PATCH TD SCH ×2 (02:03→22:11)
[2018-02-17] MEDS: D50W 25 GM/50 ML SYR IVP PRN (05:45)
--- NOTE | 2018-02-17 06:51 | NEUSURGPN ---
Assessment/Plan: Assessment: 82 yo male that is s/p fall with with numerous medical issues as well as a clavicle fracture/multiple rib fractures and a acute vs subacute L1 compression fracture Plan: -admitted to and working with Mr Siu regarding his multiple medical issues -L1 compression fracture could be acute or subacute -pending MRI of the L spine will determine the chronicity of the fracture of L1- awaiting approval with pacemaker that patient has per RN -PT/OT-CPM -continue with current pain management -will likely trial bracing -call with any questions or concerns -pt understands and agrees -d/w Dr Walker Subjective: No new events or complaints. No f/c/n/v/d. No hartman/neck/chest/abd or gu complaints. Pt states that he still has back pain Objective: AAO x 3, PERRLA/EOMI no droop CN 2-12 grossly intact +lt touch 5/5 BUE/BLE = except for left EHL testing due to mid foot amputation hx +cms/nv intact x 4 Neuro Check Frequency: per routine Urinary Catheter in Place: No - Physician Discussed Patient with : Denise Neurosurgery Physical Exam - Vitals, I&O, Labs I and O 02/16/18 02/17/18 02/18/18 05:59 05:59 05:59 Intake Total 400 490 Output Total 825 550 Balance -425 -60 Intake: Oral (ml) 400 240 IV Infused (ml) 250 Ns 500 ml @ 100 mls/hr IV 250 ONCE ONE Rx#:[id number] Output: Urine (ml) 825 550 Catheter 300 Urinal 825 250 Other: Intake Quantity Yes Yes Sufficient Number of Voids Catheter 3 Urinal 1 1 Post Void Residual Scan Volume (ml) Urinal 650 Vital Signs Temp Pulse Resp BP Pulse Ox 36.9 C 64 18 163/74 H 94 02/17/18 03:41 02/17/18 03:41 02/17/18 03:41 02/17/18 03:41 02/17/18 03:41 Laboratory Results 02/17/18 04:20 02/17/18 04:20 ICD10 Worksheet Patient Problems: Problems Problem Status Onset Closed left clavicular fracture Acute Compression fracture of L1 lumbar vertebra Acute Intractable back pain Acute Multiple fractures of ribs, left side, initial encounter for closed fracture Acute Unable to ambulate Acute Acute ischemic stroke Acute Clavicle fracture Acute Dyspnea Acute Elevated troponin Acute Head injury due to trauma Acute Prerenal azotemia Acute Thrombocytosis Acute
[2018-02-17] MEDS: SENNOSIDES/DOCUSATE SODIUM TAB PO SCH ×2 (08:40→21:05)
[2018-02-17] MEDS: ALLOPURINOL 100 MG TAB PO SCH (08:41)
[2018-02-17] MEDS: URSODIOL 300 MG CAP PO SCH ×2 (08:41→21:06)
[2018-02-17] MEDS: CYCLOSPORINE MODIFIED 25 MG PO SCH ×2 (08:41→21:07)
[2018-02-17] MEDS: CHOLECALCIFEROL VIT D3 1,000 UNITS TAB PO SCH (08:41)
[2018-02-17] MEDS: MYCOPHENOLATE MOFETIL 250 MG CAP PO SCH ×2 (08:41→21:06)
[2018-02-17] MEDS: ATORVASTATIN CALCIUM 40 MG TAB PO SCH (08:41)
[2018-02-17] MEDS: CARVEDILOL 6.25 MG TAB PO SCH ×2 (08:41→17:46)
[2018-02-17] MEDS: APIXABAN 5 MG TAB PO SCH ×2 (08:41→21:06)
[2018-02-17] MEDS: ACETAMINOPHEN 500 MG TAB PO SCH ×3 (08:44→23:24)
[2018-02-17] MEDS: PANTOPRAZOLE SODIUM 40 MG TAB PO SCH (08:45)
[2018-02-17] MEDS: predniSONE 5 MG TAB PO SCH (08:45)
[2018-02-17] MEDS: FINASTERIDE 5 MG TAB PO SCH (08:45)
[2018-02-17] MEDS: ALFUZOSIN HCL 10 MG PO SCH (08:57)
[2018-02-17] MEDS: INSULIN GLARGINE 100 UNITS/ML UNIT SC SCH (08:58)
[2018-02-17] MEDS: INSULIN LISPRO 100 UNIT/ML SC SCH ×3 (08:58→18:29)
[2018-02-17] MEDS: LATANOPROST 0.005% 2.5 ML OPHT DROPS EACHEYE SCH (10:50)
[2018-02-17] MEDS: LIDOCAINE 4%/MENTHOL 1% PATCH TD SCH (10:50)
--- NOTE | 2018-02-17 11:35 | SOAPPROG ---
JANELLE Progress Note Assessment/Plan: Assessment: I've met Terrence in the past. He relocated a year ago from the [place] area. 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 1. Renal Allograft Functioning well. 2. Hyperkalemia Resolved. 3. Hypoglycemia I will stop his lantus, and we will cover with SSI 4. Fx's Conservative management, although he is immobilized with pain at present time. Plan: 02/17/18 11:32 Subjective: Very frail, weak Objective: Vital Signs Temp Pulse Resp BP Pulse Ox 36.9 C 63 18 160/79 H 94 02/17/18 03:41 02/17/18 08:41 02/17/18 03:41 02/17/18 08:41 02/17/18 03:41 Laboratory Results 02/17/18 04:20 02/17/18 04:20 02/16/18 02/17/18 02/18/18 05:59 05:59 05:59 Intake Total 400 490 Output Total 825 550 Balance -425 -60 PT 14.8 SEC (12.0-15.0) 02/14/18 19:35 INR 1.14 (0.83-1.16) 02/14/18 19:35 Physical Exam - Physical Exam General Appearance: cachetic Respiratory: lungs clear Cardiac/Chest: regular rate, rhythm Extremities: normal inspection Neuro/Psych: alert ICD10 Worksheet Patient Problems: Problems Problem Status Onset Closed left clavicular fracture Acute Compression fracture of L1 lumbar vertebra Acute Intractable back pain Acute Multiple fractures of ribs, left side, initial encounter for closed fracture Acute Unable to ambulate Acute Acute ischemic stroke Acute Clavicle fracture Acute Dyspnea Acute Elevated troponin Acute Head injury due to trauma Acute Prerenal azotemia Acute Thrombocytosis Acute
--- NOTE | 2018-02-17 12:14 | HOSPPROG ---
Hospitalist Progress Note Assessment/Plan: Patient is 82 y/o man who presented to the ER with back pain. Was at Rehab on and suffered a fall-was seen in the ED and noted to have a left clavicular fx -he was then dc home per his wishes. He did well but over the past 5 days bit he developed severe low back pain without loss of bladder/bowel control. In the ED evaluation was notable for new L1 compression fracture. The patient denies any trauma to his back that he can remember. In addition, CT revealed sub -acute L rib fractures. Patient has a hx of a renal transplant in 1998, CVA and IDDM.First encounter, chart reviewed. D/W Dr smallwood. *acute back pain/L1 compression fx -noted on scan -cont scheduled APAP -consider a kyphoplasty but he is on Apixaban -Lidoderm patch -patient is c/o back pain -MRI ordered, pt with pacemaker -brace per nsg *rib fx -1st through 4th -also causing pain *gait instability -several falls, noted to have a left clavicular fx *IDDM - increased his long acting w improvement -resumed home meds *Hyperkalemia -resolved *hx of renal tx -resumed home meds -avoid any nephrotoxic medications -creat is stable -he may need further interventions in regards to his back and pvd-nephrology following *PVD with transmetatarsal amputation -Dr Bryant to further evaluate -studies ordered for arterial flow *CVA -lacunar infarct noted int november of this year *DVT prophylaxis: Apixaban *plan:await further evaluation brace PT/OT Subjective: Tired today. Having significant back pain with movement. Objective: Vital Signs Temp Pulse Resp BP Pulse Ox 36.9 C 63 18 160/79 H 94 02/17/18 03:41 02/17/18 08:41 02/17/18 03:41 02/17/18 08:41 02/17/18 03:41 Laboratory Results 02/17/18 04:20 02/17/18 04:20 02/16/18 02/17/18 02/18/18 05:59 05:59 05:59 Intake Total 400 490 Output Total 825 550 Balance -425 -60 PT 14.8 SEC (12.0-15.0) 10/17/18 19:35 INR 1.14 (0.83-1.16) 02/14/18 19:35 - Physical Exam Constitutional: chronically ill appearing, uncomfortable, cachectic Eyes: PERRL, anicteric sclera, EOMI Ears, Nose, Mouth, Throat: moist mucous membranes, hearing normal, ears appear normal Cardiovascular: No JVD, No tachycardia, No edema Respiratory: no respiratory distress, no rales or rhonchi, reduced air movement Gastrointestinal: normoactive bowel sounds, No tenderness, No ascites Skin: warm, normal color, No mottled Musculoskeletal: pain with ROM, muscular tenderness, abnormal gait, generalized weakness Psychiatric: not anxious, not encephalopathic, poor insight, poor judgement, poor memory ICD10 Worksheet Patient Problems: Problems Problem Status Onset Dyspnea Acute Elevated troponin Acute Thrombocytosis Acute Prerenal azotemia Acute Acute ischemic stroke Acute Clavicle fracture Acute Head injury due to trauma Acute Unable to ambulate Acute Closed left clavicular fracture Acute Intractable back pain Acute Multiple fractures of ribs, left side, initial encounter for closed fracture Acute Compression fracture of L1 lumbar vertebra Acute
[2018-02-18] MEDS: oxyCODONE IR 5 MG TAB PO PRN ×5 (00:53→19:51)
[2018-02-18] MEDS: CYCLOBENZAPRINE 10 MG TAB PO PRN ×3 (04:49→23:28)
--- NOTE | 2018-02-18 07:14 | NEUSURGPN ---
Assessment/Plan: Assessment: 82 yo male that is s/p fall with with numerous medical issues as well as a clavicle fracture/multiple rib fractures and a acute vs subacute L1 compression fracture Plan: -admitted to and working with Mr Siu regarding his multiple medical issues -L1 compression fracture could be acute or subacute-we had hoped to get a MRI but he has a pacemaker. I spoke with Mr Siu regarding surgery (kyphoplasty) vs bracing and he wants to proceed with bracing -pending MRI of the L spine but unsure with pacemaker that patient has if he will be able to get this study -PT/OT-CPM -continue with current pain management -will trial bracing per request of pt -call with any questions or concerns -pt understands and agrees -d/w Dr Walker Subjective: Awake and alert. NAD. Pt with continued rib/clavicle and lower back pain. No hartman/neck/chest/abd or gu complaints. No f/c/n/v/d. Objective: AAO x 3, PERRLA/EOMI no droop CN 2-12 grossly intact +lt touch 5/5 BUE/BLE = except for left EHL not tested due to mid foot amputation hx +cms/nv intact x 4 Neuro Check Frequency: per routine - Physician Discussed Patient with : [facility] Physical Exam - Vitals, I&O, Labs I and O 02/17/18 02/18/18 02/19/18 05:59 05:59 05:59 Intake Total 490 200 Output Total 550 400 Balance -60 -200 Intake: Oral (ml) 240 200 IV Infused (ml) 250 Ns 500 ml @ 100 mls/hr IV 250 ONCE ONE Rx#:[id number] Output: Urine (ml) 550 400 Catheter 300 200 Urinal 250 200 Other: Intake Quantity Yes Sufficient Number of Voids Catheter 3 2 Toilet 1 Urinal 1 1 Post Void Residual Scan Volume (ml) Urinal 650 Vital Signs Temp Pulse Resp BP Pulse Ox 36.4 C 65 28 H 175/89 H 97 02/18/18 04:00 02/18/18 04:00 02/18/18 04:00 02/18/18 04:00 02/18/18 04:00 Laboratory Results 02/17/18 04:20 02/18/18 04:25 ICD10 Worksheet Patient Problems: Problems Problem Status Onset Closed left clavicular fracture Acute Compression fracture of L1 lumbar vertebra Acute Intractable back pain Acute Multiple fractures of ribs, left side, initial encounter for closed fracture Acute Unable to ambulate Acute Acute ischemic stroke Acute Clavicle fracture Acute Dyspnea Acute Elevated troponin Acute Head injury due to trauma Acute Prerenal azotemia Acute Thrombocytosis Acute
[2018-02-18] MEDS: CHOLECALCIFEROL VIT D3 1,000 UNITS TAB PO SCH (08:36)
[2018-02-18] MEDS: URSODIOL 300 MG CAP PO SCH ×2 (08:36→21:23)
[2018-02-18] MEDS: MYCOPHENOLATE MOFETIL 250 MG CAP PO SCH ×2 (08:36→22:29)
[2018-02-18] MEDS: ALLOPURINOL 100 MG TAB PO SCH (08:36)
[2018-02-18] MEDS: SENNOSIDES/DOCUSATE SODIUM TAB PO SCH ×2 (08:36→21:21)
[2018-02-18] MEDS: ACETAMINOPHEN 500 MG TAB PO SCH ×3 (08:37→21:20)
[2018-02-18] MEDS: FINASTERIDE 5 MG TAB PO SCH (08:37)
[2018-02-18] MEDS: CARVEDILOL 6.25 MG TAB PO SCH ×2 (08:37→18:02)
[2018-02-18] MEDS: ATORVASTATIN CALCIUM 40 MG TAB PO SCH (08:37)
[2018-02-18] MEDS: PANTOPRAZOLE SODIUM 40 MG TAB PO SCH (08:37)
[2018-02-18] MEDS: CYCLOSPORINE MODIFIED 25 MG PO SCH ×2 (08:37→21:22)
[2018-02-18] MEDS: APIXABAN 5 MG TAB PO SCH (08:37)
[2018-02-18] MEDS: predniSONE 5 MG TAB PO SCH (08:37)
[2018-02-18] MEDS: INSULIN LISPRO 100 UNIT/ML SC SCH ×3 (08:38→18:03)
[2018-02-18] MEDS: LIDOCAINE 4%/MENTHOL 1% PATCH TD SCH (08:38)
[2018-02-18] MEDS: LATANOPROST 0.005% 2.5 ML OPHT DROPS EACHEYE SCH (08:39)
[2018-02-18] MEDS: ALFUZOSIN HCL 10 MG PO SCH (08:41)
--- NOTE | 2018-02-18 09:45 | SOAPPROG ---
SOAP Progress Note Assessment/Plan: Assessment: 82 MALE ADMIT FOR BACK PAIN/ PT HAD A FALL 3 WEEKS AGO BUT NO INJURIES FOUND EXCEPT LEFT CLAV FX NOW CO LOWER BACKPAIN FOR 3 DAYS/ NO ADDITIONAL TRAUMA CT SHOWS LEFT 1-4 RIB FXs, MILD L1 COMPRESSION FX HEENT NONICTERIC, NO BRUITS, NO ADENOPATHY CHEST CLEAR COR RR ABD SOFT, NONTENDER, NO MASSES GEN OK EXTREM: ABSENT PEDAL PULSES/ LEFT TRANSMET AMPUTATION IMPR: L1 FX/ LEFT 1-4 RIB FXs/ SIGNIFICANT PVD 2/2 DM Plan:NS CONSULT FOR BACK BRACE/ VASCULAR EVAL 02/14/18 22:31 02/18/18 09:43 STILL COMPLAINS OF BACK PAIN WHICH IS BEING WORKED UP BY NEUROSURGERY AND HE WILL BE PLACED IN A BACK SPLINT UNABLE TO COMPLETE HIS BACK MRI PERIPHERAL VASCULAR STATUS SEEMS TO BE STABLE. PER HIS ABIS AND VASCULAR TRACINGS HE SHOULD HAVE ADEQUATE BLOOD FLOW TO HIS RIGHT FOOT FOR HEALING AT [facility] NO INDICATIONS FOR CT A AT THIS POINT BUT WOULD LIKE TO GET THE DISC [facility] [place] [facility] CHEST CLEAR AND NONTENDER RIBS COR REGULAR RHYTHM WITHOUT MURMURS ABDOMEN SOFT NONTENDER EXTREMITIES SMALL ULCERATION IS RIGHT GREAT TOE, STATUS POST LEFT TRANSMETATARSAL AMPUTATION ABIS GREATER THAN 1 BILATERALLY AND PULSATILE FLOW AT THE METATARSAL LEVEL BILATERALLY ON THE VASCULAR EXAM Objective: Vital Signs Temp Pulse Resp BP Pulse Ox 36.6 C 70 17 173/93 H 99 02/18/18 07:44 02/18/18 08:37 02/18/18 07:44 02/18/18 08:37 02/18/18 07:44 Laboratory Results 02/17/18 04:20 02/18/18 04:25 02/17/18 02/18/18 02/19/18 05:59 05:59 05:59 Intake Total 490 200 Output Total 550 400 50 Balance -60 -200 -50 PT 14.8 SEC (12.0-15.0) 02/14/18 19:35 INR 1.14 (0.83-1.16) 02/14/18 19:35 ICD10 Worksheet Patient Problems: Problems Problem Status Onset Closed left clavicular fracture Acute Compression fracture of L1 lumbar vertebra Acute Intractable back pain Acute Multiple fractures of ribs, left side, initial encounter for closed fracture Acute Unable to ambulate Acute Acute ischemic stroke Acute Clavicle fracture Acute Dyspnea Acute Elevated troponin Acute Head injury due to trauma Acute Prerenal azotemia Acute Thrombocytosis Acute
--- NOTE | 2018-02-18 09:48 | SOAPPROG ---
SOAP Progress Note Assessment/Plan: Assessment: 82 MALE ADMIT FOR BACK PAIN/ PT HAD A FALL 3 WEEKS AGO BUT NO INJURIES FOUND EXCEPT LEFT CLAV FX NOW CO LOWER BACKPAIN FOR 3 DAYS/ NO ADDITIONAL TRAUMA CT SHOWS LEFT 1-4 RIB FXs, MILD L1 COMPRESSION FX HEENT NONICTERIC, NO BRUITS, NO ADENOPATHY CHEST CLEAR COR RR ABD SOFT, NONTENDER, NO MASSES GEN OK EXTREM: ABSENT PEDAL PULSES/ LEFT TRANSMET AMPUTATION IMPR: L1 FX/ LEFT 1-4 RIB FXs/ SIGNIFICANT PVD 2/2 DM Plan:NS CONSULT FOR BACK BRACE/ VASCULAR EVAL 02/14/18 22:31 02/18/18 09:43 STILL COMPLAINS OF BACK PAIN WHICH IS BEING WORKED UP BY NEUROSURGERY AND HE WILL BE PLACED IN A BACK SPLINT UNABLE TO COMPLETE HIS BACK MRI PERIPHERAL VASCULAR STATUS SEEMS TO BE STABLE. PER HIS ABIS AND VASCULAR TRACINGS HE SHOULD HAVE ADEQUATE BLOOD FLOW TO HIS RIGHT FOOT FOR HEALING AT [facility] NO INDICATIONS FOR CT A AT THIS POINT BUT WOULD LIKE TO GET THE DISC FROM [facility] FOR EVALUATION CHEST CLEAR AND NONTENDER RIBS COR REGULAR RHYTHM WITHOUT MURMURS ABDOMEN SOFT NONTENDER EXTREMITIES SMALL ULCERATION IS RIGHT GREAT TOE, STATUS POST LEFT TRANSMETATARSAL AMPUTATION ABIS GREATER THAN 1 BILATERALLY AND PULSATILE FLOW AT THE METATARSAL LEVEL BILATERALLY ON THE VASCULAR EXAM 02/18/18 09:46 STABLE FROM A PERIPHERAL VASCULAR STANDPOINT/STILL COMPLAINING OF BACK PAIN WHICH IS UNDER EVALUATION BY NEUROSURGERY/RIBS ARE NONTENDER AND BREATH SOUNDS ARE EQUAL CHEST X-RAY IS CLEAR WITH GOOD EXPANSION COR REGULAR RHYTHM ABDOMEN SOFT NONTENDER ROOFING LABORER OVER THE UPPER LUMBAR VERTEBRA Objective: Vital Signs Temp Pulse Resp BP Pulse Ox 36.6 C 70 17 173/93 H 99 02/18/18 07:44 02/18/18 08:37 02/18/18 07:44 02/18/18 08:37 02/18/18 07:44 Laboratory Results 02/17/18 04:20 02/18/18 04:25 02/17/18 02/18/18 02/19/18 05:59 05:59 05:59 Intake Total 490 200 Output Total 550 400 50 Balance -60 -200 -50 PT 14.8 SEC (12.0-15.0) 02/14/18 19:35 INR 1.14 (0.83-1.16) 02/14/18 19:35 ICD10 Worksheet Patient Problems: Problems Problem Status Onset Closed left clavicular fracture Acute Compression fracture of L1 lumbar vertebra Acute Intractable back pain Acute Multiple fractures of ribs, left side, initial encounter for closed fracture Acute Unable to ambulate Acute Acute ischemic stroke Acute Clavicle fracture Acute Dyspnea Acute Elevated troponin Acute Head injury due to trauma Acute Prerenal azotemia Acute Thrombocytosis Acute
--- NOTE | 2018-02-18 10:42 | SOAPPROG ---
JANELLE Progress Note Assessment/Plan: Assessment: I've met Terrence in the past. He relocated a year ago from the [place] area. 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 1. Renal Allograft Functioning well. 2. Hyperkalemia Resolved. 3. Hypoglycemia On SSI 4. Fx's Conservative management, although he is immobilized with pain at present time. Will need outpatient rehab Plan: 02/17/18 11:32 02/18/18 10:41 Subjective: MS better, but still in pain Objective: Vital Signs Temp Pulse Resp BP Pulse Ox 36.6 C 70 17 173/93 H 99 02/18/18 07:44 02/18/18 08:37 02/18/18 07:44 02/18/18 08:37 02/18/18 07:44 Laboratory Results 02/17/18 04:20 02/18/18 04:25 02/17/18 02/18/18 02/19/18 05:59 05:59 05:59 Intake Total 490 200 Output Total 550 400 50 Balance -60 -200 -50 PT 14.8 SEC (12.0-15.0) 02/14/18 19:35 INR 1.14 (0.83-1.16) 02/14/18 19:35 Physical Exam - Physical Exam General Appearance: mild distress, cachetic Respiratory: lungs clear Cardiac/Chest: regular rate, rhythm Extremities: normal inspection Neuro/Psych: oriented x 3 ICD10 Worksheet Patient Problems: Problems Problem Status Onset Closed left clavicular fracture Acute Compression fracture of L1 lumbar vertebra Acute Intractable back pain Acute Multiple fractures of ribs, left side, initial encounter for closed fracture Acute Unable to ambulate Acute Acute ischemic stroke Acute Clavicle fracture Acute Dyspnea Acute Elevated troponin Acute Head injury due to trauma Acute Prerenal azotemia Acute Thrombocytosis Acute
--- NOTE | 2018-02-18 11:00 | HOSPPROG ---
Hospitalist Progress Note Assessment/Plan: Patient is 82 y/o man who presented to the ER with back pain. Was at Rehab on and suffered a fall-was seen in the ED and noted to have a left clavicular fx -he was then dc home per his wishes. He did well but over the past 5 days bit he developed severe low back pain without loss of bladder/bowel control. In the ED evaluation was notable for new L1 compression fracture. The patient denies any trauma to his back that he can remember. In addition, CT revealed sub -acute L rib fractures. Patient has a hx of a renal transplant in 1998, CVA and IDDM. *acute back pain/L1 compression fx -noted on ct scan -cont scheduled APAP -consider a kyphoplasty but he is on Apixaban -Lidoderm patch -patient is c/o back pain -MRI ordered, pt with pacemaker -brace per nsg -would likely benefit from kypho *rib fx -1st through 4th -also causing pain *gait instability -several falls, noted to have a left clavicular fx *IDDM - increased his long acting w improvement -resumed home meds *Hyperkalemia -resolved *hx of renal tx -resumed home meds -avoid any nephrotoxic medications -creat is stable -he may need further interventions in regards to his back and pvd-nephrology following *PVD with transmetatarsal amputation -Dr Bryant to further evaluate -studies ordered for arterial flow *CVA -lacunar infarct noted int november of this year *DVT prophylaxis: Apixaban *plan: trial brace await further evaluation PT/OT will need SNF Subjective: More awake today. Still having significant back pain. Objective: Vital Signs Temp Pulse Resp BP Pulse Ox 36.6 C 70 17 173/93 H 99 02/18/18 07:44 02/18/18 08:37 02/18/18 07:44 02/18/18 08:37 02/18/18 07:44 Laboratory Results 02/17/18 04:20 02/18/18 04:25 02/17/18 02/18/18 02/19/18 05:59 05:59 05:59 Intake Total 490 200 Output Total 550 400 50 Balance -60 -200 -50 PT 14.8 SEC (12.0-15.0) 02/14/18 19:35 INR 1.14 (0.83-1.16) 02/14/18 19:35 - Physical Exam Constitutional: chronically ill appearing, uncomfortable Eyes: PERRL, anicteric sclera Ears, Nose, Mouth, Throat: moist mucous membranes, hearing normal Cardiovascular: No JVD, No tachycardia, No edema Respiratory: no respiratory distress, reduced air movement Gastrointestinal: No tenderness, No ascites Skin: warm, normal color Musculoskeletal: pain with ROM, muscular tenderness, abnormal gait, generalized weakness Neurologic: AAOx3 Psychiatric: interacting appropriately, not anxious, not encephalopathic, poor insight, poor memory ICD10 Worksheet Patient Problems: Problems Problem Status Onset Dyspnea Acute Elevated troponin Acute Thrombocytosis Acute Prerenal azotemia Acute Acute ischemic stroke Acute Clavicle fracture Acute Head injury due to trauma Acute Unable to ambulate Acute Closed left clavicular fracture Acute Intractable back pain Acute Multiple fractures of ribs, left side, initial encounter for closed fracture Acute Compression fracture of L1 lumbar vertebra Acute
[2018-02-18] MEDS: PATCH REMOVAL 1 EA PATCH TD SCH (22:44)
[2018-02-19] MEDS: oxyCODONE IR 5 MG TAB PO PRN (04:04)
[2018-02-19] MEDS: ONDANSETRON 4 MG/2 ML VIAL IVP PRN (05:19)
[2018-02-19] MEDS ORDERED: NS 500 ML IV ONE (07:53)
--- NOTE | 2018-02-19 07:57 | NEUSURGPN ---
Assessment/Plan: Assessment: 82 yo male that is s/p fall with with numerous medical issues as well as a clavicle fracture/multiple rib fractures and a acute vs subacute L1 compression fracture Plan: -admitted to and working with Mr Siu regarding his multiple medical issues -L1 compression fracture could be acute or subacute-we had hoped to get a MRI but he has a pacemaker. Patient did not tolerate brace yesterday. Holding Elaquis. Will anticipate L1 Kyphoplasty tomorrow afternoon with Dr Soares. Discussed procedure with family at bedside. NPO tonight at midnight -Appreciate Medicine to work up for general anesthesia clearance. K this am 5.9 -pending MRI of the L spine but unsure with pacemaker that patient has if he will be able to get this study -PT/OT-CPM -continue with current pain management -will trial bracing as tolerated -ok to advance diet today -call with any questions or concerns -Discussed patient with Dr Soares Subjective: laying flat in bed, back pain Objective: Alert and oriented to self and situation ESTEVEZ X4 5/5 BLE aside from left EHL testing r/t amputation Sensation intact to light touch BLE Neuro Check Frequency: per routine Urinary Catheter in Place: No - Physician Discussed Patient with : [facility] Physical Exam - Vitals, I&O, Labs I and O 02/18/18 02/19/18 02/20/18 05:59 05:59 05:59 Intake Total 200 600 Output Total 400 200 Balance -200 400 Intake: Oral (ml) 200 600 Output: Urine (ml) 400 200 Catheter 200 Toilet 200 Urinal 200 Other: Number of Voids Catheter 2 Toilet 1 1 Urinal 1 Vital Signs Temp Pulse Resp BP Pulse Ox 35.7 C L 94 16 76/46 L 94 02/19/18 07:43 02/19/18 07:43 02/19/18 07:43 02/19/18 07:43 02/19/18 07:43 Laboratory Results 02/17/18 04:20 02/19/18 04:21 ICD10 Worksheet Patient Problems: Problems Problem Status Onset Closed left clavicular fracture Acute Compression fracture of L1 lumbar vertebra Acute Intractable back pain Acute Multiple fractures of ribs, left side, initial encounter for closed fracture Acute Unable to ambulate Acute Acute ischemic stroke Acute Clavicle fracture Acute Dyspnea Acute Elevated troponin Acute Head injury due to trauma Acute Prerenal azotemia Acute Thrombocytosis Acute
--- NOTE | 2018-02-19 08:37 | HOSPPROG ---
Hospitalist Progress Note Assessment/Plan: Patient is 82 y/o man who presented to the ER with back pain. Was at Rehab on and suffered a fall-was seen in the ED and noted to have a left clavicular fx -he was then dc home per his wishes. He did well but over the past 5 days bit he developed severe low back pain without loss of bladder/bowel control. In the ED evaluation was notable for new L1 compression fracture. The patient denies any trauma to his back that he can remember. In addition, CT revealed sub -acute L rib fractures. Patient has a hx of a renal transplant in 1998, CVA and IDDM. *acute back pain/L1 compression fx -noted on ct scan -cont scheduled APAP -kypho for tomorrow afternoon -Lidoderm patch -patient is c/o back pain -MRI ordered, pt with pacemaker -having severe pain this morning *hypotension -fluid bolus -check h and h *hyperkalemia -recheck now -if cont to be elevated, will give Kayexalate and albuterol neb -ordered 12 lead now *rib fx -1st through 4th -also causing pain *gait instability -several falls, noted to have a left clavicular fx *IDDM - increased his long acting w improvement -resumed home meds *Hyperkalemia -resolved *hx of renal tx -resumed home meds -avoid any nephrotoxic medications -creat is stable -he may need further interventions in regards to his back and pvd-nephrology following *PVD with transmetatarsal amputation -reviewed his care w [facility]egas surgical team, f/u w Dr Bryant in OP setting *CVA -lacunar infarct noted int november of this year *DVT prophylaxis: Apixaban on hol *plan: transfer to [facility], fluid bolus, Kayexalate, albuterol, reviewed his care w Dr Charles Subjective: Terrence said his back pain is severe and can't sit up during my evaluation. Objective: Vital Signs Temp Pulse Resp BP Pulse Ox 35.7 C L 94 16 76/46 L 94 02/19/18 07:43 02/19/18 07:43 02/19/18 07:43 02/19/18 07:43 02/19/18 07:43 02/18/18 02/19/18 02/20/18 05:59 05:59 05:59 Intake Total 200 600 Output Total 400 200 Balance -200 400 PT 14.8 SEC (12.0-15.0) 02/14/18 19:35 INR 1.14 (0.83-1.16) 02/14/18 19:35 - Physical Exam Constitutional: chronically ill appearing, uncomfortable, cachectic, No not in pain Eyes: PERRL Ears, Nose, Mouth, Throat: hearing normal Cardiovascular: regular rate and rhythym Respiratory: no respiratory distress, reduced air movement Skin: warm Musculoskeletal: other (lying flat in bed due to pain) Neurologic: AAOx3 Psychiatric: interacting appropriately ICD10 Worksheet Patient Problems: Problems Problem Status Onset Closed left clavicular fracture Acute Compression fracture of L1 lumbar vertebra Acute Intractable back pain Acute Multiple fractures of ribs, left side, initial encounter for closed fracture Acute Unable to ambulate Acute Acute ischemic stroke Acute Clavicle fracture Acute Dyspnea Acute Elevated troponin Acute Head injury due to trauma Acute Prerenal azotemia Acute Thrombocytosis Acute
[2018-02-19] MEDS ORDERED: ALBUTEROL 3 ML DEYVIAL IH ONE ×2 (08:58→13:41)
[2018-02-19] MEDS ORDERED: SODIUM POLY SULF 15 GM/60 ML BOTTLE PO ONE (08:59)
--- NOTE | 2018-02-19 09:10 | SOAPPROG ---
SOAP Progress Note Assessment/Plan: Assessment/Plan: 82 y/o M s/p renal txp 1998 who presented after a fall with MAYURI and hyperkalemia. ESRD s/p renal txp -continue prednisone 5mg -continue MMF 500mg BID -continue CSA BID, trough ordered for tonight MAYURI -baseline Cr 0.8, up to 1.3 today -hypotensive today, keep MAP>65 -avoid overuse of opiates -urinalysis and urine sodium sent -renal US -blood cultures x 2 ordered -place denis, monitor I/Os -send CK to r/o rhabdo -agree with fluids NS at 200ml/hr Hyperkalemia -s/p kayexalate but having trouble swallowing -currently 6.0, will repeat this afternoon -EKG, insulin/D5 -talked to nursing Fall with L1 fx -renally dose pain meds -outpt PT 02/19/18 10:00 Subjective: Patient received morphine this am and BP's dropped to low 80's systolic. Resting. at bedside. Objective: Vital Signs Temp Pulse Resp BP Pulse Ox 35.7 C L 93 16 85/48 L 94 02/19/18 07:43 02/19/18 08:56 02/19/18 07:43 02/19/18 08:56 02/19/18 07:43 Laboratory Results 02/19/18 08:30 02/19/18 08:30 02/18/18 02/19/18 02/20/18 05:59 05:59 05:59 Intake Total 200 600 Output Total 400 200 Balance -200 400 PT 14.8 SEC (12.0-15.0) 02/14/18 19:35 INR 1.14 (0.83-1.16) 02/14/18 19:35 Physical Exam - Physical Exam General Appearance: thin, other (resting) EENT: PERRL/EOMI Neck: non-tender, full range of motion, supple Respiratory: decreased breath sounds Cardiac/Chest: normal peripheral pulses, regular rate, rhythm Abdomen: normal bowel sounds, non-tender, soft Skin: normal color, warm/dry Extremities: normal range of motion, non-tender Neuro/Psych: no motor/sensory deficits, depressed affect ICD10 Worksheet Patient Problems: Problems Problem Status Onset Closed left clavicular fracture Acute Compression fracture of L1 lumbar vertebra Acute Intractable back pain Acute Multiple fractures of ribs, left side, initial encounter for closed fracture Acute Unable to ambulate Acute Acute ischemic stroke Acute Clavicle fracture Acute Dyspnea Acute Elevated troponin Acute Head injury due to trauma Acute Prerenal azotemia Acute Thrombocytosis Acute
[2018-02-19] MEDS ORDERED: INSULIN REGULAR HUMAN 100 UNIT/ML UNIT IVP ONE ×2 (09:55→12:53)
[2018-02-19] MEDS: INSULIN LISPRO 100 UNIT/ML SC SCH ×3 (10:02→18:13)
[2018-02-19] MEDS: CARVEDILOL 6.25 MG TAB PO SCH (10:03)
[2018-02-19] MEDS ORDERED: D50W 25 GM/50 ML SYR IVP ONE ×2 (10:15→12:53)
[2018-02-19] MEDS: LATANOPROST 0.005% 2.5 ML OPHT DROPS EACHEYE SCH (10:19)
[2018-02-19 10:31] LABS: CREATINE KINASE 33 IU/L (0-224)
[2018-02-19] MEDS ORDERED: INSULIN REGULAR HUMAN 100 UNIT/ML UNIT SC ONE (10:45)
[2018-02-19] MEDS: ACETAMINOPHEN 500 MG TAB PO SCH ×3 (10:52→22:41)
[2018-02-19] MEDS: CHOLECALCIFEROL VIT D3 1,000 UNITS TAB PO SCH (10:52)
[2018-02-19] MEDS: SENNOSIDES/DOCUSATE SODIUM TAB PO SCH ×2 (10:54→22:41)
[2018-02-19] MEDS: PANTOPRAZOLE SODIUM 40 MG TAB PO SCH (10:54)
--- NOTE | 2018-02-19 11:18 | ASMTCMCOM ---
CM Note CM Note Notes: Pt to transfer to step down. Updates sent to [facility] which remains d/c plan of care. Date Signed: 02/19/2018 11:17 AM Electronically Signed By:MICAELA Shaver
[2018-02-19] MEDS ORDERED: NS 1,000 ML IV SCH (13:00)
[2018-02-19] MEDS: ATORVASTATIN CALCIUM 40 MG TAB PO SCH (13:41)
[2018-02-19] MEDS: ALFUZOSIN HCL 10 MG PO SCH (13:41)
[2018-02-19] MEDS: predniSONE 5 MG TAB PO SCH (13:41)
[2018-02-19] MEDS: ALLOPURINOL 100 MG TAB PO SCH (13:41)
[2018-02-19] MEDS: FINASTERIDE 5 MG TAB PO SCH (13:43)
[2018-02-19] MEDS ORDERED: SODIUM BICARBONATE 50 MEQ/50 ML SYR IVP ONE (13:43)
[2018-02-19] MEDS: LIDOCAINE 4%/MENTHOL 1% PATCH TD SCH (13:43)
[2018-02-19] MEDS ORDERED: ALTEPLASE 2 MG VIAL IVP PRN (13:49)
[2018-02-19] MEDS: MYCOPHENOLATE MOFETIL 250 MG CAP PO SCH ×2 (14:13→22:40)
[2018-02-19] MEDS: URSODIOL 300 MG CAP PO SCH ×2 (14:13→22:41)
[2018-02-19] MEDS: CYCLOSPORINE MODIFIED 25 MG PO SCH ×2 (14:13→22:41)
--- NOTE | 2018-02-19 14:30 | HOSPPROG ---
Hospitalist Progress Note Assessment/Plan: Asked by Darcy Salcedo to see me Salbador given his renal failure, hypotension and hyperK. I discussed the case with Dr Mast - will possibly need HD. # hypotension - suspect hypovolemic given echo findings, exam and history - cont IVF # renal failure, hyperkalemia, acidosis, history of renal transplant - discussed with Dr Mast - may need HN; will arrange for HD catheter today - cont cyclosporine, pred # a-fib, CVA - last dose of eliquis yesterday in am # L1 compr fx - kypho on hold # rib fractures 40 mins of CC time managing renal failure with hyperkalemia Objective: Vital Signs Temp Pulse Resp BP Pulse Ox 36.8 C 77 16 126/60 H 100 02/19/18 12:08 02/19/18 14:00 02/19/18 14:00 02/19/18 14:00 02/19/18 14:00 Laboratory Results 02/19/18 08:30 02/19/18 11:40 02/18/18 02/19/18 02/20/18 05:59 05:59 05:59 Intake Total 200 600 Output Total 400 200 275 Balance -200 400 -275 PT 14.8 SEC (12.0-15.0) 02/14/18 19:35 INR 1.14 (0.83-1.16) 02/14/18 19:35 ICD10 Worksheet Patient Problems: Problems Problem Status Onset Dyspnea Acute Elevated troponin Acute Thrombocytosis Acute Prerenal azotemia Acute Acute ischemic stroke Acute Clavicle fracture Acute Head injury due to trauma Acute Unable to ambulate Acute Closed left clavicular fracture Acute Intractable back pain Acute Multiple fractures of ribs, left side, initial encounter for closed fracture Acute Compression fracture of L1 lumbar vertebra Acute
[2018-02-19] MEDS ORDERED: ALBUTEROL 3 ML DEYVIAL ONE (15:43)
[2018-02-19] MEDS: SODIUM BICARBONATE 150 MEQ in WATER FOR INJECTION,STERILE 1,000 ML IV SCH (15:56)
--- NOTE | 2018-02-19 16:36 | GCON ---
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 HISTORY OF PRESENT ILLNESS: The patient is an 82-year-old white male with extensive past medical his tory, including end-stage renal disease with history of renal transplant in 1998. He also has had a stroke, chronic back pain. He was initially admitted on February 14, 2018, for back pain. Neurosurge ry was subsequently consulted, as was Nephrology. He was subsequently found to have a compression fr acture. Over the last 24 hours, he has had a worsening condition. He was subsequently found to be h ypotensive and transferred to intensive care unit. PICC line will be placed and patient will likely be started on dialysis after a dialysis catheter is placed. In discussion with the patient, he states with the exception of some back pain, he is feeling reasona joseph well. He denies any cough or productive sputum. There is no chest pain, pleuritic-type chest pa in, or angina equivalent. There is no fever or night sweats. PAST MEDICAL HISTORY: Significant for diabetes, which he has had over 40 years, end-stage renal dise ase, status post renal transplant, multiple rib fractures, chronic back pain. ALLERGIES: None known to medications. SOCIAL HISTORY: Previous heavy smoker, none for many years. No significant alcohol use. He is osvaldo ied, has excellent family support. PAST SURGICAL HISTORY: Significant for renal transplant. FAMILY HISTORY: Significant for insulin-dependent diabetes. PHYSICAL EXAM: VITAL SIGNS: Blood pressure is 126/60, pulse 77, respirations 16, temperature is 36. 8, oxygen saturation 100% on 2 L. GENERAL: He is a frail elderly white male who is currently restin g comfortably with no acute issues. HEENT: Eyes are PERRLA. EOMI. He has bilateral arcus senilis p resent. Throat shows no erythema or tonsillar hypertrophy. NECK: Supple. There is no cervical nilesh nopathy. HEART: Regular rate and rhythm without murmurs, rubs, or gallops. LUNGS: Clear to auscul tation. No wheeze or rhonchi. ABDOMEN: Soft, nontender. Bowel sounds are present in all 4 quadran ts. EXTREMITIES: No clubbing, cyanosis, or edema. LABORATORY DATA: Hemoglobin of 12, hematocrit 40. Sodium 138, potassium 6.0, chloride 105, CO2 is 1 2, BUN is 43, creatinine 1.8, glucose is 285. Urinalysis: pH is 5, specific gravity 1.016, otherwis e negative. IMPRESSION: 1. End-stage renal disease. 2. Shock. This is likely hypovolemic. 3. History of stroke. 4. History atrial fibrillation. 5. L1 compression fracture. 6. Rib fractures. RECOMMENDATIONS: 1. Agree with PICC line placement. 2. Agree with dialysis catheter placement and subsequent hemodialysis. 3. Adequate pain control. 4. DVT and PE prophylaxis. 5. Stress ulcer prophylaxis. 6. Close cardiovascular monitoring. 7. Follow chemistries closely. /[id number]/MODL
--- NOTE | 2018-02-19 17:21 | POSTOPPROG ---
Post Op Note Date of Operation: 02/19/18 Surgeon: Steve Herrera Anesthesia: Local (Specify) Pre-op Diagnosis: renal failure Post-op Diagnosis: same Procedure: US guided, Fox Jama placement Findings: successful placement, good flow. Heparin locked Inf/Abcess present in the surg proc area at time of surgery?: No EBL: Minimal
--- NOTE | 2018-02-19 18:07 | GOP ---
DATE OF OPERATION: 02/19/2018 SURGEON: Steve Herrera MD DRILLING SUPERINTENDENT: None. ANESTHESIA: 1% lidocaine. PREOPERATIVE DIAGNOSIS: Acute renal failure. POSTOPERATIVE DIAGNOSIS: Acute renal failure. PROCEDURE PERFORMED: Ultrasound-guided right internal jugular temporary dialysis catheter placement. FINDINGS: Successful cannulation and placement. Catheter both flushed and withdrew appropriately. It was heparin locked. SPECIMENS: None. ESTIMATED BLOOD LOSS: 5 cc. DESCRIPTION OF PROCEDURE: The patient was greeted in the intensive care unit. After discussing risk s, benefits, and alternatives with him and his family, the consent was signed. [facility] Organiza ti time-out was performed. The right neck was then prepped and draped in typical sterile fashion. I identified the right internal jugular vein using ultrasound guidance and successfully anesthetized the skin over the top of it. Once successfully anesthetized, I accessed the vein with a single stick and successfully threaded my guidewire. I did have some ectopy. I withdrew the wire somewhat. I s erially dilated and advanced the catheter. It both flushed and withdrew appropriately. It was attac hed to the skin with an interrupted nylon suture. It was heparin locked and a sterile dressing, incl uding a BioPatch was placed. DRAINS: None. /[id number]/MODL
[2018-02-19] MEDS ORDERED: HEPARIN 10,000 UNIT/10 ML MDV (1,000 UNIT/ML) IVP PRN (20:37)
[2018-02-19] MEDS: HEPARIN/DEXTROSE 500 ML IV SCH (21:26)
[2018-02-19] MEDS: PATCH REMOVAL 1 EA PATCH TD SCH (21:42)
[2018-02-19 21:47] LABS: INR 1.21 (0.83-1.16); PROTIME(PATIENT) 15.5 SEC (12.0-15.0)
[2018-02-19 21:51] LABS: PLATELET COUNT 480 10^3/uL (150-400)
[2018-02-20] MEDS: SODIUM BICARBONATE 150 MEQ in WATER FOR INJECTION,STERILE 1,000 ML IV SCH (07:57)
[2018-02-20] MEDS: ACETAMINOPHEN 500 MG TAB PO SCH ×3 (08:13→20:57)
[2018-02-20] MEDS: INSULIN LISPRO 100 UNIT/ML SC SCH ×3 (08:13→18:21)
[2018-02-20] MEDS ORDERED: NS 1,000 ML IV ONE (08:42)
--- NOTE | 2018-02-20 09:21 | SOAPPROG ---
SOAP Progress Note Assessment/Plan: Assessment/Plan: 82 y/o M s/p renal txp 1998 who presented after a fall with MAYURI and hyperkalemia likely 2/2 to ATN. ESRD s/p renal txp -continue prednisone 5mg -continue MMF 500mg BID -continue CSA BID, trough level pending -low suspicion of rejection, however will monitor MAYURI -baseline Cr 0.8, up to 1.9 today -urinalysis and urine sodium sent -renal US reveals mild hydro in txp kidney stable from previous, denis in place -blood cultures x 2 pending -monitor I/Os, still oliguric -Winsome >50, no evidence of infection -will do short run of HD today, line appreciated -continue to monitor Hypotension -BP's improved -keep MAP>65 -avoid morphine, dropped SBP yesterday -will switch IVF back to NS after HD Hyperkalemia -unable to swallow kayexalate -K+ back up to 5.7 today -will modulate with HD -keep on telemetry -renal diet Fall with L1 fx -renally dose pain meds as above -PT/OT 02/20/18 10:29 Subjective: Long discussion with patient this am regarding dialysis. He states his kidney has worked well for 20 years, however, if he needs dialysis he is willing to do it. He denies N/V/D. He admits he hasn't felt well recently and hasn't eaten or been drinking fluids the way he should. His is coming in later, daughter is auto crane driver. Objective: Vital Signs Temp Pulse Resp BP Pulse Ox 37.1 C 95 15 150/39 H 100 02/20/18 07:59 02/20/18 09:10 02/20/18 09:10 02/20/18 09:10 02/20/18 09:10 Laboratory Results 02/20/18 05:40 02/19/18 02/20/18 02/21/18 05:59 05:59 05:59 Intake Total 600 1886 Output Total 200 620 Balance 400 1266 PT 15.5 SEC (12.0-15.0) H 02/19/18 21:20 INR 1.21 (0.83-1.16) H 02/19/18 21:20 Physical Exam - Physical Exam General Appearance: WD/WN, alert, no apparent distress, thin EENT: PERRL/EOMI, other (dry MM) Neck: non-tender, full range of motion Respiratory: lungs clear, normal breath sounds Cardiac/Chest: regular rate, rhythm Abdomen: normal bowel sounds, non-tender, soft Skin: pallor Extremities: normal range of motion Neuro/Psych: no motor/sensory deficits, alert, normal mood/affect, oriented x 3 ICD10 Worksheet Patient Problems: Problems Problem Status Onset Closed left clavicular fracture Acute Compression fracture of L1 lumbar vertebra Acute Intractable back pain Acute Multiple fractures of ribs, left side, initial encounter for closed fracture Acute Unable to ambulate Acute Acute ischemic stroke Acute Clavicle fracture Acute Dyspnea Acute Elevated troponin Acute Head injury due to trauma Acute Prerenal azotemia Acute Thrombocytosis Acute
[2018-02-20 09:28] LABS: PLATELET COUNT 510 10^3/uL (150-400)
[2018-02-20] MEDS: CHOLECALCIFEROL VIT D3 1,000 UNITS TAB PO SCH (10:52)
[2018-02-20] MEDS: predniSONE 5 MG TAB PO SCH (10:52)
[2018-02-20] MEDS: SENNOSIDES/DOCUSATE SODIUM TAB PO SCH ×2 (10:52→20:57)
[2018-02-20] MEDS: MYCOPHENOLATE MOFETIL 250 MG CAP PO SCH ×2 (10:52→20:58)
[2018-02-20] MEDS: ATORVASTATIN CALCIUM 40 MG TAB PO SCH (10:52)
[2018-02-20] MEDS: ALLOPURINOL 100 MG TAB PO SCH (10:52)
[2018-02-20] MEDS: CYCLOSPORINE MODIFIED 25 MG PO SCH ×2 (10:52→20:57)
[2018-02-20] MEDS: URSODIOL 300 MG CAP PO SCH ×2 (10:52→20:57)
[2018-02-20] MEDS: FINASTERIDE 5 MG TAB PO SCH (10:53)
[2018-02-20] MEDS: PANTOPRAZOLE SODIUM 40 MG TAB PO SCH (10:53)
[2018-02-20] MEDS: ALFUZOSIN HCL 10 MG PO SCH (11:01)
[2018-02-20] MEDS: LIDOCAINE 4%/MENTHOL 1% PATCH TD SCH (11:02)
[2018-02-20] MEDS: LATANOPROST 0.005% 2.5 ML OPHT DROPS EACHEYE SCH (11:02)
[2018-02-20] MEDS: ASPIRIN EC 325 MG TAB PO SCH (11:10)
--- NOTE | 2018-02-20 12:33 | PDCARPN ---
Cardiology Progress Note Assessment/Plan: Assessment/plan: 82-year-old male with long history of insulin-dependent diabetes, past history of renal failure status post renal transplant in 1998, paroxysmal atrial fibrillation with pacemaker. Was admitted earlier this month with back pain and found to have a subacute L1 compression fracture likely related to a fall that he sustained in December of this year. Plans were for kyphoplasty. However, yesterday he developed intermittent hypotension and was found to be in acute renal failure with hyperkalemia. He was transferred to ICU. Because of his hemodynamic changes a troponin was checked and it was 14. This has trended down today. 1. Non ST-elevation UT. Peak troponin is 14. His echocardiogram shows overall similar findings compared to October, but his EKG does show lateral ST depression inferior ST elevation. He is not having chest pain, although he is diabetic so he could certainly have asymptomatic ischemia. Given his acute renal failure and current clinical stability I would favor medical management of his UT. He is on IV heparin. Aspirin has been added. Continue statin. Coreg on hold due to hypotension. 2. Acute renal failure with hyperkalemia: This is likely related to intermittent hypotension and volume depletion as he reports poor p. O. Intake in the days leading up to admission. He will be having dialysis today. No coronary angiogram as detailed above. 3. Labile blood pressure: Currently hypertensive but was hypotensive to the 80s this morning. 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 Ideally would be back on his low-dose Coreg but this has been held in the setting of hypotension yesterday and earlier today. Continue follow closely. 4. Paroxysmal atrial fibrillation: Chuyita is on hold for possible kyphoplasty. Heparin IV. He also has a pacemaker. 5. Diabetes: Multiple complications including renal failure, neuropathy, legal blindness. Overall his prognosis seems poor as he is frail, has a history of fall, and now new renal failure with non ST elevation UT. Discussed on multidisciplinary rounds. Consider palliative care consult. 02/20/18 12:35 Subjective: He is not having back pain except when he tries to move. He denies angina. No dyspnea. Reviewed/Discussed With: hospitalist, multidisciplinary team Objective: Vital Signs (8 Hrs) Temp Pulse Resp BP Pulse Ox 02/20/18 11:46 36.5 C 81 18 144/36 H 100 02/20/18 10:10 87 15 174/48 H 100 02/20/18 09:10 95 15 150/39 H 100 02/20/18 07:59 37.1 C 98 20 87/49 L 96 Intake/Output (24 Hrs) 02/19/18 02/20/18 02/21/18 05:59 05:59 05:59 Intake Total 600 1886 1000 Output Total 200 620 Balance 400 1266 1000 Intake: Oral (ml) 600 460 IV Infused (ml) 1426 1000 Heparin/Dextrose 500 ml @ 103 Per Protocol IV CONT LIZZIE Rx#:[id number] Ns 1,000 ml @ 150 mls/hr 363 IV CONT LIZZIE Rx#: [id number] Ns 1,000 ml @ Wide Open 1000 IV ONCE ONE Rx#: [id number] Sodium Bicarbonate 150 960 meq In Water For Injection,Sterile 1,000 ml @ 50 mls/hr IV CONT LIZZIE Rx#:[id number] Output: Urine (ml) 200 620 Catheter 620 Toilet 200 Other: Weight 62 kg Intake Quantity No Sufficient Number of Voids Toilet 1 Frail, elderly, fatigued Irregularly irregular rhythm with 2/6 holosystolic murmur at the left lower sternal border Abdomen soft nontender No lower extremity edema Lungs clear anteriorly and laterally Result Diagrams: 02/20/18 08:55 02/20/18 05:40 Cardiac Labs: Cardiac Lab Results (72 Hrs) 02/20/18 02/19/18 02/19/18 05:40 21:20 14:15 Troponin I 2.440 H 3.510 H 14.000 H EKG: Either junctional rhythm or sinus rhythm with diminutive P-waves. Inferior ST- elevation. Lateral ST depression. EKG yesterday was V paced. Telemetry: Sinus rhythm. PAF. Intermittent ventricular pacing. Echocardiogram: Dated 02/19 Reviewed: Low normal LV systolic function at 50-55%. Inferior and inferior posterior hypokinesis that are slightly worse but not new compared with October and August of this year. [id number] mitral regurgitation. ICD10 Worksheet Patient Problems: Problems Problem Status Onset Closed left clavicular fracture Acute Compression fracture of L1 lumbar vertebra Acute Intractable back pain Acute Multiple fractures of ribs, left side, initial encounter for closed fracture Acute Unable to ambulate Acute Acute ischemic stroke Acute Clavicle fracture Acute Dyspnea Acute Elevated troponin Acute Head injury due to trauma Acute Prerenal azotemia Acute Thrombocytosis Acute
--- NOTE | 2018-02-20 13:18 | PDINTPN ---
Application Support Progress Note Assessment/Plan: Assessment/Plan: * End-stage renal disease with history of renal transplant 1998 -dialysis catheter has been placed * Shock-resolved * Coronary artery disease * Non ST elevation SC -per Cardiology * History of stroke * Atrial fibrillation * L1 compression fracture * Rib fractures * Disposition-with multiple organ problems, query prognosis. -consider palliative care Subjective: Resting comfortably. No current complaints. Objective: Vital Signs Temp Pulse Resp BP Pulse Ox 36.5 C 81 18 144/36 H 100 02/20/18 11:46 02/20/18 11:46 02/20/18 11:46 02/20/18 11:46 02/20/18 11:46 Laboratory Results 02/20/18 08:55 02/20/18 05:40 02/19/18 02/20/18 02/21/18 05:59 05:59 05:59 Intake Total 600 1886 1000 Output Total 200 620 Balance 400 1266 1000 PT 15.5 SEC (12.0-15.0) H 02/19/18 21:20 INR 1.21 (0.83-1.16) H 02/19/18 21:20 - Time Spent With Patient Time Spent With Patient: 35 min of time spent with patient, over 1/2 involved with coordination of care or counseling. Case discussed with nurse and hospitalist Physical Exam - Physical Exam General Appearance: alert, no apparent distress EENT: PERRL/EOMI Neck: non-tender Respiratory: chest non-tender, lungs clear Cardiac/Chest: normal peripheral pulses, regular rate, rhythm, systolic murmur Abdomen: normal bowel sounds, non-tender, soft Male Genitalia: deferred Rectal: deferred Skin: normal color, warm/dry Extremities: normal range of motion, non-tender, normal inspection, normal capillary refill Neuro/Psych: alert ICD10 Worksheet Patient Problems: Problems Problem Status Onset Closed left clavicular fracture Acute Compression fracture of L1 lumbar vertebra Acute Intractable back pain Acute Multiple fractures of ribs, left side, initial encounter for closed fracture Acute Unable to ambulate Acute Acute ischemic stroke Acute Clavicle fracture Acute Dyspnea Acute Elevated troponin Acute Head injury due to trauma Acute Prerenal azotemia Acute Thrombocytosis Acute
--- NOTE | 2018-02-20 15:37 | ASMTCMCOM ---
CM Note CM Note Notes: Patient to have a Palliative consult Monday to talk about code status and treatment goals. Date Signed: 02/20/2018 03:37 PM Electronically Signed By:Dilma Marquez LCSW
--- NOTE | 2018-02-20 20:19 | GCON ---
CARDIOLOGY CONSULTATION On patient EKG Siu to 15 38 thyroid numbers and number right now. CHIEF COMPLAINT: Positive troponin. HISTORY OF PRESENT ILLNESS: We were asked by Dr. Hernandez to visit with the patient. The patient is an 82-year-old male with a 40-year history of type 1 diabetes, complicated by legal blindness, renal failure with renal transplant in 1998, and toe amputations. He has paroxysmal atrial fibrillation an d a permanent pacemaker that is a [employer] device. In October of this year, he had a stroke with residu al left arm weakness. He was admitted on February 15, with severe back pain. He had sustained a mechanical fall related to getting his walker stuck in a doorjamb at the end of December. He was found to have rib fractures a nd a clavicle fracture at that time and discharged home. He, then, returned with back pain and was d iagnosed, this admission, with an L1 compression fracture. The option of kyphoplasty has been recomm ended by Neurosurgery. Earlier today, he became acutely hypotensive and was found to be in new renal failure. His creatinin e went from 0.8 yesterday to 1.3 this morning to 1.8 this afternoon. He was also hyperkalemic. [place] use of his metabolic derangements and hypotension, he was transferred to the ICU. A troponin was teofilo cked and was found to be 14. Therefore, we were asked for further cardiology management. Upon my evaluation, he reports his only concern is back pain when he tries to move in bed. He denies angina or dyspnea. He has not had palpitations. ALLERGIES: No known drug allergies. PAST MEDICAL HISTORY: 1. Type 1 diabetes, long-standing with multiple complications. 2. Paroxysmal atrial fibrillation. 3. [employer] pacemaker. 4. History of lacunar infarct in October of this year. 5. History of renal transplant in 1998. 6. Labile hypertension. 7. Legal blindness. 8. Dyslipidemia. 9. History of toe amputation. 10. Gout. 11. BPH. OUTPATIENT MEDICATIONS: Tylenol, Uroxatral, allopurinol, Eliquis 5 mg twice daily, Atorvastatin 40 m g daily, carvedilol 2.125 mg b.i.d. vitamin D3, cyclosporin, Proscar, Mucinex, insulin, CellCept, Pro tonix, prednisone 5 mg daily, and Ursodiol. SOCIAL HISTORY: The patient is . He has 2 daughters involved in his care. FAMILY HISTORY: Not applicable to the current case. PHYSICAL EXAM: VITAL SIGNS: Blood pressure is currently 107/46, heart rate 66, oxygen saturation 10 0% on 2 L nasal cannula, respiratory rate is 16. He is afebrile. GENERAL: Chronically ill-appearin g, frail, elderly male in no acute distress. HEENT: Sclerae are clear. Conjunctivae are erythemato us. No icterus. Normocephalic, atraumatic. Mucous membranes are slightly dry. CARDIOVASCULAR: JV P is less than 10. Regular rate and rhythm without murmur, rub, or gallop. LUNGS: Clear anteriorly and laterally. ABDOMEN: Soft, nontender, nondistended without bruits, masses, or hepatosplenomegal y. EXTREMITIES: Warm and well perfused without edema. Metatarsal amputation on the left. DATA REVIEWED: Echocardiogram reviewed by me shows low-normal ejection fraction 50% with inferior in ferolateral hypokinesis. This is fairly similar to October 2017. Chest x-ray reviewed by me shows no acute cardiopulmonary process. He does have rib fractures. EKG reviewed by me: Likely underlying atrial fibrillation with ventricular pacing. Laboratory data: Hematocrit was 40, white count was 11.7 on February 17. INR 1.14. Sodium 134, po tassium 4.9, down from 6 earlier today. BUN 46, creatinine 1.8. Troponin 14. Total protein 3. ASSESSMENT AND PLAN: An 82-year-old male with type 1 diabetes, paroxysmal atrial fibrillation, pacem mimi, recent stroke, renal transplant, now admitted with what appears to be a subacute L1 fracture th at august have been related to a fall at the end of December. Today, he became hypertensive, and labs reflected acute renal failure with hyperkalemia. Troponin was checked in the setting of hypertension , is found to be 14. 1. Positive troponin: Certainly the patient most likely has underlying coronary disease on the basi s of his multiple cardiac risk factors and wall motion abnormality on echocardiogram. This wall werner on abnormality is slightly worse compared with October of this year. He is not having angina. His EKG is paced, so therefore not interpretable for ischemia. At this point, without angina and unclear acu ity of his non-ST elevation myocardial infarction (i.e. did he have a myocardial infarction in the pa st few days and his troponin is down trending or did he have demand ischemia in the setting of his hy potension today), would not perform urgent coronary catheterization. This is almost contraindicated in the setting of his acute renal failure. We will start IV heparin for non-ST elevation myocardial infarction. Hold on aspirin as he may need a kyphoplasty. Continue statin. Could not be on beta bl ockers at the moment as he was hypertensive earlier today. 2. Acute renal failure: He has had a central line placed. Nephrology is involved in his care. It is possible that the etiology of his acute renal failure is related to intermittent hypotension, nadia cially as his left ventricular ejection fraction is not dramatically decreased. He does have a long history of labile hypotension, which may be related to diabetic autonomic neuropathy. He was previou sly on midodrine, but I think this should be discouraged as it leads to an increase in his antihypert ensive therapy down the road. 3. : This was a problem earlier today and seems to have improved. This may be related to his diabetic autonomic neuropathy. He does not appear to be infected. This does not appear to be c ardiogenic shock. He may be slightly dry. He is currently monitored closely in terms of ins and out s in the Intensive Care Unit. 4. Paroxysmal atrial fibrillation and permanent pacemaker: Continue telemetry. Eliquis is on hold due to possible kyphoplasty in the near future. Heparin as above. 5. Diabetes: Multiple complications. On insulin. 6. Overall, his prognosis appears poor with multiple worsening medical problems. Would favor conser vative management of his cardiac issues at this point. Thank you for this consult. We will follow with you. /[id number]/MODL
--- NOTE | 2018-02-20 22:44 | HOSPPROG ---
Hospitalist Progress Note Assessment/Plan: Assessment: 82 yo M p/w MAYURI, metabolic acidosis, NSTEMI, and hypotension Plan: # hypotension. acutely worsening this AM, concern for shock from hypovolemia, vLact 2.3 -improved w/ 1L NS bolus -d/w Dr. Wolfe on team rounds, she reports hx of dysautonomia, may be cause of current exacerbation -hold on midodrine (has used in past) given NSTEMI and suspicion for MVD # MAYURI. Hx ESRD w/ transplant, recent baseline Cr < 1, worsening to 1.9 today likely 2/2 hypovolemia -appreciate renal consult, HD cath in place -plan for HD today -cont pred 5, MMF, cyclosporin -temporize w/ bicarb gtt, monitor for signs of volume overload (CXR w/ mild interstitial markings but no overt CHF) # Metabolic acidosis. Acute, 2/2 above, worsening today, increased bicarb gtt to 100/hr -repeat levels in AM # Hyperglycemia and DM. Acute, adjust ISS to ACHS # NSTEMI. Suspect type II in setting of above, but also likely has MVD w/ longstanding DM -d/w Dr. Wolfe, she recommends adding ASA 325, cont hep gtt, statin, hold on bblocker given hypotension -hold on cath, but if fxnal status improves, can consider either nuc stress vs. cath if renal recovery # Afib. Paroxysmal, hx of CVA /w LUE paresthesias/paresis as residual deficits -get PT/OT evals -holding eliquis, on hep gtt # L1 compression fracture. Causing back pain, NSGY recommended kypho -kypho currently on hold given above -plan on MRI after above resolved -plan on IR consult after above resolved -cont pain control, lidoderm/heat/ice # Rib fractures. Cont pain mgmt, IS # Acute hyperkalemia. Monitor on tele, bicarb Diet. Low K PPx. High risk, hep gtt Code. DNR per patient discussion today, MDPOA Dispo. ADD uncertain, remains critically ill 30 minutes of critical care time spent w/ patient, at bedside and on team rounds , coordinating care w/ Dr. Wen/Aiden, specifically addressing his hypotension , MAYURI, NSTEMI which render him critically ill w/ high risk for worsening morbidity/mortality. Getting palliative consultation to asst w/ establishing goals of care. Subjective: patient denies CP/SOB, has back pain w/ movement Objective: Vital Signs Temp Pulse Resp BP Pulse Ox 36.5 C 70 19 133/26 H 100 02/20/18 11:46 02/20/18 20:00 02/20/18 20:00 02/20/18 20:00 02/20/18 20:00 Laboratory Results 02/20/18 08:55 02/20/18 05:40 02/19/18 02/20/18 02/21/18 05:59 05:59 05:59 Intake Total 600 1886 1996 Output Total 200 620 235 Balance 400 1266 1762 PT 15.5 SEC (12.0-15.0) H 02/19/18 21:20 INR 1.21 (0.83-1.16) H 02/19/18 21:20 - Physical Exam Constitutional: chronically ill appearing, uncomfortable Cardiovascular: regular rate and rhythym, systolic murmur (II/ at apex), other (LUE fistula w/o thrill), No irregularly irregular, No JVD, No edema Respiratory: inspiratory crackles (bilat bases), No reduced air movement, No expiratory wheeze, No bronchial breath sounds Gastrointestinal: normoactive bowel sounds, soft, non-tender abdomen, no palpable masses Neurologic: AAOx3 Psychiatric: interacting appropriately, not anxious, not encephalopathic, thought process linear ICD10 Worksheet Patient Problems: Problems Problem Status Onset Dyspnea Acute Elevated troponin Acute Thrombocytosis Acute Prerenal azotemia Acute Acute ischemic stroke Acute Clavicle fracture Acute Head injury due to trauma Acute Unable to ambulate Acute Closed left clavicular fracture Acute Intractable back pain Acute Multiple fractures of ribs, left side, initial encounter for closed fracture Acute Compression fracture of L1 lumbar vertebra Acute
[2018-02-21] MEDS: PATCH REMOVAL 1 EA PATCH TD SCH (00:25)
[2018-02-21] MEDS ORDERED: HEPARIN 50,000 UNIT/10 ML VIAL IV ONE (01:47)
[2018-02-21 06:36] LABS: PLATELET COUNT 440 10^3/uL (150-400)
[2018-02-21] MEDS: SODIUM BICARBONATE 150 MEQ in WATER FOR INJECTION,STERILE 1,000 ML IV SCH ×2 (07:28→14:27)
[2018-02-21] MEDS: INSULIN LISPRO 100 UNIT/ML SC SCH ×3 (08:18→17:56)
[2018-02-21] MEDS: URSODIOL 300 MG CAP PO SCH ×2 (08:18→21:42)
[2018-02-21] MEDS: ALLOPURINOL 100 MG TAB PO SCH (08:19)
[2018-02-21] MEDS: FINASTERIDE 5 MG TAB PO SCH (08:19)
[2018-02-21] MEDS: CYCLOSPORINE MODIFIED 25 MG PO SCH ×2 (08:19→21:42)
[2018-02-21] MEDS: LIDOCAINE 4%/MENTHOL 1% PATCH TD SCH (08:19)
[2018-02-21] MEDS: ATORVASTATIN CALCIUM 40 MG TAB PO SCH (08:19)
[2018-02-21] MEDS: ASPIRIN EC 325 MG TAB PO SCH (08:19)
[2018-02-21] MEDS: PANTOPRAZOLE SODIUM 40 MG TAB PO SCH (08:19)
[2018-02-21] MEDS: POLYETHYLENE GLYCOL 3350 17 GM PKT PO PRN (08:19)
[2018-02-21] MEDS: MYCOPHENOLATE MOFETIL 250 MG CAP PO SCH ×2 (08:19→21:44)
[2018-02-21] MEDS: predniSONE 5 MG TAB PO SCH (08:19)
[2018-02-21] MEDS: ACETAMINOPHEN 500 MG TAB PO SCH ×3 (08:19→21:41)
[2018-02-21] MEDS: CHOLECALCIFEROL VIT D3 1,000 UNITS TAB PO SCH (08:19)
[2018-02-21] MEDS: ONDANSETRON 4 MG/2 ML VIAL IVP PRN (08:29)
[2018-02-21] MEDS: LATANOPROST 0.005% 2.5 ML OPHT DROPS EACHEYE SCH (08:31)
[2018-02-21] MEDS: ALFUZOSIN HCL 10 MG PO SCH (08:31)
[2018-02-21] MEDS ORDERED: SODIUM POLY SULF 15 GM/60 ML BOTTLE PO ONE (08:47)
[2018-02-21] MEDS ORDERED: INSULIN GLARGINE 100 UNITS/ML UNIT SC SCH ×2 (09:00→21:16)
[2018-02-21] MEDS ORDERED: ASPIRIN EC 325 MG TAB PO SCH (09:00)
--- NOTE | 2018-02-21 09:28 | PDINTPN ---
Optometric Assistant Progress Note Assessment/Plan: Assessment/Plan: * End-stage renal disease with history of renal transplant 1998 -dialysis catheter has been placed * Shock-resolved * Coronary artery disease * Non ST elevation [place] -per Cardiology * History of stroke * Atrial fibrillation * L1 compression fracture-Pain reasonably well controlled. Not likely a candidate for surgical intervention * Rib fractures * Disposition-with multiple organ problems, query prognosis. -consider palliative care Subjective: Resting comfortably in bed. No current complaints. Objective: Vital Signs Temp Pulse Resp BP Pulse Ox 37.2 C 103 H 19 120/65 97 02/21/18 07:11 02/21/18 07:11 02/21/18 07:11 02/21/18 07:11 02/21/18 07:11 Laboratory Results 02/21/18 05:50 02/21/18 05:50 02/20/18 02/21/18 02/22/18 05:59 05:59 05:59 Intake Total 1886 2251 Output Total 620 385 Balance 1266 1866 PT 15.5 SEC (12.0-15.0) H 02/19/18 21:20 INR 1.21 (0.83-1.16) H 02/19/18 21:20 Laboratory Results 02/21/18 05:50 02/21/18 05:50 02/21/18 02/21/18 02/20/18 08:15 05:50 12:30 Glucose 327 mg/dL H mg/dL (70 - 100) POC Glucose 342 mg/dL H mg/dL 274 mg/dL H mg/dL (70 - 100) (70 - 100) Calcium 8.0 mg/dL L mg/dL (8.5 - 10.4) Phosphorus 4.3 mg/dL mg/dL (2.5 - 4.5) Troponin I Albumin 2.8 g/dL L g/dL (3.5 - 5.0) 02/20/18 02/20/18 08:08 05:40 Glucose POC Glucose 295 mg/dL H mg/dL (70 - 100) Calcium 8.1 mg/dL L mg/dL (8.5 - 10.4) Phosphorus 5.3 mg/dL H mg/dL (2.5 - 4.5) Troponin I 2.440 ng/mL H ng/mL (0.000 - 0.034) Albumin 2.9 g/dL L g/dL (3.5 - 5.0) - Time Spent With Patient Time Spent With Patient: 35 min of time spent with patient, over 1/2 involved with coordination of care or counseling. Case discussed with Nursing and Nephrology Physical Exam - Physical Exam General Appearance: alert, no apparent distress EENT: PERRL/EOMI Neck: non-tender, supple Respiratory: rhonchi (Few), No respiratory distress, No wheezing Cardiac/Chest: normal peripheral pulses, regular rate, rhythm, systolic murmur Abdomen: normal bowel sounds, non-tender, soft Male Genitalia: deferred Rectal: deferred Skin: normal color, warm/dry Extremities: normal range of motion, non-tender, normal inspection, normal capillary refill Neuro/Psych: alert ICD10 Worksheet Patient Problems: Problems Problem Status Onset Closed left clavicular fracture Acute Compression fracture of L1 lumbar vertebra Acute Intractable back pain Acute Multiple fractures of ribs, left side, initial encounter for closed fracture Acute Unable to ambulate Acute Acute ischemic stroke Acute Clavicle fracture Acute Dyspnea Acute Elevated troponin Acute Head injury due to trauma Acute Prerenal azotemia Acute Thrombocytosis Acute
--- NOTE | 2018-02-21 09:31 | SOAPPROG ---
SOAP Progress Note Assessment/Plan: Assessment: ESRD, kidney transplant in 1998, baseline creat about 0.8 MAYURI due to hypotension, may have been related to MSO4 BP better today, UOP picking up a bit hyperkalemia better after HD, 5.1 today immunosuppression: MMF, Pred and CS-A Plan: No urgent HD needs today Assess for HD tomorrow pain control for fractures encouraged PO and physical therapy My suspicion is that he will recover his kidney function, may take awhile, however 02/21/18 09:24 Subjective: pain is manageable no cp sob nausea, didn't tolerate his breakfast very well this AM sleeping OK energy still not great spirits good, had a nice conversation about his time in the [employer] and public service Objective: Vital Signs Temp Pulse Resp BP Pulse Ox 37.2 C 103 H 19 120/65 97 02/21/18 07:11 02/21/18 07:11 02/21/18 07:11 02/21/18 07:11 02/21/18 07:11 Laboratory Results 02/21/18 05:50 02/21/18 05:50 02/20/18 02/21/18 02/22/18 05:59 05:59 05:59 Intake Total 1886 2251 Output Total 620 385 Balance 1266 1866 PT 15.5 SEC (12.0-15.0) H 02/19/18 21:20 INR 1.21 (0.83-1.16) H 02/19/18 21:20 Physical Exam - Physical Exam General Appearance: alert, thin Neck: normal inspection Respiratory: No rhonchi, No wheezing, No pleural rub Cardiac/Chest: regular rate, rhythm, systolic murmur, No edema, No gallop, No friction rub Abdomen: normal bowel sounds, non-tender, soft, other (allograft RLQ nt, no bruit) Skin: normal color, warm/dry Extremities: No swelling Neuro/Psych: alert, normal mood/affect, oriented x 3 ICD10 Worksheet Patient Problems: Problems Problem Status Onset Closed left clavicular fracture Acute Compression fracture of L1 lumbar vertebra Acute Intractable back pain Acute Multiple fractures of ribs, left side, initial encounter for closed fracture Acute Unable to ambulate Acute Acute ischemic stroke Acute Clavicle fracture Acute Dyspnea Acute Elevated troponin Acute Head injury due to trauma Acute Prerenal azotemia Acute Thrombocytosis Acute
[2018-02-21] MEDS: SENNOSIDES/DOCUSATE SODIUM TAB PO SCH (09:45)
--- NOTE | 2018-02-21 12:37 | PDCARPN ---
Cardiology Progress Note Assessment/Plan: Assessment/plan: 82-year-old male with long history of insulin-dependent diabetes, past history of renal failure status post renal transplant in 1998, paroxysmal atrial fibrillation with pacemaker. Was admitted earlier this month with back pain and found to have a subacute L1 compression fracture likely related to a fall that he sustained in December of this year. Plans were for kyphoplasty. However, 02/19 he developed intermittent hypotension and was found to be in acute renal failure with hyperkalemia. He was transferred to ICU. Because of his hemodynamic changes a troponin was checked and it was 14. This has trended down. 1. Non ST-elevation [place]. Peak troponin is 14. His echocardiogram shows overall similar findings compared to October, but his EKG does show lateral ST depression inferior ST elevation. He is not having chest pain, although he is diabetic so he could certainly have asymptomatic ischemia. Given his acute renal failure and current clinical stability I would favor medical management of his AZ. He is on IV heparin. Aspirin has been added. Continue statin. Coreg on hold due to hypotension. 2. Acute renal failure with hyperkalemia: Improving. This is likely related to intermittent hypotension and volume depletion as he reports poor p. O. Intake in the days leading up to admission. Had dialysis on 02/20. No coronary angiogram as detailed above. 3. Labile blood pressure: Currently hypertensive but was hypotensive to the 80s this morning. 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 Ideally would be back on his low-dose Coreg but this has been held in the setting of hypotension yesterday and earlier today. 4. Paroxysmal atrial fibrillation: Eliquis is on hold for possible kyphoplasty. Heparin IV. He also has a pacemaker. Restart Eliquis if no plans for kyphoplasty. 5. Diabetes: Multiple complications including renal failure, neuropathy, legal blindness. Overall his prognosis seems poor as he is frail, has a history of fall, and now new renal failure with non ST elevation [place]. Consider palliative care consult. Will sign off, please call with questions. 02/21/18 12:35 Subjective: Constipated. No angina or SOB. Still back pain Reviewed/Discussed With: multidisciplinary team Objective: Vital Signs (8 Hrs) Temp Pulse Resp BP Pulse Ox 02/21/18 07:11 37.2 C 103 H 19 120/65 97 Intake/Output (24 Hrs) 02/20/18 02/21/18 02/22/18 05:59 05:59 05:59 Intake Total 1886 2251 Output Total 620 385 Balance 1266 1866 Intake: Oral (ml) 460 550 IV Infused (ml) 1426 1701 Heparin/Dextrose 500 ml @ 103 205 Per Protocol IV CONT LIZZIE Rx#:[id number] Ns 1,000 ml @ 150 mls/hr 363 IV CONT LIZZIE Rx#: [id number] Ns 1,000 ml @ Wide Open 1000 IV ONCE ONE Rx#: [id number] Sodium Bicarbonate 150 960 496 meq In Water For Injection,Sterile 1,000 ml @ 100 mls/hr IV CONT LIZZIE Rx#:[id number] Output: Urine (ml) 620 385 Catheter 620 385 Other: Weight 62 kg Intake Quantity No Sufficient NAD, trying to have BM. Rest of exam deferred Result Diagrams: 02/21/18 05:50 02/21/18 05:50 Cardiac Labs: Cardiac Lab Results (72 Hrs) 02/20/18 02/19/18 02/19/18 05:40 21:20 14:15 Troponin I 2.440 H 3.510 H 14.000 H Telemetry: PAF, V pacing. Short run of probable VT ICD10 Worksheet Patient Problems: Problems Problem Status Onset Dyspnea Acute Elevated troponin Acute Thrombocytosis Acute Prerenal azotemia Acute Acute ischemic stroke Acute Clavicle fracture Acute Head injury due to trauma Acute Unable to ambulate Acute Closed left clavicular fracture Acute Intractable back pain Acute Multiple fractures of ribs, left side, initial encounter for closed fracture Acute Compression fracture of L1 lumbar vertebra Acute
--- NOTE | 2018-02-21 20:52 | HOSPPROG ---
Hospitalist Progress Note Assessment/Plan: Assessment: 82 yo M p/w MAYURI, metabolic acidosis, NSTEMI, and hypotension Plan: # hypotension. 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 Oliguric, Hx ESRD w/ transplant, recent baseline Cr 0.8, improving w/ IVF -appreciate renal consult, HD cath in place, no HD today -cont pred 5, MMF, cyclosporin -temporize w/ bicarb gtt, mild UOP today -bleeding from HD site, hold hep gtt if needed, will consider removing cath if worsening # Metabolic acidosis. Acute, 2/2 above, ongoing, cont bicarb gtt 100/hr -repeat levels in AM # Hyperglycemia and DM. Acute, adjusted ISS to ACHS, add lantus # NSTEMI. Suspect type II in setting of above, but also likely has MVD w/ longstanding DM -per Dr. Wolfe cont ASA 325, cont hep gtt, statin, add bblocker in AM if BP tolerates -hold on cath, but if fxnal status improves, can consider either nuc stress vs. cath if renal recovery # Afib. Paroxysmal, hx of CVA /w LUE paresthesias/paresis as residual deficits, mild RVR on tele (personally interpreted) -get PT/OT evals -holding eliquis, on hep gtt # L1 compression fracture. Causing back pain, NSGY recommended kypho -kypho currently on hold given above -plan on MRI after above resolved -plan on IR consult after above resolved -cont pain control, lidoderm/heat/ice # Rib fractures. Cont pain mgmt, IS # Acute hyperkalemia. Monitor on tele, bicarb, kayex today Diet. Low K PPx. High risk, hep gtt Code. DNR per patient discussion today, MDPOA Dispo. ADD uncertain, remains critically ill High level of medical complexity, high risk for worsening morbidity/mortality 2/ 2 issues outlined above. Subjective: having BM, bleeding R neck HD cath site Objective: Vital Signs Temp Pulse Resp BP Pulse Ox 36.5 C 74 18 164/66 H 99 02/21/18 16:00 02/21/18 16:00 02/21/18 16:00 02/21/18 16:00 02/21/18 16:00 Laboratory Results 02/21/18 05:50 02/21/18 05:50 02/20/18 02/21/18 02/22/18 05:59 05:59 05:59 Intake Total 1886 2251 1601.1 Output Total 620 385 100 Balance 1266 1866 1501.1 PT 15.5 SEC (12.0-15.0) H 02/19/18 21:20 INR 1.21 (0.83-1.16) H 02/19/18 21:20 - Physical Exam Constitutional: no apparent distress, not in pain, chronically ill appearing, uncomfortable Cardiovascular: systolic murmur (I/ at ll valves), irregularly irregular, tachycardia, No edema Respiratory: no respiratory distress, no rales or rhonchi, clear to auscultation Gastrointestinal: normoactive bowel sounds, soft, non-tender abdomen, distension (mild), No guarding Skin: other (mild bleeding R neck HD site) Neurologic: AAOx3 Psychiatric: interacting appropriately, not anxious, not encephalopathic, thought process linear ICD10 Worksheet Patient Problems: Problems Problem Status Onset Dyspnea Acute Elevated troponin Acute Thrombocytosis Acute Prerenal azotemia Acute Acute ischemic stroke Acute Clavicle fracture Acute Head injury due to trauma Acute Unable to ambulate Acute Closed left clavicular fracture Acute Intractable back pain Acute Multiple fractures of ribs, left side, initial encounter for closed fracture Acute Compression fracture of L1 lumbar vertebra Acute
[2018-02-22] MEDS: INSULIN LISPRO 100 UNIT/ML SC SCH ×5 (00:01→21:11)
[2018-02-22] MEDS: SENNOSIDES/DOCUSATE SODIUM TAB PO SCH ×3 (01:11→20:33)
[2018-02-22] MEDS: HEPARIN/DEXTROSE 500 ML IV SCH (02:01)
[2018-02-22 04:43] LABS: PLATELET COUNT 472 10^3/uL (150-400)
[2018-02-22] MEDS: PATCH REMOVAL 1 EA PATCH TD SCH ×2 (05:46→20:35)
[2018-02-22] MEDS: CARVEDILOL 3.125 MG TAB PO SCH ×2 (08:33→18:15)
[2018-02-22] MEDS: MYCOPHENOLATE MOFETIL 250 MG CAP PO SCH ×2 (08:47→21:12)
[2018-02-22] MEDS: CYCLOSPORINE MODIFIED 25 MG PO SCH ×2 (08:47→21:12)
[2018-02-22] MEDS: predniSONE 5 MG TAB PO SCH (08:47)
[2018-02-22] MEDS: URSODIOL 300 MG CAP PO SCH ×2 (08:47→20:30)
[2018-02-22] MEDS: PANTOPRAZOLE SODIUM 40 MG TAB PO SCH (08:47)
[2018-02-22] MEDS: CHOLECALCIFEROL VIT D3 1,000 UNITS TAB PO SCH (08:47)
[2018-02-22] MEDS: ACETAMINOPHEN 500 MG TAB PO SCH ×3 (08:47→21:12)
[2018-02-22] MEDS: ALLOPURINOL 100 MG TAB PO SCH (08:47)
[2018-02-22] MEDS: ATORVASTATIN CALCIUM 40 MG TAB PO SCH (08:47)
[2018-02-22] MEDS: ASPIRIN EC 325 MG TAB PO SCH (08:48)
[2018-02-22] MEDS: FINASTERIDE 5 MG TAB PO SCH (08:48)
--- NOTE | 2018-02-22 08:50 | PDINTPN ---
Head School Custodian Progress Note Assessment/Plan: Assessment/Plan: * End-stage renal disease with history of renal transplant 1998 -dialysis catheter has been placed * Shock-resolved * Coronary artery disease * Non ST elevation [place] -per Cardiology * History of stroke * Atrial fibrillation * L1 compression fracture-Pain reasonably well controlled. Not likely a candidate for surgical intervention * Rib fractures * Disposition-palliative care involved -will transfer to medical surgical floor Subjective: Resting comfortably. No current complaints. Objective: Vital Signs Temp Pulse Resp BP Pulse Ox 36.5 C 96 16 156/49 H 96 02/22/18 04:00 02/22/18 08:33 02/22/18 04:00 02/22/18 08:33 02/22/18 04:00 Laboratory Results 02/22/18 04:05 02/22/18 04:05 02/21/18 02/22/18 02/23/18 05:59 05:59 05:59 Intake Total 2251 2919.1 Output Total 385 450 200 Balance 1866 2469.1 -200 PT 15.5 SEC (12.0-15.0) H 02/19/18 21:20 INR 1.21 (0.83-1.16) H 02/19/18 21:20 - Time Spent With Patient Time Spent With Patient: 35 min of time spent with patient, over 1/2 involved with coordination of care or counseling. Case discussed with nursing Physical Exam - Physical Exam General Appearance: alert, no apparent distress EENT: PERRL/EOMI, other (Bilateral arcus senilis) Neck: non-tender, full range of motion Respiratory: prolonged expiration, No respiratory distress, No wheezing Cardiac/Chest: normal peripheral pulses, regular rate, rhythm Abdomen: normal bowel sounds, non-tender, soft Male Genitalia: deferred Rectal: deferred Skin: normal color, warm/dry Extremities: normal range of motion, non-tender, normal inspection Neuro/Psych: alert ICD10 Worksheet Patient Problems: Problems Problem Status Onset Closed left clavicular fracture Acute Compression fracture of L1 lumbar vertebra Acute Intractable back pain Acute Multiple fractures of ribs, left side, initial encounter for closed fracture Acute Unable to ambulate Acute Acute ischemic stroke Acute Clavicle fracture Acute Dyspnea Acute Elevated troponin Acute Head injury due to trauma Acute Prerenal azotemia Acute Thrombocytosis Acute
[2018-02-22] MEDS ORDERED: POTASSIUM CL 20 MEQ TAB PO ONE (08:57)
[2018-02-22] MEDS: ALFUZOSIN HCL 10 MG PO SCH (09:00)
[2018-02-22] MEDS: LIDOCAINE 4%/MENTHOL 1% PATCH TD SCH (09:00)
[2018-02-22] MEDS: LATANOPROST 0.005% 2.5 ML OPHT DROPS EACHEYE SCH (09:01)
--- NOTE | 2018-02-22 09:05 | CPEKG ---
Test Reason : OPEN Blood Pressure : / mmHG Vent. Rate : 093 BPM Atrial Rate : 000 BPM P-R Int : 149 ms QRS Dur : 129 ms QT Int : 413 ms P-R-T Axes : 000 252 072 degrees QTc Int : 514 ms Ventricular-paced complexes Confirmed by Josep Braswell ([id number]) on 02/22/2018 9:05:00 AM Referred By: Confirmed By:Josep Braswell
--- NOTE | 2018-02-22 09:17 | CPEKG ---
Test Reason : OPEN Blood Pressure : / mmHG Vent. Rate : 095 BPM Atrial Rate : 000 BPM P-R Int : 254 ms QRS Dur : 098 ms QT Int : 372 ms P-R-T Axes : 000 064 -43 degrees QTc Int : 468 ms Accelerated junctional rhythm Anterior infarct, old Nonspecific repol abnormality, diffuse leads ST elevation, inferior leads Prior ECG with ventricular pacing Confirmed by Josep Braswell ([id number]) on 02/22/2018 9:16:55 AM Referred By: Confirmed By:Josep Braswell
--- NOTE | 2018-02-22 15:41 | SOAPPROG ---
SOAP Progress Note Assessment/Plan: Assessment: ESRD, kidney transplant in 1998, baseline creat about 0.8 MAYURI due to hypotension, may have been related to MSO4 Cr 1.1 from 1.3 yesterday without dialysis yesterday (assuming this was not a lab error, patient has recovered renal function) immunosuppression: MMF, Pred and CS-A Bicarb drip stopped this morning Plan: Do not expect that patient will need any further dialysis (assuming today's labs were not an error) Will leave temp dialysis catheter in until 02/23. If AM labs look good, then Ok to pull temp dialysis catheter Not eating and drinking much. I discussed with patient and his that he will need to show that he is eating and drinking before he can be discharged Bedside nurse will let me know if he hasn't had anything to drink since we talked, may need to start some maintenance fluids but would like to hold off. Subjective: Patient still feeling a little dizzy and weird. He doesn't really remember the past 2 days, so say if he is feeling better. Not eating and drinking much. Objective: Vital Signs Temp Pulse Resp BP Pulse Ox 36.5 C 96 15 156/49 H 96 02/22/18 04:00 02/22/18 08:33 02/22/18 08:00 02/22/18 08:33 02/22/18 08:00 Laboratory Results 02/22/18 04:05 02/22/18 04:05 02/21/18 02/22/18 02/23/18 05:59 05:59 05:59 Intake Total 2251 2919.1 Output Total 385 450 200 Balance 1866 2469.1 -200 PT 15.5 SEC (12.0-15.0) H 02/19/18 21:20 INR 1.21 (0.83-1.16) H 02/19/18 21:20 Exam: General- chronically ill-appearing, NAD, frail HEENT- MMM, no gross oral lesions Neck: RIJ temp dialysis catheter Pulm: CTAB, no wheezes or rales, breathing comfortably on RA CV: NRRR, no g/m/r, no LE edema Abd: soft, non-tender, non-distended, +BS Psych: Pleasant, answers questions appropriately ICD10 Worksheet Patient Problems: Problems Problem Status Onset Closed left clavicular fracture Acute Compression fracture of L1 lumbar vertebra Acute Intractable back pain Acute Multiple fractures of ribs, left side, initial encounter for closed fracture Acute Unable to ambulate Acute Acute ischemic stroke Acute Clavicle fracture Acute Dyspnea Acute Elevated troponin Acute Head injury due to trauma Acute Prerenal azotemia Acute Thrombocytosis Acute
--- NOTE | 2018-02-22 18:03 | HOSPPROG ---
Hospitalist Progress Note Assessment/Plan: Assessment: 82 yo M p/w MAYURI, metabolic acidosis, NSTEMI, and hypotension Plan: # hypotension. 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 Oliguric, Hx ESRD w/ transplant, recent baseline Cr 0.8, improving -appreciate renal consult, HD cath in place, no HD today, plan to remove cath tomorrow if Cr continues to recover -cont pred 5, MMF, cyclosporin -off bicarb gtt, hold on further IVF to see if he can maintain stable PO # Metabolic acidosis. Acute, 2/2 above, off bicarb -repeat levels in AM # Hyperglycemia and DM. Acute, adjusted ISS to ACHS, increased lantus # NSTEMI. Suspect type II in setting of above, but also likely has MVD w/ longstanding DM -cont ASA 325, cont hep gtt, statin, added bblocker safely -hold on cath, but if fxnal status improves, can consider either nuc stress vs. cath if renal recovery # Afib. Paroxysmal, hx of CVA /w LUE paresthesias/paresis as residual deficits -restarted coreg at lower dosage -counseled that we are holding eliquis and on hep gtt, will reinitiate PO tomorrow # L1 compression fracture. Causing back pain, NSGY recommended kypho -kypho currently on hold given above -plan on MRI after above resolved -cont pain control, lidoderm/heat/ice -counseled patient and that his current medical status is fragile and, if pain permits, would recommend holding on IR kypho in the short and term and gauge whether pain can be controlled w/o intervention # Rib fractures. Cont pain mgmt, IS # Acute hyperkalemia. Resolved Diet. Low K PPx. High risk, hep gtt Code. DNR per patient discussion today w/ MDPOA, confirmed Dispo. ADD uncertain, remains critically ill Subjective: minimal back pain, no further bleeding at HD cath site Objective: Vital Signs Temp Pulse Resp BP Pulse Ox 36.4 C 78 19 116/57 L 97 02/22/18 16:11 02/22/18 16:11 02/22/18 16:11 02/22/18 16:11 02/22/18 16:11 Laboratory Results 02/22/18 04:05 02/22/18 04:05 02/21/18 02/22/18 02/23/18 05:59 05:59 05:59 Intake Total 2251 2919.1 Output Total 385 450 200 Balance 1866 2469.1 -200 PT 15.5 SEC (12.0-15.0) H 02/19/18 21:20 INR 1.21 (0.83-1.16) H 02/19/18 21:20 - Time Spent With Patient Time Spent with Patient: greater than 35 minutes Time Spent with Patient: Greater than 35 minutes spent on this patients care, greater than 50% of time spent counseling, educating, and coordinating care regarding the above mentioned plan. - Physical Exam Constitutional: not in pain, chronically ill appearing, No uncomfortable Eyes: other (blind) Cardiovascular: systolic murmur (I/ at all valves), irregularly irregular, edema (trace bilat LE), No tachycardia Respiratory: no respiratory distress, no rales or rhonchi, clear to auscultation Gastrointestinal: normoactive bowel sounds, soft, non-tender abdomen, no palpable masses Skin: other (no sig bleeding at cath site) Neurologic: AAOx3 Psychiatric: interacting appropriately, not anxious, not encephalopathic, thought process linear ICD10 Worksheet Patient Problems: Problems Problem Status Onset Dyspnea Acute Elevated troponin Acute Thrombocytosis Acute Prerenal azotemia Acute Acute ischemic stroke Acute Clavicle fracture Acute Head injury due to trauma Acute Unable to ambulate Acute Closed left clavicular fracture Acute Intractable back pain Acute Multiple fractures of ribs, left side, initial encounter for closed fracture Acute Compression fracture of L1 lumbar vertebra Acute
[2018-02-22] MEDS: oxyCODONE IR 5 MG TAB PO PRN (20:30)
[2018-02-23] MEDS ORDERED: POTASSIUM CL 20 MEQ TAB PO ONE (08:48)
[2018-02-23] MEDS: ALLOPURINOL 100 MG TAB PO SCH (09:15)
[2018-02-23] MEDS: CHOLECALCIFEROL VIT D3 1,000 UNITS TAB PO SCH (09:15)
[2018-02-23] MEDS: PANTOPRAZOLE SODIUM 40 MG TAB PO SCH (09:15)
[2018-02-23] MEDS: predniSONE 5 MG TAB PO SCH (09:15)
[2018-02-23] MEDS: FINASTERIDE 5 MG TAB PO SCH (09:15)
[2018-02-23] MEDS: URSODIOL 300 MG CAP PO SCH ×2 (09:15→23:04)
[2018-02-23] MEDS: LATANOPROST 0.005% 2.5 ML OPHT DROPS EACHEYE SCH (09:15)
[2018-02-23] MEDS: CYCLOSPORINE MODIFIED 25 MG PO SCH ×2 (09:16→23:05)
[2018-02-23] MEDS: ACETAMINOPHEN 500 MG TAB PO SCH ×3 (09:16→23:05)
[2018-02-23] MEDS: MYCOPHENOLATE MOFETIL 250 MG CAP PO SCH ×2 (09:16→23:05)
[2018-02-23] MEDS: INSULIN LISPRO 100 UNIT/ML SC SCH ×4 (09:17→22:51)
[2018-02-23] MEDS: ALFUZOSIN HCL 10 MG PO SCH (09:18)
[2018-02-23] MEDS: SENNOSIDES/DOCUSATE SODIUM TAB PO SCH ×2 (09:20→23:04)
--- NOTE | 2018-02-23 09:21 | SOAPPROG ---
SOAP Progress Note Assessment/Plan: Assessment: MAYURI- -underlying ESRD s/p kidney transplant in 1998, baseline creat about 0.8 -MAYURI due to hypotension, may have been related to morphine _cr improved back to baseline without HD and can d/c HD cath now -continue current immunosuppression: MMF, Pred and CS-A -not taking po well and will add back in some gentle IVF until this improves Met acidosis- bicarb high and gtt d/c off bicarb gtt as of yesterday, giving back some gentle IV NS now HypoK likely bicarb gtt and poor po intake -received 20meq KCL earlier and will give another round this afternoon check mg as well DM2 NSTEMI0 med management for now (heparin, asa, bblocker, statin) Lumbar compression fracture 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 No vomiting. Good UOP. Ambulating with nursing assitance/walker in room when I came by. Objective: Vital Signs Temp Pulse Resp BP Pulse Ox 36.3 C 115 H 14 105/68 91 L 02/23/18 08:35 02/23/18 08:35 02/23/18 08:35 02/23/18 08:35 02/23/18 08:35 Laboratory Results 02/23/18 03:35 02/23/18 03:35 02/22/18 02/23/18 02/24/18 05:59 05:59 05:59 Intake Total 2919.1 1543 Output Total 450 700 175 Balance 2469.1 843 -175 PT 15.5 SEC (12.0-15.0) H 02/19/18 21:20 INR 1.21 (0.83-1.16) H 02/19/18 21:20 Physical Exam - Physical Exam General Appearance: alert, no apparent distress EENT: other (mm dry) Neck: other (RIJ temp HD cath c/d/i) Cardiac/Chest: regular rate, rhythm Abdomen: non-tender, soft, other (no pain over allograft) Skin: warm/dry Extremities: other (no edema) Neuro/Psych: alert, oriented x 3 ICD10 Worksheet Patient Problems: Problems Problem Status Onset Closed left clavicular fracture Acute Compression fracture of L1 lumbar vertebra Acute Intractable back pain Acute Multiple fractures of ribs, left side, initial encounter for closed fracture Acute Unable to ambulate Acute Acute ischemic stroke Acute Clavicle fracture Acute Dyspnea Acute Elevated troponin Acute Head injury due to trauma Acute Prerenal azotemia Acute Thrombocytosis Acute
[2018-02-23] MEDS: APIXABAN 5 MG TAB PO SCH ×2 (09:31→23:05)
[2018-02-23] MEDS: CARVEDILOL 3.125 MG TAB PO SCH (09:31)
[2018-02-23] MEDS: LIDOCAINE 4%/MENTHOL 1% PATCH TD SCH (09:32)
[2018-02-23] MEDS: ATORVASTATIN CALCIUM 40 MG TAB PO SCH (09:32)
[2018-02-23] MEDS: ASPIRIN EC 325 MG TAB PO SCH (09:32)
[2018-02-23] MEDS ORDERED: POTASSIUM CL 20 MEQ/15 ML UDCUP PO ONE ×2 (11:04→14:00)
[2018-02-23] MEDS: NS 1,000 ML IV SCH (11:30)
[2018-02-23] MEDS: INSULIN GLARGINE 100 UNITS/ML UNIT SC SCH (11:31)
[2018-02-23] MEDS: oxyCODONE IR 5 MG TAB PO PRN (13:54)
--- NOTE | 2018-02-23 14:57 | ASMTCMCOM ---
CM Note CM Note Notes: 02/23/2018 Case Management Note Faxed updates to [facility]. Case Management d/c poc: [facility] Case Management to follow. Date Signed: 02/23/2018 02:56 PM Electronically Signed By:Yanelis Whiteside RN
--- NOTE | 2018-02-23 16:03 | ECHO ---
[email or web address] [address] [address] Main: [phone] Fax: Transthoracic Echocardiogram Name: ROSALINE LEWIS MR#: [id number] Study Date: 02/19/2018 Study Time: 01:58 PM Date of : 1935 Age: 82 year(s) Height: 180.3 cm (71 in.) Weight: 58.06 kg (128 lb.) BSA: 1.74 m2 Gender: Male Examination: Echo Indication: Acute hypotension, 70/50, increased Potassium, Hx of pacemaker Image Quality: Contrast: Requested by: BP: 114 mmHg/57 mmHg Heart Rate: Rhythm: Normal sinus rhythm Indication: Acute hypotension, 70/50, increased Potassium, Hx of pacemaker Procedure Staff [employer] Plans Intelligence Officer Chief: Alek Lindquist RDCS Reading Physician: Aislinn Wolfe MD Requesting Provider: Mateo Hernandez Conclusions: Normal size left ventricle. Low normal left ventricular systolic function. The ejection fraction is estimated to be 50-55 %. There is inferior and posterior hypokinesis. Normal size right ventricle. There is a pacemaker lead noted in the right ventricle. Mild to moderate mitral regurgitation. Moderate aortic cusp calcification is present. Slightly elevated aortic valve gradients. No pericardial effusion. Compared with 11/27/2017 inferior and posterior wall motion are slightly worse. PA pressure not able to be estimated on current study. Previously was 44 mm of mercury. Measurements: Chambers Valvular Assessment AV/MV Valvular Assessment TV/PV Normal Normal Normal Name Value Range Name Value Range Name Value Range Ao Trinh (MM): 3.6 cm (2.2 cm-3.7 AV Vmax: 2.20 m/s (1 m/s-1.7 cm) m/s) IVSd (2D): 0.9 cm (0.6 cm-1.1 AV maxP mmHg ( - ) cm) AV meanP mmHg ( - ) LVDd (2D): 4.8 cm (4.2 cm-5.9 LVOT Vmax: 0.83 m/s (0.7 m/s-1.1 cm) m/s) LVDs (2D): 2.5 cm (2.1 cm-4 MV E Vmax: 1.03 m/s ( - ) cm) MV A Vmax: 0.64 m/s ( - ) LVPWd (2D): 1.1 cm (0.6 cm-1 MV E/A: 1.61 ( - ) cm) MV meanP mmHg ( - ) EF Range: 50-55 % Patient: ROSALINE LEWIS Study Date: 02/19/2018 Page 1 of 2 01:58 PM Continued Measurements: Chambers Valvular Assessment AV/MV Name Value Name Value LADs Lon.0 cm MV E' Septal: 0.04 m/s LA Area: 20.8 cm2 MV E/E' Septal: 27.80 LA Volume: 74 ml MV E/E' Lateral: 12.30 LA Volume Index: 42.5 ml/m2 MV VTI: 28.00 cm Findings: Left Ventricle: Normal size left ventricle. Low normal left ventricular systolic function. The ejection fraction is estimated to be 50-55 %. There is inferior and posterior hypokinesis. Right Ventricle: Normal size right ventricle. There is a pacemaker lead noted in the right ventricle. Left Atrium: The left atrium is moderately dilated. Right Atrium: The right atrium is normal in size. Mitral Valve: Moderate mitral valve leaflet calcification is present. Mild to moderate mitral regurgitation. Aortic Valve: The aortic valve is tri-leaflet. Moderate aortic cusp calcification is present. There is no significant aortic valve regurgitation. Slightly elevated aortic valve gradients. Tricuspid Valve: There is no significant tricuspid valve regurgitation. Pulmonic Valve: Pulmonary valve not well visualized. Aorta: The aorta is normal. Pericardium: No pericardial effusion. (No Signature Object) Patient: ROSALINE LEWIS Study Date: 02/19/2018 Page 2 of 2 01:58 PM [id number]
--- NOTE | 2018-02-23 18:58 | HOSPPROG ---
Hospitalist Progress Note Assessment/Plan: Assessment: 82 yo M p/w MAYURI, metabolic acidosis, NSTEMI, and hypotension, c/b acute metabolic encephalopathy today Plan: # Acute metabolic encephalopathy. New problem, further w/u indicated. Evidenced by disorientation, somnolence, poorly arousable, all of which are acute changes from days prior, most likely 2/2 metabolic effects of UTI -leukocytosis, elevated CRP, UA positive for possible UTI (evolved from UA on admission) -HCT obtained, normal; CXR w/o infiltrate (personally interpreted) -tx likely UTI, gauge cog response -if no improvement despite Abx, get LP (d/w ) # UTI. Likely cause of acute mental status changes today, w/ change in UA from prior, ongoing leukocytosis -D#1 CTX -UCx/BCx pending -monitor WBC # NSTEMI. Suspect type II in setting of above, but also likely has MVD w/ longstanding DM -cont ASA 325, cont hep gtt, statin, added bblocker safely -hold on cath, can consider either nuc stress vs. cath if fxnal status improves # Afib. Paroxysmal, hx of CVA /w LUE paresthesias/paresis as residual deficits -restarted coreg and eliquis # L1 compression fracture. Causing back pain, NSGY recommended kypho -kypho currently on hold given above -plan on MRI and IR consult for kypho in outpt setting if pain reoccurs -cont pain control, lidoderm/heat/ice # MAYURI. Oliguric, Hx ESRD w/ transplant, recent baseline Cr 0.8, resolved -d/w Dr. Goodwin, she recommends HD cath removal, maintenance IVF given poor PO intake today -cont pred 5, MMF, cyclosporin # hypotension. 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 Acute, 2/2 above, off bicarb # Hyperglycemia and DM. Acute, adjusted ISS to ACHS, increased lantus # Rib fractures. Cont pain mgmt, IS # Acute hyperkalemia. Resolved # Peripheral arterial disease. Resulting in R great toe ulcer, does not appear infected, has outpt f/u Diet. ADA PPx. High risk, eliquis Code. DNR per patient discussion today w/ MDPOA, confirmed Dispo. ADD uncertain, acute worsening today, d/w case mgmt re: SNF Subjective: less responsive/oriented today Objective: Vital Signs Temp Pulse Resp BP Pulse Ox 35.8 C L 109 H 8 L 111/62 100 02/23/18 16:18 02/23/18 16:18 02/23/18 16:18 02/23/18 16:18 02/23/18 18:00 Laboratory Results 02/23/18 16:00 02/23/18 03:35 02/22/18 02/23/18 02/24/18 05:59 05:59 05:59 Intake Total 2919.1 1543 188 Output Total 450 700 825 Balance 2469.1 843 -637 PT 15.5 SEC (12.0-15.0) H 02/19/18 21:20 INR 1.21 (0.83-1.16) H 02/19/18 21:20 - Physical Exam Constitutional: no apparent distress, not in pain, chronically ill appearing, No uncomfortable Cardiovascular: systolic murmur (II/ at sternum), No irregularly irregular, No tachycardia, No edema Respiratory: no respiratory distress, no rales or rhonchi, clear to auscultation Gastrointestinal: normoactive bowel sounds, soft, non-tender abdomen, No distension Skin: other (necrotic ulcer R great toe distally w/o erythema/induration/ tenderness) Neurologic: other (AAOx1 (person only)) Psychiatric: not anxious, encephalopathic, flat affect, poor memory, No agitated ICD10 Worksheet Patient Problems: Problems Problem Status Onset Dyspnea Acute Elevated troponin Acute Thrombocytosis Acute Prerenal azotemia Acute Acute ischemic stroke Acute Clavicle fracture Acute Head injury due to trauma Acute Unable to ambulate Acute Closed left clavicular fracture Acute Intractable back pain Acute Multiple fractures of ribs, left side, initial encounter for closed fracture Acute Compression fracture of L1 lumbar vertebra Acute
[2018-02-23] MEDS: D50W 25 GM/50 ML SYR IVP PRN ×2 (21:11→23:56)
[2018-02-24] MEDS: CARVEDILOL 3.125 MG TAB PO SCH ×3 (01:24→18:34)
[2018-02-24] MEDS: PATCH REMOVAL 1 EA PATCH TD SCH ×2 (04:14→21:46)
[2018-02-24 04:16] LABS: PLATELET COUNT 422 10^3/uL (150-400)
[2018-02-24] MEDS: D50W 25 GM/50 ML SYR IVP PRN (05:22)
[2018-02-24] MEDS: INSULIN LISPRO 100 UNIT/ML SC SCH ×4 (08:11→21:51)
[2018-02-24] MEDS: ACETAMINOPHEN 500 MG TAB PO SCH ×3 (08:23→21:43)
[2018-02-24] MEDS: ATORVASTATIN CALCIUM 40 MG TAB PO SCH (08:23)
[2018-02-24] MEDS: ALLOPURINOL 100 MG TAB PO SCH (08:23)
[2018-02-24] MEDS: APIXABAN 5 MG TAB PO SCH ×2 (08:24→21:51)
[2018-02-24] MEDS: ALFUZOSIN HCL 10 MG PO SCH (08:26)
[2018-02-24] MEDS: ASPIRIN EC 325 MG TAB PO SCH (08:27)
[2018-02-24] MEDS: INSULIN GLARGINE 100 UNITS/ML UNIT SC SCH (08:28)
[2018-02-24] MEDS: FINASTERIDE 5 MG TAB PO SCH (08:31)
[2018-02-24] MEDS: CYCLOSPORINE MODIFIED 25 MG PO SCH ×2 (08:31→21:43)
[2018-02-24] MEDS: CHOLECALCIFEROL VIT D3 1,000 UNITS TAB PO SCH (08:31)
[2018-02-24] MEDS: LIDOCAINE 4%/MENTHOL 1% PATCH TD SCH (09:12)
[2018-02-24] MEDS: SENNOSIDES/DOCUSATE SODIUM TAB PO SCH ×2 (09:15→21:44)
[2018-02-24] MEDS: MYCOPHENOLATE MOFETIL 250 MG CAP PO SCH ×2 (09:15→21:45)
[2018-02-24] MEDS: predniSONE 5 MG TAB PO SCH (09:15)
[2018-02-24] MEDS: PANTOPRAZOLE SODIUM 40 MG TAB PO SCH (09:15)
[2018-02-24] MEDS: URSODIOL 300 MG CAP PO SCH ×2 (09:18→21:45)
[2018-02-24] MEDS: LATANOPROST 0.005% 2.5 ML OPHT DROPS EACHEYE SCH (09:18)
--- NOTE | 2018-02-24 10:50 | SOAPPROG ---
SOAP Progress Note Assessment/Plan: Assessment/Plan: 82 y/o M s/p renal txp 1998 who presented after a fall with MAYURI and hyperkalemia. MAYURI- -underlying ESRD s/p kidney transplant in 1998, baseline creat about 0.8 -MAYURI 2/2 to UTI and possible ATN -Cr improved back to baseline (0.7 today), dialysis catheter removed -continue current immunosuppression: MMF, Pred and CSA -continue gently IVF while admitted -on abx for UTI Met acidosis-holding bicarb, now high HypoK -2/2 to poor po -continue repletion may be contributing to elevated bicarb DM2 -NSTEMI0 med management for now (heparin, asa, bblocker, statin) Lumbar compression fracture -very decompensated -looking at SNFs 02/24/18 11:36 02/24/18 11:37 Subjective: Patient awakens to voice. Admits he still isn't eating well. coming in later. Objective: Vital Signs Temp Pulse Resp BP Pulse Ox 36.8 C 43 L 16 100/48 L 99 02/24/18 04:00 02/24/18 08:24 02/24/18 04:00 02/24/18 08:24 02/24/18 04:00 Microbiology 02/23/18 18:24 Respiratory Panel (PCR) - Final Nasal, Sinus - Swab No Organism Detected Laboratory Results 02/24/18 04:00 02/24/18 04:00 02/23/18 02/24/18 02/25/18 05:59 05:59 05:59 Intake Total 1543 1438 Output Total 700 1625 150 Balance 843 -187 -150 PT 15.5 SEC (12.0-15.0) H 02/19/18 21:20 INR 1.21 (0.83-1.16) H 02/19/18 21:20 Physical Exam - Physical Exam General Appearance: WD/WN, alert, mild distress, thin EENT: PERRL/EOMI, pharynx normal Neck: non-tender, full range of motion, supple, other (bandage over catheter site) Respiratory: chest non-tender, lungs clear, normal breath sounds Cardiac/Chest: normal peripheral pulses, regular rate, rhythm Abdomen: normal bowel sounds, non-tender, soft Back: Normal inspection Skin: normal color, warm/dry Extremities: normal range of motion, non-tender Neuro/Psych: normal mood/affect, oriented x 3 ICD10 Worksheet Patient Problems: Problems Problem Status Onset Closed left clavicular fracture Acute Compression fracture of L1 lumbar vertebra Acute Intractable back pain Acute Multiple fractures of ribs, left side, initial encounter for closed fracture Acute Unable to ambulate Acute Acute ischemic stroke Acute Clavicle fracture Acute Dyspnea Acute Elevated troponin Acute Head injury due to trauma Acute Prerenal azotemia Acute Thrombocytosis Acute
--- NOTE | 2018-02-24 13:30 | HOSPPROG ---
Hospitalist Progress Note Assessment/Plan: 82M s/p renal transplant p/w back pain and L1 compression fracture. Developed hypotension which precipitated renal failure (required HD) and an ID (managed medically). Increased confusion 02/23 lead to dx of UTI. # L1 compression fracture and severe back pain - should get kyphoplasty with IR prior to dc - can't get MRI with ppm, plan CT L-spine - eliquis would need to be held # UTI - GNRNLF, but symptoms improving - cont rocephin D#2 # NSTEMI - s/p heparin gtt - cont asa/eliquis/statin - low dose BB started - need to be cautious with hypotension # renal transplant - cont MMF, cyclosporin, pred # DM - hypoglycemic, hold lantus and follow closely # a-fib - cont eliquis and BB # CVA - asa/statin/eliquis # MAYURI with hyperkalemia - resolved # hypotension - resolved with IVF # rib fractures - pain mgmt # PAD with great toe ulcer Subjective: less confused today Objective: Vital Signs Temp Pulse Resp BP Pulse Ox 36.8 C 43 L 16 100/48 L 99 02/24/18 04:00 02/24/18 08:24 02/24/18 04:00 02/24/18 08:24 02/24/18 04:00 Microbiology 02/23/18 18:24 Respiratory Panel (PCR) - Final Nasal, Sinus - Swab No Organism Detected Laboratory Results 02/24/18 04:00 02/24/18 04:00 02/23/18 02/24/18 02/25/18 05:59 05:59 05:59 Intake Total 1543 1438 Output Total 700 1625 150 Balance 843 -187 -150 PT 15.5 SEC (12.0-15.0) H 02/19/18 21:20 INR 1.21 (0.83-1.16) H 02/19/18 21:[address] head reviewed - Physical Exam Constitutional: uncomfortable (lying on back, grimaces with any movement) Cardiovascular: no murmur, rub, or gallop, irregularly irregular Respiratory: no rales or rhonchi, clear to auscultation, No inspiratory crackles , No bronchial breath sounds Gastrointestinal: soft, non-tender abdomen, tenderness, No guarding, No rebound , No distension ICD10 Worksheet Patient Problems: Problems Problem Status Onset Dyspnea Acute Elevated troponin Acute Thrombocytosis Acute Prerenal azotemia Acute Acute ischemic stroke Acute Clavicle fracture Acute Head injury due to trauma Acute Unable to ambulate Acute Closed left clavicular fracture Acute Intractable back pain Acute Multiple fractures of ribs, left side, initial encounter for closed fracture Acute Compression fracture of L1 lumbar vertebra Acute
[2018-02-24] MEDS ORDERED: OXYCODONE/APAP 5/325 TAB PO PRN (13:40)
[2018-02-24] MEDS: oxyCODONE IR 5 MG TAB PO PRN ×2 (14:03→21:45)
[2018-02-24] MEDS: CYCLOBENZAPRINE 10 MG TAB PO PRN ×2 (14:03→21:56)
[2018-02-24] MEDS ORDERED: MAGNESIUM SULF 2 GM/WATER 50 ML IV ONE (15:51)
[2018-02-24] MEDS ORDERED: POTASSIUM CL 20 MEQ TAB PO ONE (15:51)
[2018-02-24] MEDS: NS 1,000 ML IV SCH (20:16)
[2018-02-25 04:24] LABS: PLATELET COUNT 390 10^3/uL (150-400)
[2018-02-25] MEDS: ALFUZOSIN HCL 10 MG PO SCH (08:44)
[2018-02-25] MEDS: NS 1,000 ML IV SCH (08:44)
[2018-02-25] MEDS: LIDOCAINE 4%/MENTHOL 1% PATCH TD SCH (08:44)
[2018-02-25] MEDS: LATANOPROST 0.005% 2.5 ML OPHT DROPS EACHEYE SCH (08:45)
[2018-02-25] MEDS: FINASTERIDE 5 MG TAB PO SCH (08:47)
[2018-02-25] MEDS: predniSONE 5 MG TAB PO SCH (08:47)
[2018-02-25] MEDS: APIXABAN 5 MG TAB PO SCH (08:47)
[2018-02-25] MEDS: MYCOPHENOLATE MOFETIL 250 MG CAP PO SCH ×2 (08:47→19:44)
[2018-02-25] MEDS: PANTOPRAZOLE SODIUM 40 MG TAB PO SCH (08:47)
[2018-02-25] MEDS: ALLOPURINOL 100 MG TAB PO SCH (08:47)
[2018-02-25] MEDS: INSULIN LISPRO 100 UNIT/ML SC SCH ×4 (08:47→23:20)
[2018-02-25] MEDS: ASPIRIN EC 325 MG TAB PO SCH (08:47)
[2018-02-25] MEDS: CARVEDILOL 3.125 MG TAB PO SCH ×2 (08:48→17:54)
[2018-02-25] MEDS: ATORVASTATIN CALCIUM 40 MG TAB PO SCH (08:48)
[2018-02-25] MEDS: SENNOSIDES/DOCUSATE SODIUM TAB PO SCH ×2 (08:48→19:44)
[2018-02-25] MEDS: URSODIOL 300 MG CAP PO SCH ×2 (08:48→19:45)
[2018-02-25] MEDS: CHOLECALCIFEROL VIT D3 1,000 UNITS TAB PO SCH (08:48)
[2018-02-25] MEDS: ACETAMINOPHEN 500 MG TAB PO SCH ×3 (08:48→22:44)
[2018-02-25] MEDS: CYCLOSPORINE MODIFIED 25 MG PO SCH ×2 (08:48→19:44)
[2018-02-25] MEDS: oxyCODONE IR 5 MG TAB PO PRN ×2 (11:31→17:53)
--- NOTE | 2018-02-25 11:57 | HOSPPROG ---
Hospitalist Progress Note Assessment/Plan: 82M s/p renal transplant p/w back pain and L1 compression fracture. Developed hypotension which precipitated renal failure (required HD) and an SD (managed medically). Increased confusion 02/23 lead to dx of UTI. # L1 compression fracture and severe back pain - plan to hold eliquis today, likely kyphoplasty on Monday # UTI d/t kleb pna - cont rocephin D#07/05 - could change to PO tomorrow # NSTEMI - s/p heparin gtt - cont asa/eliquis (hold)/statin - low dose BB started - need to be cautious with hypotension # renal transplant - cont MMF, cyclosporin, pred # DM - had an episode of hypoglycemia, now glucs elevated - start glargine 10 (home dose 16) # a-fib - cont eliquis (on hold) and BB # CVA - asa/statin # MAYURI with hyperkalemia - resolved # hypotension - resolved with IVF # rib fractures - pain mgmt # PAD with great toe ulcer Subjective: still c/o severe back pain Objective: Vital Signs Temp Pulse Resp BP Pulse Ox 36.7 C 67 16 144/71 H 99 02/25/18 08:03 02/25/18 08:48 02/25/18 08:03 02/24/18 18:34 02/25/18 08:03 Microbiology 02/23/18 17:20 Urine Culture - Final Urine,Clean Catch Klebsiella Pneumoniae Ssp Pneu 02/19/18 13:00 Blood Culture - Final Blood 02/19/18 11:40 Blood Culture - Final Blood Laboratory Results 02/25/18 04:10 02/25/18 04:10 02/24/18 02/25/18 02/26/18 05:59 05:59 05:59 Intake Total 1438 1614 350 Output Total 1625 450 50 Balance -187 1164 300 PT 15.5 SEC (12.0-15.0) H 02/19/18 21:20 INR 1.21 (0.83-1.16) H 02/19/18 21:20 - Physical Exam Constitutional: uncomfortable Cardiovascular: regular rate and rhythym, systolic murmur, No irregularly irregular Respiratory: no respiratory distress, no rales or rhonchi Gastrointestinal: soft, non-tender abdomen, no palpable masses, No guarding, No rebound, No distension ICD10 Worksheet Patient Problems: Problems Problem Status Onset Dyspnea Acute Elevated troponin Acute Thrombocytosis Acute Prerenal azotemia Acute Acute ischemic stroke Acute Clavicle fracture Acute Head injury due to trauma Acute Unable to ambulate Acute Closed left clavicular fracture Acute Intractable back pain Acute Multiple fractures of ribs, left side, initial encounter for closed fracture Acute Compression fracture of L1 lumbar vertebra Acute
[2018-02-25] MEDS: CYCLOBENZAPRINE 10 MG TAB PO PRN ×2 (12:38→19:45)
[2018-02-25] MEDS: INSULIN GLARGINE 100 UNITS/ML UNIT SC SCH (12:38)
--- NOTE | 2018-02-25 14:37 | SOAPPROG ---
SOAP Progress Note Assessment/Plan: Assessment/Plan: 82 y/o M s/p renal txp 1998 who presented after a fall with MAYURI and hyperkalemia. MAYURI- -underlying ESRD s/p kidney transplant in 1998, baseline creat about 0.8 -MAYUIR 2/2 to UTI and possible ATN -Cr improved back to baseline (0.7 today), dialysis catheter removed -continue current immunosuppression: MMF, Pred and CSA -continue gently IVF while admitted -on abx for UTI, 7 day course recommended Met acidosis-holding bicarb, now high HypoK -2/2 to poor po -continue repletion, may perpetuate alkalosis Lumbar compression fracture -very decompensated -looking at SNFs -considering kyphoplasty on Monday Will continue to follow. Please contact if ?'s. 02/25/18 14:36 Subjective: Patient still not eating well. May get surgery for back this week. Objective: Vital Signs Temp Pulse Resp BP Pulse Ox 36.4 C 80 14 122/74 H 98 02/25/18 11:56 02/25/18 11:56 02/25/18 11:56 02/25/18 11:56 02/25/18 11:56 Microbiology 02/23/18 17:20 Urine Culture - Final Urine,Clean Catch Klebsiella Pneumoniae Ssp Pneu 02/19/18 13:00 Blood Culture - Final Blood 02/19/18 11:40 Blood Culture - Final Blood Laboratory Results 02/25/18 04:10 02/25/18 04:10 02/24/18 02/25/18 02/26/18 05:59 05:59 05:59 Intake Total 1438 1614 350 Output Total 1625 450 50 Balance -187 1164 300 PT 15.5 SEC (12.0-15.0) H 02/19/18 21:20 INR 1.21 (0.83-1.16) H 02/19/18 21:20 Physical Exam - Physical Exam General Appearance: alert, mild distress, thin EENT: PERRL/EOMI Neck: non-tender, full range of motion, supple Respiratory: chest non-tender, decreased breath sounds Cardiac/Chest: normal peripheral pulses, regular rate, rhythm Abdomen: normal bowel sounds, non-tender, soft Skin: warm/dry, pallor Extremities: normal range of motion, non-tender Neuro/Psych: no motor/sensory deficits, alert ICD10 Worksheet Patient Problems: Problems Problem Status Onset Closed left clavicular fracture Acute Compression fracture of L1 lumbar vertebra Acute Intractable back pain Acute Multiple fractures of ribs, left side, initial encounter for closed fracture Acute Unable to ambulate Acute Acute ischemic stroke Acute Clavicle fracture Acute Dyspnea Acute Elevated troponin Acute Head injury due to trauma Acute Prerenal azotemia Acute Thrombocytosis Acute
[2018-02-25] MEDS: PATCH REMOVAL 1 EA PATCH TD SCH (23:21)
[2018-02-26] MEDS: oxyCODONE IR 5 MG TAB PO PRN ×2 (05:55→10:12)
[2018-02-26] MEDS: MYCOPHENOLATE MOFETIL 250 MG CAP PO SCH ×2 (09:07→19:32)
[2018-02-26] MEDS: ACETAMINOPHEN 500 MG TAB PO SCH ×3 (09:08→21:54)
[2018-02-26] MEDS: SENNOSIDES/DOCUSATE SODIUM TAB PO SCH ×2 (09:08→19:31)
[2018-02-26] MEDS: URSODIOL 300 MG CAP PO SCH ×2 (09:08→19:31)
[2018-02-26] MEDS: FINASTERIDE 5 MG TAB PO SCH (09:09)
[2018-02-26] MEDS: PANTOPRAZOLE SODIUM 40 MG TAB PO SCH (09:09)
[2018-02-26] MEDS: predniSONE 5 MG TAB PO SCH (09:09)
[2018-02-26] MEDS: ATORVASTATIN CALCIUM 40 MG TAB PO SCH (09:09)
[2018-02-26] MEDS: CYCLOSPORINE MODIFIED 25 MG PO SCH ×2 (09:09→19:31)
[2018-02-26] MEDS: CHOLECALCIFEROL VIT D3 1,000 UNITS TAB PO SCH (09:09)
[2018-02-26] MEDS: INSULIN GLARGINE 100 UNITS/ML UNIT SC SCH (09:10)
[2018-02-26] MEDS: CARVEDILOL 3.125 MG TAB PO SCH ×2 (09:10→18:12)
[2018-02-26] MEDS: ALLOPURINOL 100 MG TAB PO SCH (09:10)
[2018-02-26] MEDS: INSULIN LISPRO 100 UNIT/ML SC SCH ×4 (09:11→22:03)
[2018-02-26] MEDS: LIDOCAINE 4%/MENTHOL 1% PATCH TD SCH (09:12)
[2018-02-26] MEDS: LATANOPROST 0.005% 2.5 ML OPHT DROPS EACHEYE SCH (09:13)
[2018-02-26] MEDS: ALFUZOSIN HCL 10 MG PO SCH (09:13)
[2018-02-26] MEDS: ASPIRIN EC 325 MG TAB PO SCH (09:47)
--- NOTE | 2018-02-26 10:05 | ASMTCMCOM ---
CM Note CM Note Notes: 02/26/2018 Case Management Note Discussed SNF placement with daughter Samantha [phone]. [facility] [address] [phone] . Faxed records and referral via [facility]. Called Mary Lou on the phone. Rep from SNF will visit pt on Mon or after PT clears from upcoming kyphoplasty procedure. Case Management d/c poc: [facility] SNF rehab pending acceptance vs [facility] Case Management to follow. Date Signed: 02/26/2018 10:04 AM Electronically Signed By:Yanelis Whiteside RN
--- NOTE | 2018-02-26 11:36 | SOAPPROG ---
SOAP Progress Note Assessment/Plan: Assessment/Plan: 82 y/o M s/p renal txp 1998 who presented after a fall with MAYURI requiring HD. MAYURI- -underlying ESRD s/p kidney transplant in 1998, baseline creat about 0.8 -MAYURI 2/2 to UTI and possible ATN now resolved -continue current immunosuppression: MMF, Pred and CSA -continue gently IVF while admitted -on abx for UTI, 7 day course recommended HypoK -2/2 to poor po -continue repletion, may perpetuate alkalosis Lumbar compression fracture -very decompensated -looking at SNFs -considering kyphoplasty on Monday -needs good BS control prior to procedure Will continue to follow. Please contact if ?'s. 02/26/18 11:34 Subjective: Patient unchanged. BS's running 200's and BP low this am. Objective: Vital Signs Temp Pulse Resp BP Pulse Ox 36.7 C 82 12 123/71 H 92 02/26/18 11:12 02/26/18 11:12 02/26/18 11:12 02/26/18 11:12 02/26/18 11:12 Microbiology 02/23/18 17:20 Urine Culture - Final Urine,Clean Catch Klebsiella Pneumoniae Ssp Pneu Laboratory Results 02/25/18 04:10 02/25/18 04:10 02/25/18 02/26/18 02/27/18 05:59 05:59 05:59 Intake Total 1614 1300 Output Total 450 400 280 Balance 1164 900 -280 PT 15.5 SEC (12.0-15.0) H 02/19/18 21:20 INR 1.21 (0.83-1.16) H 02/19/18 21:20 Physical Exam - Physical Exam General Appearance: alert, mild distress, thin EENT: PERRL/EOMI, normal ENT inspection Neck: non-tender, supple Respiratory: chest non-tender, normal breath sounds Cardiac/Chest: normal peripheral pulses, regular rate, rhythm Abdomen: normal bowel sounds, non-tender, soft Skin: pallor Extremities: normal range of motion Neuro/Psych: oriented x 3, depressed affect ICD10 Worksheet Patient Problems: Problems Problem Status Onset Closed left clavicular fracture Acute Compression fracture of L1 lumbar vertebra Acute Intractable back pain Acute Multiple fractures of ribs, left side, initial encounter for closed fracture Acute Unable to ambulate Acute Acute ischemic stroke Acute Clavicle fracture Acute Dyspnea Acute Elevated troponin Acute Head injury due to trauma Acute Prerenal azotemia Acute Thrombocytosis Acute
[2018-02-26] MEDS ORDERED: CYCLOBENZAPRINE 10 MG TAB PO PRN (14:31)
[2018-02-26] MEDS ORDERED: oxyCODONE IR 5 MG TAB PO PRN (14:31)
--- NOTE | 2018-02-26 14:38 | HOSPPROG ---
Hospitalist Progress Note Assessment/Plan: Assessment: 82 yo M p/w MAYURI, metabolic acidosis, NSTEMI, and hypotension, c/b acute metabolic encephalopathy 2/2 UTI Plan: # Acute metabolic encephalopathy. Evidenced by disorientation, somnolence, poorly arousable, all of which are acute changes from days prior, most likely 2/ 2 metabolic effects of UTI, exacerbated by toxic effects of pain Rx -per , mental status improved yesterday and this AM, then somnolent s/p pain Rx -reduce dosages of pain RX # Klebsiella UTI. D#4/ CTX # NSTEMI. Suspect type II in setting of above, but also likely has MVD w/ longstanding DM -cont ASA 325, cont hep gtt, bblocker -can consider either nuc stress vs. cath if fxnal status improves # Afib. Paroxysmal, hx of CVA /w LUE paresthesias/paresis as residual deficits, currently in Afib on tele (personally interpreted) -restarted coreg # L1 compression fracture. Causing ongoing, pervasive back pain, NSGY recommended kypho -kypho tomorrow s/p holding eliquis/ASA -cont pain control, lidoderm/heat/ice, PRN flex/oxy, karen tylenol # MAYURI. Oliguric, Hx ESRD w/ transplant, recent baseline Cr 0.8, resolved -cont pred 5, MMF, cyclosporin -given poor PO intake today, start NS 100/hr # hypotension. 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 Acute, 2/2 above, off bicarb # Hypoglycemia & Hyperglycemia in setting of DM. Acute, adjusted ISS to ACHS, increase lantus tomorrow once resume PO # Rib fractures. Cont pain mgmt, IS # Acute hyperkalemia. Resolved # Peripheral arterial disease. Resulting in R great toe ulcer, does not appear infected, has outpt f/u # RUE edema. US neg for DVT Diet. ADA PPx. High risk, eliquis Code. DNR per patient discussion today w/ MDPOA, confirmed Dispo. ADD uncertain, acute worsening today mental status s/p pain Rx, kypho tomorrow, d/[facility] High-level medical complexity, high risk for worsening morbidity and/or mortality secondary issues outlined above. Subjective: back pain, relieved w/ PO pain Rx, now somnolent Objective: Vital Signs Temp Pulse Resp BP Pulse Ox 36.7 C 82 12 123/71 H 92 02/26/18 11:12 02/26/18 11:12 02/26/18 11:12 02/26/18 11:12 02/26/18 11:12 Laboratory Results 02/25/18 04:10 02/25/18 04:10 02/25/18 02/26/18 02/27/18 05:59 05:59 05:59 Intake Total 1614 1300 Output Total 450 400 280 Balance 1164 900 -280 PT 15.5 SEC (12.0-15.0) H 02/19/18 21:20 INR 1.21 (0.83-1.16) H 02/19/18 21:20 - Physical Exam Constitutional: no apparent distress, not in pain, chronically ill appearing, cachectic, No uncomfortable Cardiovascular: systolic murmur (II/ at apex), irregularly irregular, No tachycardia, No edema Respiratory: reduced air movement (poor insp effort), No expiratory wheeze, No inspiratory crackles, No bronchial breath sounds, No respiratory distress Gastrointestinal: normoactive bowel sounds, soft, non-tender abdomen, No guarding, No distension Psychiatric: not anxious, encephalopathic, flat affect, other (somnolent, arousable to verbal stimuli), No agitated ICD10 Worksheet Patient Problems: Problems Problem Status Onset Dyspnea Acute Elevated troponin Acute Thrombocytosis Acute Prerenal azotemia Acute Acute ischemic stroke Acute Clavicle fracture Acute Head injury due to trauma Acute Unable to ambulate Acute Closed left clavicular fracture Acute Intractable back pain Acute Multiple fractures of ribs, left side, initial encounter for closed fracture Acute Compression fracture of L1 lumbar vertebra Acute
[2018-02-26] MEDS: NS 1,000 ML IV SCH (15:08)
--- NOTE | 2018-02-26 16:20 | WOCRNPDOC ---
WOCRN Advanced Assessment Note - Skin Integrity Problem, Advanced Assess Right Toe Diabetic Ulcer Dressing Type: Band Aid Dressing Description: Intact, Shadowed Closure Description: Not Approximated Exudate Amount: Minimal Exudate Color: Reddish/Yellow Exudate Characteristic(s): Dried, Serosanguinous Integumentary Issue Intervention: Dressing Changed Kari Wound Tissue: Erythema, Swollen, Painful/Tender Kari Wound Swelling: Mild Wound Bed Color: Brown, Red, White Wound Bed Constitution: Adhered Slough Site Measurement - Head-to-Toe Length X Width X Depth (cm): 0.4x0.8x exudate/ slough Skin Integrity Problem Comment: Patient has history of DM and PAD. 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 Patient sees Dr. Pace outpatient. GERMAN Gonzáles in room for care, as well as the patient's . Wound bed cleaned with normal saline and gauze. Wound was dry, and although band aid on toe had dried exudate in it the wound was not actively draining during assessment. Erythema extends around wound bed circumferentially, forming a [place] approximately 0.4mm around wound. According to patient's , patient has order from Dr Pace for bacitracin over wound with band aid at home. Discussed patient plan of care with Dr Pace. Wound care will follow.
[2018-02-26] MEDS: POLYETHYLENE GLYCOL 3350 17 GM PKT PO PRN (16:40)
[2018-02-26] MEDS: PATCH REMOVAL 1 EA PATCH TD SCH (19:32)
[2018-02-27] MEDS: INSULIN LISPRO 100 UNIT/ML SC SCH ×4 (08:31→21:36)
[2018-02-27] MEDS: LIDOCAINE 4%/MENTHOL 1% PATCH TD SCH (08:57)
[2018-02-27] MEDS: FINASTERIDE 5 MG TAB PO SCH (08:58)
[2018-02-27] MEDS: MYCOPHENOLATE MOFETIL 250 MG CAP PO SCH ×2 (08:58→20:27)
[2018-02-27] MEDS: CYCLOSPORINE MODIFIED 25 MG PO SCH ×2 (08:59→20:25)
[2018-02-27] MEDS: PANTOPRAZOLE SODIUM 40 MG TAB PO SCH (08:59)
[2018-02-27] MEDS: URSODIOL 300 MG CAP PO SCH ×2 (08:59→20:26)
[2018-02-27] MEDS: SENNOSIDES/DOCUSATE SODIUM TAB PO SCH ×2 (08:59→22:30)
[2018-02-27] MEDS: ACETAMINOPHEN 500 MG TAB PO SCH ×3 (08:59→22:30)
[2018-02-27] MEDS: ALLOPURINOL 100 MG TAB PO SCH (08:59)
[2018-02-27] MEDS: CHOLECALCIFEROL VIT D3 1,000 UNITS TAB PO SCH (08:59)
[2018-02-27] MEDS: ATORVASTATIN CALCIUM 40 MG TAB PO SCH (08:59)
[2018-02-27] MEDS: predniSONE 5 MG TAB PO SCH (08:59)
[2018-02-27] MEDS: INSULIN GLARGINE 100 UNITS/ML UNIT SC SCH (09:00)
[2018-02-27] MEDS: CARVEDILOL 3.125 MG TAB PO SCH ×2 (09:00→17:17)
[2018-02-27] MEDS: ALFUZOSIN HCL 10 MG PO SCH (09:01)
[2018-02-27] MEDS: LATANOPROST 0.005% 2.5 ML OPHT DROPS EACHEYE SCH (09:22)
[2018-02-27] MEDS: NS 1,000 ML IV SCH (09:29)
[2018-02-27] MEDS ORDERED: LIDOCAINE 1% 300 MG/30 ML SDV ONE (11:08)
[2018-02-27] MEDS ORDERED: BUPIVACAINE 0.5% 30 ML SDV ONE (11:09)
[2018-02-27] MEDS ORDERED: DEXAMETHASONE 10 MG/ML VIAL IVP ONE (11:21)
[2018-02-27] MEDS ORDERED: NS 1,000 ML IV ONE (11:21)
[2018-02-27] MEDS ORDERED: FLUMAZENIL 0.5 MG/5 ML MDV IVP PRN (11:21)
[2018-02-27] MEDS ORDERED: NALOXONE HCL 0.4 MG/ML INJ IVP PRN (11:21)
[2018-02-27] MEDS ORDERED: MIDAZOLAM 2 MG/2 ML VIAL IVP PRN (11:21)
[2018-02-27] MEDS ORDERED: fentaNYL 100 MCG/2 ML INJ IVP PRN (11:21)
[2018-02-27] MEDS ORDERED: DEXAMETHASONE 10 MG/ML VIAL ONE (11:22)
[2018-02-27] MEDS ORDERED: MIDAZOLAM 2 MG/2 ML VIAL ONE ×2 (11:22→12:51)
[2018-02-27] MEDS ORDERED: fentaNYL 100 MCG/2 ML INJ ONE ×2 (11:23→12:51)
--- NOTE | 2018-02-27 11:25 | PDPROPOC ---
Sedation Plan of Care Sedation Plan of Care: vital signs stable, mental status noted, patient educated of risks, benefits, alternatives, patient can tolerate sedation ASA Classification: ASA 4 Planned drugs: fentanyl, midazolam Mallampati Score: Class 2 Mallampati Reference Image: Patient passed 3-3-2 rule?: Yes
--- NOTE | 2018-02-27 13:32 | PDRADPN ---
Radiology Procedure Note Date of Procedure: 02/27/18 Radiologist: Romeo Pinto Anesthesia: IV Sedation Pre-op Diagnosis: L1 comp fx Post-op Diagnosis: L1 comp fx Indication: L1 comp fx Procedure: Vertebroplasty Finding(s): L1 vertebroplasty with cavity creation. Inf/Abcess present in the surg proc area at time of surgery?: No
--- NOTE | 2018-02-27 17:17 | HOSPPROG ---
Hospitalist Progress Note Assessment/Plan: Assessment: 82 yo M p/w MAYURI, metabolic acidosis, NSTEMI, and hypotension, c/b acute metabolic encephalopathy 2/2 UTI Plan: # Acute metabolic encephalopathy. Evidenced by disorientation, somnolence, poorly arousable, all of which are acute changes from days prior, most likely 2/ 2 metabolic effects of UTI, exacerbated by toxic effects of pain Rx -improved s/p reduction in pain Rx # Klebsiella UTI. D#5/7 CTX # NSTEMI. Suspect type II in setting of above, but also likely has MVD w/ longstanding DM -cont ASA 325 in AM, bblocker -can consider either nuc stress vs. cath if fxnal status improves # Afib. Paroxysmal, hx of CVA /w LUE paresthesias/paresis as residual deficits, currently in Afib on tele (personally interpreted) -restarted coreg -restart eliquis in AM # L1 compression fracture. Causing ongoing, pervasive back pain, d/w Dr. Jordan, she will proceed w/ procedure today -low dose pain Rx # MAYURI. Oliguric, Hx ESRD w/ transplant, recent baseline Cr 0.8, resolved -cont pred 5, MMF, cyclosporin -stop IVF given anasarca, US neg for DVT # hypotension. 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 Acute, 2/2 above, off bicarb # Hypoglycemia & Hyperglycemia in setting of DM. Acute, adjusted ISS to ACHS, increase lantus tomorrow once resuming PO # Rib fractures. Cont pain mgmt, IS # Acute hyperkalemia. Resolved # Peripheral arterial disease. Resulting in R great toe ulcer, does not appear infected, has outpt f/u Diet. ADA PPx. High risk, eliquis tomorrow AM Code. DNR per patient discussion today w/ MDPOA, confirmed Dispo. ADD uncertain, assess pain mgmt s/p kypho, d/w case mgmt [facility] High-level medical complexity, high risk for worsening morbidity and/or mortality secondary issues outlined above. Subjective: bilat UE edema, tolerated procedure Objective: Vital Signs Temp Pulse Resp BP Pulse Ox 36.6 C 67 16 107/59 L 96 02/27/18 17:09 02/27/18 17:09 02/27/18 17:09 02/27/18 17:09 02/27/18 17:09 Laboratory Results 02/25/18 04:10 02/27/18 05:05 02/26/18 02/27/18 02/28/18 05:59 05:59 05:59 Intake Total 1300 1050 200 Output Total 400 1655 365 Balance 900 -605 -165 PT 15.5 SEC (12.0-15.0) H 02/19/18 21:20 INR 1.21 (0.83-1.16) H 02/19/18 21:20 - Physical Exam Constitutional: no apparent distress, not in pain, chronically ill appearing, uncomfortable Eyes: other (blind) Cardiovascular: irregularly irregular, edema (soft tissue all ext), No systolic murmur, No tachycardia Respiratory: no respiratory distress, no rales or rhonchi, clear to auscultation Gastrointestinal: normoactive bowel sounds, soft, non-tender abdomen, No distension Skin: other (scattered ecchymoses) Neurologic: AAOx3, sensation intact bilaterally, No weakness Psychiatric: interacting appropriately, not anxious, not encephalopathic, thought process linear ICD10 Worksheet Patient Problems: Problems Problem Status Onset Dyspnea Acute Elevated troponin Acute Thrombocytosis Acute Prerenal azotemia Acute Acute ischemic stroke Acute Clavicle fracture Acute Head injury due to trauma Acute Unable to ambulate Acute Closed left clavicular fracture Acute Intractable back pain Acute Multiple fractures of ribs, left side, initial encounter for closed fracture Acute Compression fracture of L1 lumbar vertebra Acute
[2018-02-27] MEDS: PATCH REMOVAL 1 EA PATCH TD SCH (22:33)
[2018-02-28] MEDS: ALFUZOSIN HCL 10 MG PO SCH (08:58)
[2018-02-28] MEDS: LIDOCAINE 4%/MENTHOL 1% PATCH TD SCH ×2 (08:58→17:33)
[2018-02-28] MEDS: FINASTERIDE 5 MG TAB PO SCH (08:59)
[2018-02-28] MEDS: LATANOPROST 0.005% 2.5 ML OPHT DROPS EACHEYE SCH (08:59)
[2018-02-28] MEDS: CYCLOSPORINE MODIFIED 25 MG PO SCH ×2 (09:00→22:07)
[2018-02-28] MEDS: ACETAMINOPHEN 500 MG TAB PO SCH ×3 (09:04→22:55)
[2018-02-28] MEDS: SENNOSIDES/DOCUSATE SODIUM TAB PO SCH ×2 (09:04→22:56)
[2018-02-28] MEDS: CHOLECALCIFEROL VIT D3 1,000 UNITS TAB PO SCH (09:04)
[2018-02-28] MEDS: ALLOPURINOL 100 MG TAB PO SCH (09:05)
[2018-02-28] MEDS: ASPIRIN EC 325 MG TAB PO SCH (09:05)
[2018-02-28] MEDS: CARVEDILOL 3.125 MG TAB PO SCH ×2 (09:05→17:00)
[2018-02-28] MEDS: URSODIOL 300 MG CAP PO SCH ×2 (09:05→22:09)
[2018-02-28] MEDS: PANTOPRAZOLE SODIUM 40 MG TAB PO SCH (09:06)
[2018-02-28] MEDS: ATORVASTATIN CALCIUM 40 MG TAB PO SCH (09:06)
[2018-02-28] MEDS: predniSONE 5 MG TAB PO SCH (09:06)
[2018-02-28] MEDS: APIXABAN 5 MG TAB PO SCH ×2 (09:07→22:09)
[2018-02-28] MEDS: MYCOPHENOLATE MOFETIL 250 MG CAP PO SCH ×2 (09:41→22:10)
[2018-02-28] MEDS: INSULIN GLARGINE 100 UNITS/ML UNIT SC SCH (10:15)
[2018-02-28] MEDS: INSULIN LISPRO 100 UNIT/ML SC SCH ×4 (10:15→22:05)
--- NOTE | 2018-02-28 10:30 | HOSPPROG ---
Hospitalist Progress Note Assessment/Plan: Assessment: 82 yo M p/w L1 compression fxr s/p mechanical fall c/b MAYURI, metabolic acidosis, NSTEMI, UTI, and worsening acute metabolic encephalopathy today 2/2 pain Rx/anaesthesia in a very malnourished person. PO intake has been a significant issue PRIOR to presentation, and family/dietary to encourage PO intake. Pain is better controlled s/p kypho, but remains very disoriented today and unable to work effectively with therapies. [facility] status [facility]. Plan: # Acute metabolic encephalopathy. Worsening today, originally metabolic effects of UTI, exacerbated today by toxic effects of pain Rx (flexeril) and anaesthesia w/ kypho -given his anasarca, fluid distribution of sedating Rx may be significant and result in delayed clearance -counseled family today that we will stop all sedating/altering Rx other than low dose oxy IR and gauge effect, recommend ongoing family reassurance of patient -start HS melatonin to modulate sleep cycle # L1 compression fracture. 2/2 mechanical fall from chronic weakness/frailty -POD#1 kypho by IR -scheduled tylenol, heat pad, oxy IR breakthrough # Klebsiella UTI. D#6/7 CTX # NSTEMI. Suspect type II in setting of above, but also likely has MVD w/ longstanding DM -cont ASA 325, bblocker -can consider either nuc stress vs. cath if fxnal status improves, but counseled family that this should be pursued s/p rehab to gauge whether he regains functional status # Afib. Paroxysmal, hx of CVA /w LUE paresthesias/paresis as residual deficits, currently in Afib -restarted coreg and eliquis # MAYURI. Oliguric, Hx ESRD w/ transplant, recent baseline Cr 0.8, resolved -cont pred 5, MMF, cyclosporin -restart 100ml/hr NS given poor PO intake # hypotension. hx of dysautonomia from DM -hold on midodrine (has used in past) given NSTEMI and suspicion for MVD # severe protein calorie malnutrition. 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 Acute, 2/2 above, off bicarb # Hypoglycemia & Hyperglycemia in setting of DM. Acute, adjusted ISS to ACHS, cont lantus # Rib fractures. Cont pain mgmt, IS # Acute hyperkalemia. Resolved # Peripheral arterial disease. Resulting in R great toe ulcer, does not appear infected, has outpt f/u w/ Dr. Bryant AFTER rehab Diet. ADA, supplements PPx. High risk, eliquis Code. DNR per patient discussion today w/ MDPOA, confirmed Dispo. ADD uncertain, worsening encephalopathy today, [facility] Subjective: patient hallucinating, talking to self, received flexeril o/n Objective: Vital Signs Temp Pulse Resp BP Pulse Ox 36.9 C 90 20 120/91 H 92 02/28/18 07:46 02/28/18 09:05 02/28/18 07:46 02/28/18 09:05 02/28/18 07:46 Laboratory Results 02/25/18 04:10 02/28/18 05:00 02/27/18 02/28/18 03/01/18 05:59 05:59 05:59 Intake Total 1050 2200 Output Total 1655 740 Balance -605 1460 PT 15.5 SEC (12.0-15.0) H 02/19/18 21:20 INR 1.21 (0.83-1.16) H 02/19/18 21:20 - Time Spent With Patient Time Spent with Patient: greater than 35 minutes Time Spent with Patient: Greater than 35 minutes spent on this patients care, greater than 50% of time spent counseling, educating, and coordinating care regarding the above mentioned plan. - Physical Exam Constitutional: no apparent distress, not in pain, chronically ill appearing, cachectic, No uncomfortable Eyes: other (blind) Cardiovascular: irregularly irregular, edema (trace bilat LE, anasarca UE), No tachycardia Respiratory: no respiratory distress, no rales or rhonchi, clear to auscultation Gastrointestinal: normoactive bowel sounds, soft, non-tender abdomen Skin: other (scattered ecchymoses) Neurologic: other (AAOx2 (person/time)) Psychiatric: not anxious, encephalopathic, poor memory, other (hallucinating, talking to self), No agitated ICD10 Worksheet Patient Problems: Problems Problem Status Onset Closed left clavicular fracture Acute Compression fracture of L1 lumbar vertebra Acute Intractable back pain Acute Multiple fractures of ribs, left side, initial encounter for closed fracture Acute Unable to ambulate Acute Acute ischemic stroke Acute Clavicle fracture Acute Dyspnea Acute Elevated troponin Acute Head injury due to trauma Acute Prerenal azotemia Acute Thrombocytosis Acute
--- NOTE | 2018-02-28 13:07 | SOAPPROG ---
SOAP Progress Note Assessment/Plan: Assessment/Plan: 82 y/o M s/p renal txp 1998 who presented after a fall with MAYURI requiring HD. MAYURI- -underlying ESRD s/p kidney transplant in 1998, baseline creat about 0.8 -MAYURI 2/2 to UTI and possible ATN now resolved -continue current immunosuppression: MMF, Pred and CSA -would continue gently IVF given low BP's today -on abx for UTI day 6/7 Lytes -K 4.9 today -Na likely pseudo with BS's>200 -continue fluids as above Acidosis -anion gap 14 -previously alkalotic -will check lactate -monitor ABG prn Lumbar compression fracture -very decompensated -s/p kyphoplasty in IR -pain control per primary team Will continue to follow. Please contact if ?'s. 02/28/18 13:07 Subjective: S/p procedure. Resting. Objective: Vital Signs Temp Pulse Resp BP Pulse Ox 36.5 C 146 H 12 94/51 L 100 02/28/18 11:30 02/28/18 11:30 02/28/18 11:30 02/28/18 11:30 02/28/18 11:30 Laboratory Results 02/25/18 04:10 02/28/18 05:00 02/27/18 02/28/18 03/01/18 05:59 05:59 05:59 Intake Total 1050 2200 Output Total 1655 740 Balance -605 1460 PT 15.5 SEC (12.0-15.0) H 02/19/18 21:20 INR 1.21 (0.83-1.16) H 02/19/18 21:20 Physical Exam - Physical Exam General Appearance: no apparent distress, thin EENT: PERRL/EOMI Neck: non-tender, supple Respiratory: chest non-tender, decreased breath sounds Cardiac/Chest: normal peripheral pulses, regular rate, rhythm Abdomen: normal bowel sounds, non-tender, soft Skin: pallor Neuro/Psych: other (resting) ICD10 Worksheet Patient Problems: Problems Problem Status Onset Closed left clavicular fracture Acute Compression fracture of L1 lumbar vertebra Acute Intractable back pain Acute Multiple fractures of ribs, left side, initial encounter for closed fracture Acute Unable to ambulate Acute Acute ischemic stroke Acute Clavicle fracture Acute Dyspnea Acute Elevated troponin Acute Head injury due to trauma Acute Prerenal azotemia Acute Thrombocytosis Acute
[2018-02-28] MEDS: NS 1,000 ML IV SCH (14:07)
[2018-02-28] MEDS: MELATONIN 3 MG TAB PO SCH (22:10)
[2018-02-28] MEDS: PATCH REMOVAL 1 EA PATCH TD SCH (22:56)
[2018-03-01] MEDS: NS 1,000 ML IV SCH ×2 (00:20→10:24)
[2018-03-01 05:15] LABS: PLATELET COUNT 453 10^3/uL (150-400)
[2018-03-01] MEDS: CARVEDILOL 3.125 MG TAB PO SCH ×2 (09:04→20:08)
[2018-03-01] MEDS: ASPIRIN EC 325 MG TAB PO SCH (09:04)
[2018-03-01] MEDS: MYCOPHENOLATE MOFETIL 250 MG CAP PO SCH ×2 (09:04→20:08)
[2018-03-01] MEDS: predniSONE 5 MG TAB PO SCH (09:05)
[2018-03-01] MEDS: CYCLOSPORINE MODIFIED 25 MG PO SCH ×2 (09:05→20:08)
[2018-03-01] MEDS: URSODIOL 300 MG CAP PO SCH ×2 (09:05→20:08)
[2018-03-01] MEDS: ALLOPURINOL 100 MG TAB PO SCH (09:06)
[2018-03-01] MEDS: SENNOSIDES/DOCUSATE SODIUM TAB PO SCH ×2 (09:06→22:06)
[2018-03-01] MEDS: ACETAMINOPHEN 500 MG TAB PO SCH ×2 (09:06→17:14)
[2018-03-01] MEDS: ATORVASTATIN CALCIUM 40 MG TAB PO SCH (09:06)
[2018-03-01] MEDS: CHOLECALCIFEROL VIT D3 1,000 UNITS TAB PO SCH (09:06)
[2018-03-01] MEDS: FINASTERIDE 5 MG TAB PO SCH (09:06)
[2018-03-01] MEDS: PANTOPRAZOLE SODIUM 40 MG TAB PO SCH (09:06)
[2018-03-01] MEDS: APIXABAN 5 MG TAB PO SCH ×2 (09:06→20:08)
[2018-03-01] MEDS: INSULIN GLARGINE 100 UNITS/ML UNIT SC SCH (09:07)
[2018-03-01] MEDS: LATANOPROST 0.005% 2.5 ML OPHT DROPS EACHEYE SCH (09:07)
[2018-03-01] MEDS: LIDOCAINE 4%/MENTHOL 1% PATCH TD SCH (09:07)
[2018-03-01] MEDS: ALFUZOSIN HCL 10 MG PO SCH (09:08)
--- NOTE | 2018-03-01 09:45 | HOSPPROG ---
Hospitalist Progress Note Assessment/Plan: Assessment: 82 yo M p/w L1 compression fxr s/p mechanical fall c/b MAYURI, metabolic acidosis, NSTEMI, UTI, and worsening acute metabolic encephalopathy today 2/2 pain Rx/anaesthesia in a very malnourished person. PO intake has been a significant issue PRIOR to presentation, and family/dietary to encourage PO intake. Pain is better controlled s/p kypho, but remains very disoriented today and unable to work effectively with therapies. [facility]. Plan: # Acute metabolic encephalopathy. Originally metabolic effects of UTI, exacerbated by toxic effects of pain Rx (flexeril) and anaesthesia w/ kypho -given his anasarca, fluid distribution of sedating Rx may be significant and result in delayed clearance - Continue holding all sedating/altering Rx other than low dose oxy IR and gauge effect, recommend ongoing family reassurance of patient - Continue HS melatonin to modulate sleep cycle (started last night) # L1 compression fracture. 2/2 mechanical fall from chronic weakness/frailty -POD#1 kypho by IR -scheduled tylenol, heat pad, oxy IR breakthrough # Klebsiella UTI. D#7 CTX # NSTEMI. Suspect type II in setting of above, but also likely has MVD w/ longstanding DM -cont ASA 325, bblocker -can consider either nuc stress vs. cath if fxnal status improves, but counseled family that this should be pursued s/p rehab to gauge whether he regains functional status # Afib. Paroxysmal, hx of CVA /w LUE paresthesias/paresis as residual deficits, currently in Afib -restarted coreg and eliquis # MAYURI. Oliguric, Hx ESRD w/ transplant, recent baseline Cr 0.8, resolved -cont pred 5, MMF, cyclosporin - Holding IVF today, restart as needed # hypotension. hx of dysautonomia from DM -hold on midodrine (has used in past) given NSTEMI and suspicion for MVD # severe protein calorie malnutrition. 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 Acute, 2/2 above, off bicarb # Hypoglycemia & Hyperglycemia in setting of DM. Acute, adjusted ISS to ACHS, cont lantus # Rib fractures. Cont pain mgmt, IS # Acute hyperkalemia. Resolved # Peripheral arterial disease. Resulting in R great toe ulcer, does not appear infected, has outpt f/u w/ Dr. Bryant AFTER rehab Diet. ADA, supplements PPx. High risk, eliquis Code. DNR per patient discussion today w/ MDPOA, confirmed Dispo. ADD uncertain, [facility] Subjective: Patient reports moderate LBP this morning Objective: Vital Signs Temp Pulse Resp BP Pulse Ox 36.8 C 72 16 108/79 96 03/01/18 07:26 03/01/18 07:26 03/01/18 07:26 03/01/18 07:26 03/01/18 07:26 Microbiology 02/23/18 16:00 Blood Culture - Final Blood 02/23/18 16:00 Blood Culture - Final Blood Laboratory Results 03/01/18 04:55 03/01/18 04:55 02/28/18 03/01/18 03/02/18 05:59 05:59 05:59 Intake Total 2200 2129 Output Total 740 620 Balance 1460 1509 PT 15.5 SEC (12.0-15.0) H 02/19/18 21:20 INR 1.21 (0.83-1.16) H 02/19/18 21:20 - Physical Exam Constitutional: chronically ill appearing Eyes: PERRL Ears, Nose, Mouth, Throat: dry mucous membranes Cardiovascular: regular rate and rhythym Respiratory: no respiratory distress Gastrointestinal: soft, non-tender abdomen Genitourinary: No denis in urethra Skin: normal color Musculoskeletal: generalized weakness Neurologic: AAOx3 ICD10 Worksheet Patient Problems: Problems Problem Status Onset Closed left clavicular fracture Acute Compression fracture of L1 lumbar vertebra Acute Intractable back pain Acute Multiple fractures of ribs, left side, initial encounter for closed fracture Acute Unable to ambulate Acute Acute ischemic stroke Acute Clavicle fracture Acute Dyspnea Acute Elevated troponin Acute Head injury due to trauma Acute Prerenal azotemia Acute Thrombocytosis Acute
[2018-03-01] MEDS: INSULIN LISPRO 100 UNIT/ML SC SCH ×4 (09:49→22:05)
--- NOTE | 2018-03-01 10:43 | ASMTCMCOM ---
CM Note CM Note Notes: Joana, the air export coordinator from the [facility] stopped by and met w/ pt. Joana has accepted pt. CM provided Joana updates. Joana reports that she can assist in setting up transportation or whichever company CM uses they can bill the [facility]. CM to follow. Plan: [facility] Date Signed: 03/01/2018 10:41 AM Electronically Signed By:HELENE Zelaya
--- NOTE | 2018-03-01 13:31 | SOAPPROG ---
SOAP Progress Note Assessment/Plan: Assessment: ESRD, kidney transplant in 1998, baseline creat about 0.8 MAYURI due to hypotension, required HD, resolved BP good today, UOP good fall, fractures, pain immunosuppression: MMF, Pred and CS-A Plan: No more HD pain control for fractures encouraged PO and physical therapy encouraged nutrition I helped him shave today, he felt a little scruffy 02/21/18 09:24 03/01/18 13:27 Subjective: up to chair at bedside still thinks he is a little confused no cp sob nausea or vomiting needs to eat better, says he is not hungry energy slowly improving sleeping OK Objective: Vital Signs Temp Pulse Resp BP Pulse Ox 36.4 C 79 12 103/70 97 03/01/18 11:21 03/01/18 11:21 03/01/18 11:21 03/01/18 11:21 03/01/18 11:21 Microbiology 02/23/18 16:00 Blood Culture - Final Blood 02/23/18 16:00 Blood Culture - Final Blood Laboratory Results 03/01/18 04:55 03/01/18 04:55 02/28/18 03/01/18 03/02/18 05:59 05:59 05:59 Intake Total 2200 2129 Output Total 740 620 150 Balance 1460 1509 -150 PT 15.5 SEC (12.0-15.0) H 02/19/18 21:20 INR 1.21 (0.83-1.16) H 02/19/18 21:20 Physical Exam - Physical Exam General Appearance: alert, thin Neck: normal inspection Respiratory: No rhonchi, No wheezing Cardiac/Chest: systolic murmur, No edema, No friction rub Abdomen: normal bowel sounds, non-tender, soft, other (renal allograft NT, no bruit) Skin: warm/dry Extremities: No pedal edema Neuro/Psych: alert, normal mood/affect ICD10 Worksheet Patient Problems: Problems Problem Status Onset Closed left clavicular fracture Acute Compression fracture of L1 lumbar vertebra Acute Intractable back pain Acute Multiple fractures of ribs, left side, initial encounter for closed fracture Acute Unable to ambulate Acute Acute ischemic stroke Acute Clavicle fracture Acute Dyspnea Acute Elevated troponin Acute Head injury due to trauma Acute Prerenal azotemia Acute Thrombocytosis Acute
[2018-03-01] MEDS: D50W 25 GM/50 ML SYR IVP PRN (17:32)
[2018-03-01] MEDS: MELATONIN 3 MG TAB PO SCH (20:08)
[2018-03-01] MEDS: PATCH REMOVAL 1 EA PATCH TD SCH (22:56)
[2018-03-02] MEDS: ACETAMINOPHEN 500 MG TAB PO SCH ×2 (00:15→10:15)
[2018-03-02] MEDS: INSULIN LISPRO 100 UNIT/ML SC SCH ×2 (09:08→13:10)
[2018-03-02] MEDS: CYCLOSPORINE MODIFIED 25 MG PO SCH (10:14)
[2018-03-02] MEDS: predniSONE 5 MG TAB PO SCH (10:15)
[2018-03-02] MEDS: ATORVASTATIN CALCIUM 40 MG TAB PO SCH (10:15)
[2018-03-02] MEDS: ASPIRIN EC 325 MG TAB PO SCH (10:15)
[2018-03-02] MEDS: SENNOSIDES/DOCUSATE SODIUM TAB PO SCH (10:16)
[2018-03-02] MEDS: CARVEDILOL 3.125 MG TAB PO SCH (10:16)
[2018-03-02] MEDS: ALLOPURINOL 100 MG TAB PO SCH (10:16)
[2018-03-02] MEDS: MYCOPHENOLATE MOFETIL 250 MG CAP PO SCH (10:17)
[2018-03-02] MEDS: APIXABAN 5 MG TAB PO SCH (10:17)
[2018-03-02] MEDS: PANTOPRAZOLE SODIUM 40 MG TAB PO SCH (10:18)
[2018-03-02] MEDS: URSODIOL 300 MG CAP PO SCH (10:19)
[2018-03-02] MEDS: FINASTERIDE 5 MG TAB PO SCH (10:19)
[2018-03-02] MEDS: CHOLECALCIFEROL VIT D3 1,000 UNITS TAB PO SCH (10:19)
[2018-03-02] MEDS: LIDOCAINE 4%/MENTHOL 1% PATCH TD SCH (10:20)
[2018-03-02] MEDS: LATANOPROST 0.005% 2.5 ML OPHT DROPS EACHEYE SCH (10:21)
--- NOTE | 2018-03-02 11:35 | WOCRNPDOC ---
WOCRN Advanced Assessment Note - Skin Integrity Problem, Advanced Assess Right Toe Diabetic Ulcer Dressing Type: Polymem Dressing Description: Clean/Dry, Intact Exudate Amount: None Integumentary Issue Intervention: Visualized Under Dressing, Silver Gel Applied Kari Wound Tissue: Blanching, Erythema, Painful/Tender Kari Wound Swelling: None Wound Bed Color: Brown, Yellow Wound Bed Constitution: Adhered Slough Site Measurement - Head-to-Toe Length X Width X Depth (cm): 0.3x0.3xadhered slough Skin Integrity Problem Comment: Diabetic foot ulcer on right great toe. Cleansed with NS and gauze. No drainage noted on the dressing. Silvasorb applied and polymem dressing in place. Wound care will round again next week.
[2018-03-02 12:14] VITALS: BP 117/68
[2018-03-02] MEDS: ALFUZOSIN HCL 10 MG PO SCH (13:10)
--- NOTE | 2018-03-02 13:15 | PDIAF ---
- Diagnosis Diagnosis: L1 compression fracture, MAYURI, UTI, Acute encephalopathy Code Status: Do Not Resuscitate - Medication Management Discharge Medications: electronically signed and located in the Home Medication List. - Orders Services needed: Physical Therapy, Occupational Therapy Case: Yes Additional Instructions: Change dressings to Right Great Toe every 2 days and prn. 1. Clean with ns and gauze 2. Silvasorb gel to wound bed 3. Cover with Polymem toe dressing with printed word side up (plain side down). 4. OK to use small allevyn life dressing if polymem toe dressing not available. Neris Sheridan RN Wound Care Team - Follow Up Care Current Providers and Referrals: Arturo Henriquez MD [Medical Doctor] - (for clavicle fracture follow up. call please) Elsa Carias MD [Primary Care Provider] - As per Instructions Aislinn Wolfe MD [Medical Doctor] -
--- NOTE | 2018-03-02 13:18 | PDDCSUM ---
Discharge Summary Discharge Summary: Date of Admission: 02/14/2018 Date of Discharge: 03/02/2018 Consults: Cardiology, ID Followup: Cardiology, PCP Hospital Course Problem List: Assessment: 82 yo M p/w L1 compression fxr s/p mechanical fall c/b MAYURI, metabolic acidosis, NSTEMI, UTI, and worsening acute metabolic encephalopathy. Plan: # Acute metabolic encephalopathy. Originally metabolic effects of UTI, exacerbated by toxic effects of pain Rx (flexeril) and anaesthesia w/ kypho - given his anasarca, fluid distribution of sedating Rx may be significant and result in delayed clearance - Continue holding all sedating/altering Rx other than low dose oxy IR and gauge effect, recommend ongoing family reassurance of patient - Continue HS melatonin to modulate sleep cycle # L1 compression fracture. 2/2 mechanical fall from chronic weakness/frailty -POD#3 kypho by IR -scheduled tylenol, heat pad, oxy IR breakthrough # Klebsiella UTI. S/p 7 day course of CTX # NSTEMI. Suspect type II in setting of above, but also likely has MVD w/ longstanding DM -cont ASA 325, bblocker -Patient to have followup with cardiology to evaluate need for further risk stratification with nuc stress vs. cath # Afib. Paroxysmal, hx of CVA /w LUE paresthesias/paresis as residual deficits, currently in Afib -Continue coreg and eliquis # MAYURI. Oliguric, Hx ESRD w/ transplant, recent baseline Cr 0.8, resolved - cont pred 5, MMF, cyclosporin # hypotension. hx of dysautonomia from DM -hold on midodrine (has used in past) given NSTEMI and suspicion for MVD # severe protein calorie malnutrition. 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 Acute, 2/2 above, off bicarb # Hypoglycemia & Hyperglycemia in setting of DM. Acute, adjusted ISS to ACHS, cont lantus # Rib fractures. Cont pain mgmt, IS # Acute hyperkalemia. Resolved # Peripheral arterial disease. Resulting in R great toe ulcer, does not appear infected, has outpt f/u w/ Dr. Bryant AFTER rehab
--- NOTE | 2018-03-02 14:30 | ASMTDCNOTE ---
Case Management Discharge Discharge Order Complete? Answers: Yes Patient to Obtain Answers: Other Notes: [place] [facility] Medications Transportation Arranged Answers: [facility] will Pick (Date 03/02/2018 02:26 PM & Time) EMTALA Complete Answers: No Case Management Transport Answers: No Form Complete Faxed Final Orders Answers: Yes Agency/Facility Transfer Answers: Yes Report Printed & Faxed to Receiving Agency Family Notified Answers: Yes Discharge Comments Notes: Pts case discussed w/ Dr. Toro regarding d/c POC. Pt is being discharged today. CM notified pts daughter Vianca about the d/c. CM spoke to Joana at [facility] and she reports that they would pay for the transport. Pt is being transported in a stretcher per the nurses/pt's recommendation/request. DC orders sent. MILLI provided GERMAN Tavares w/ phone number to give report. CM available for changes. Plan: [facility] Date Signed: 03/02/2018 02:30 PM Electronically Signed By:HELENE Zelaya
--- NOTE | 2018-03-02 14:31 | ASMTLACE ---
LACE Length of stay for Answers: 14 days or more current admission Acuity / Level of Answers: Yes Care: Did the patient have an inpatient admission? Comorbidities - select Answers: Cerebrovascular disease all that apply (CVA, TIA, aneurysms, vasc ular dementia) Diabetes (uncontrolled or controlled) Mild liver or renal disease Other Notes: AFib; Pacemaker; Kidney transplant # of Emergency department Answers: 3-4 visits in the last 6 months Score: 18 Date Signed: 03/02/2018 02:30 PM Electronically Signed By:HELENE Zelaya
--- NOTE | 2018-03-05 09:14 | ASDISCHSUM ---
Discharge Information Plan Status:SNF Medically Cleared to Leave:03/02/2018 Discharge Date:03/02/2018 02:30 PM CM D/C Disposition: ADT D/C Disposition:Detention Facility Projected Discharge Date:02/17/2018 11:00 AM Transportation at D/C: Discharge Delay Reason: Follow-Up Date:02/17/2018 11:00 AM Discharge Slot: Final Diagnosis: Placement Information Referral Type:*Fci/SNF Referral ID:[id number] Provider Name:[facility] Address 1:[address] [place] [address] Address 2: City:[place] Selection Factors: State:[place] Patient Contact Information Contact Name:FABIANAJEFFNIKITA Relationship: Address:[address] City:[place] Alternate Phone: State/Zip Code:[place] [address] Email: Financial Information Financial Class:Medicare Primary Plan Desc:MEDICARE INPATIENT Primary Plan Number:[id number] Secondary Plan Desc:[facility] Secondary Plan Number:[id number] Assessment Information LACE LACE Length of stay for Answers: 14 days or more current admission Acuity / Level of Answers: Yes Care: Did the patient have an inpatient admission? Comorbidities - select Answers: Cerebrovascular disease all that apply (CVA, TIA, aneurysms, vasc ular dementia) Diabetes (uncontrolled or controlled) Mild liver or renal disease Other Notes: AFib; Pacemaker; Kidney transplant # of Emergency department Answers: 3-4 visits in the last 6 months Score: 18 Date Signed: 03/02/2018 02:30 PM Electronically Signed By:HELENE Zelaya [facility] MILLI Progress Note CM Note CM Note Notes: Patient admitted with back pain. Per notes, he sustained a fall 01/26 and suffered a clavicle and some rib fractures. He also has a L1 compression fracture upon imaging. Conservative measures will be tried first; patient may also qualify for a kyphoplasty w IR. Patient normally lives independently w his at the [facility]. I spoke w his daughter Jeremías who is in from [place] of [place], and the family (there are two other daughters, as well) realizes that the patient needs a higher level of care. They have applied to live at [facility] in [place], which includes independent, assisted, memory care, and SNF. I explained that patient may need to d/c directly to SNF or to assisted living with home care. PT/OT/[employer]AMINER evals still pending. Case Management will follow. Date Signed: 02/15/2018 10:30 AM Electronically Signed By:Nelida Ureña RN [facility] CM Progress Note CM Note CM Note Notes: PT/OT rec SNF. Spoke with pt and Miranda, plan for d/c is [facility] where pt has been accepted. CM to follow. Date Signed: 02/16/2018 02:56 PM Electronically Signed By:MICAELA Shaver [facility] CM Progress Note CM Note CM Note Notes: Pt to transfer to step down. Updates sent to [facility] which remains d/c plan of care. Date Signed: 02/19/2018 11:17 AM Electronically Signed By:MICAELA Shaver BC CM Progress Note CM Note CM Note Notes: Patient to have a Palliative consult Monday to talk about code status and treatment goals. Date Signed: 02/20/2018 03:37 PM Electronically Signed By:Dilma Marquez LCSW [facility] CM Progress Note CM Note CM Note Notes: 02/23/2018 Case Management Note Faxed updates to [facility]. Case Management d/c poc: [facility] Case Management to follow. Date Signed: 02/23/2018 02:56 PM Electronically Signed By:Yanelis Whiteside RN BC CM Progress Note CM Note CM Note Notes: 02/26/2018 Case Management Note Discussed SNF placement with daughter Samantha [phone]. Family [place] the [place] [facility] residential [address] [place] [phone] . Faxed records and referral via [email or web address]. Called Mary Lou on the phone. Rep from SNF will visit pt on Mon or after PT clears from upcoming kyphoplasty procedure. Case Management d/c poc: [place] [facility] pending acceptance vs [facility] Case Management to follow. Date Signed: 02/26/2018 10:04 AM Electronically Signed By:Yanelis Whiteside RN [facility] CM Progress Note CM Note CM Note Notes: Joana, the document coordinator from the [place] stopped by and met w/ pt. Joana has accepted pt. provided Joana updates. Joana reports that she can assist in setting up transportation or whichever company CM uses they can bill the [place]. CM to follow. Plan[facility] Date Signed: 03/01/2018 10:41 AM Electronically Signed By:HELENE Zelaya Case Management Discharge Plan Note Case Management Discharge Discharge Order Complete? Answers: Yes Patient to Obtain Answers: Other Notes: [place] [facility] Medications Transportation Arranged Answers: [facility] will Pick (Date 03/02/2018 02:26 PM & Time) KAREN Complete Answers: No Case Management Transport Answers: No Form Complete Faxed Final Orders Answers: Yes Agency/Facility Transfer Answers: Yes Report Printed & Faxed to Receiving Agency Family Notified Answers: Yes Discharge Comments Notes: Pts case discussed w/ Dr. Toro regarding d/c POC. Pt is being discharged today. CM notified pts daughter Vianca about the d/c. CM spoke to Joana at [facility] and she reports that they would pay for the transport. Pt is being transported in a stretcher per the nurses/pt's recommendation/request. DC orders sent. MILLI provided GERMAN Tavares w/ phone number to give report. CM available for changes. Plan: [place] [facility] Date Signed: 03/02/2018 02:30 PM Electronically Signed By:HELENE Zelaya Intervention Information Intervention Type:*IM-Signed Date of Service:03/02/2018 02:03 PM Patient Type:Inpatient Staff Member:Dinora Toussaint Hours: Discipline: Severity: Comment:
== END 2018-03-02 14:30 | DRG 515 ==
LOC: F3N 21:33 → F2N 02-19 12:00 → F2W 02-22 18:35
PROVIDERS: ADMIT Internal Medicine; ATTEND Internal Medicine
DX: S32.010A Wedge compression fracture of first lumbar vertebra, initial encounter for closed fracture (principal); W19.XXXA Unspecified fall, initial encounter; S22.42XD Multiple fractures of ribs, left side, subsequent encounter for fracture with routine healing; S42.002D Fracture of unspecified part of left clavicle, subsequent encounter for fracture with routine healing; G93.40 Encephalopathy, unspecified; I21.4 Non-ST elevation (NSTEMI) myocardial infarction; N17.9 Acute kidney failure, unspecified; N39.0 Urinary tract infection, site not specified; B96.1 Klebsiella pneumoniae [K. pneumoniae] as the cause of diseases classified elsewhere; E43 Unspecified severe protein-calorie malnutrition; E10.22 Type 1 diabetes mellitus with diabetic chronic kidney disease; N18.6 End stage renal disease; I48.0 Paroxysmal atrial fibrillation; E87.2 Acidosis; E87.6 Hypokalemia; E10.65 Type 1 diabetes mellitus with hyperglycemia; E10.649 Type 1 diabetes mellitus with hypoglycemia without coma; Z89.432 Acquired absence of left foot; I69.398 Other sequelae of cerebral infarction; Z95.0 Presence of cardiac pacemaker; Z87.19 Personal history of other diseases of the digestive system; Z87.891 Personal history of nicotine dependence; Z94.0 Kidney transplant status; Z66 Do not resuscitate
CPT/HCPCS: 80158-90; 84134-90; 85520-90; 96374; 97116-GP; 97161-GP; 97166-GO; 97530-GO; 97530-GP; 97535-GO; G8978-GP-CL; G8979-GP-CJ; G8981-GP-CL; G8982-GP-CJ; G8987-GO-CK; G8987-GO-CL; G8988-GO-CJ; J0696; J1100; J1642; J1644; J1815; J2250; J2270; J2405; J2997; J3010; J3475; J7512; J7613